=== PATIENT | female | born 1940 | race Caucasian/White ===

== ENCOUNTER 2018-06-11 11:49 | Observation (INO) | payer OTHER, BC ==
[2018-06-11] MEDS ORDERED: MORPHINE 4 MG/ML SYR ONE (12:24)
[2018-06-11] MEDS ORDERED: PROMETHAZINE 25 MG/ML VIAL ONE (12:24)
--- NOTE | 2018-06-11 13:07 | RAD REPORT ---
EXAM DESCRIPTION: CT - Head C Spine Cap Wo Con - 06/11/2018 12:34 pm TECHNIQUE: Computed axial tomography of the head and cervical spine was obtained. Coronal and sagitt al reconstruction was performed Computed axial tomography of the chest, abdomen and pelvis was obtained. Contrast was not requested. All CT scans are performed using dose optimization technique as appropriate and may include automated exposure control or mA/KV adjustment according to patient size. CLINICAL HISTORY: Head and neck injury with chest and abdominal pain status post fall COMPARISON: CTs from 2014 2016 FINDINGS: An intracranial bleed is not seen. The ventricles are normal in caliber. An old right cerebral infarct is present. An extra-axial fluid collection is not seen. Fluid within the sinuses/mastoids is not seen. A cervical fracture is not seen. No dislocation is noted. The evaluation of mediastinum, rosy, vessels, solid organs and bowel are limited secondary to the lac k of contrast administration. A mediastinal hematoma is not noted. A small to moderate right pleural effusion is present with right basilar atelectasis. Is not seen. A lung contusion is not present. The liver,spleen, pancreas, adrenals,kidneys and bladder do not demonstrate a traumatic injury. The rectum is distended with stool measuring 7.9 centimeters Mild edema is present within the subcutaneous tissues of the left flank IMPRESSION: 1. No acute intracranial abnormality is seen. 2. A cervical fracture is not visualized. 3. Mild edema within the subcutaneous tissues of the left flank may indicate contusion. Otherwise, no traumatic injury involving the chest/abdomen/pelvis is seen
--- NOTE | 2018-06-11 14:20 | RAD REPORT ---
EXAM DESCRIPTION: RAD - Femur Right - 06/11/2018 1:38 pm CLINICAL HISTORY: Right leg pain FINDINGS: No fracture is seen. The bones are osteoporotic.
--- NOTE | 2018-06-11 14:44 | RAD REPORT ---
EXAM DESCRIPTION: RAD - Femur Left - 06/11/2018 1:38 pm CLINICAL HISTORY: Left leg pain . FINDINGS: The bones are osteoporotic. There appears to be a fat fluid level within the knee joint. Although a fracture is not seen an occult fracture of the knee is suspected given the apparent lipohe marthrosis
--- NOTE | 2018-06-11 15:03 | ER ---
Nurse's Notes [facility] Name: Zeinab Deluca Age: 78 yrs Sex: Female : 1940 Arrival Date: 06/11/2018 Time: 11:57 Bed 7 Private MD: Diagnosis: Fecal impaction;Fall from bed;Pain in left knee;Contusion of flank Presentation: 06/11 11:57 Presenting complaint: [facility] staff member reports that patient fell recently ss (Wednesday), and had an XRAY of L femur and L hip obtained today. Nondisplaced Subacute fracture is reported to L femur. Son requested that patient come to ER for further evaluation of fracture. Transition of care: patient was received from another setting of care ([facility]), [facility]. Onset of symptoms is unknown. Risk Assessment: Do you want to hurt yourself or someone else? Patient reports no desire to harm self or others. Initial Sepsis Screen: Does the patient meet any 2 criteria? No. Patient's initial sepsis screen is negative. Does the patient have a suspected source of infection? No. Patient's initial sepsis screen is negative. Care prior to arrival: None. 11:57 Method Of Arrival: Stretcher ss 11:57 Acuity: NAYELY 3 ss Historical: - Allergies: 12:04 Demerol; hb 12:04 Tramadol HCl; hb - Home Meds: 12:04 acetaminophen 325 mg Oral tab 1 tab every 4-6 hours for Pain [Active]; albuterol hb sulfate 0.63 mg/3 mL Inhl nebu as needed [Active]; apixaban 5mg Oral 1 tab 2 times per day [Active]; carvedilol 3.125 mg Oral tab 1 tab 2 times per day [Active]; Claritin Oral [Active]; divalproex 125 mg Oral TbEC [Active]; docu soft [Active]; Fleet Enema 19-7 gram/118 mL Rectal enem as needed for constipation [Active]; Li-Lanta 200-200-20 mg/5 mL Oral susp 30 mL Q4H [Active]; Klor-Con M20 20 mEq Oral TbTQ 1 tab once daily for Hypokalemia Prevention [Active]; melatonin 3 mg Oral tab [Active]; Lasix 20 mg Oral tab for Peripheral Edema due to Chronic Heart Failure [Active]; promethazine 25 mg/mL injection soln 1 mL Q8H for Nausea and Vomiting [Active]; Novolin R Sub-Q [Active]; Risperdal 1 mg Oral tab 1 tab once daily [Active]; Santyl Topical [Active]; sertraline 50 mg Oral tab 1 tab once daily [Active]; trazodone 50 mg Oral tab 1 tab [Active]; - PMHx: 12:04 Anxiety; Atrial Fib; Cerebral Atherosclerosis; CHF; chronic kidney disease; CVA; hb Depression; Diabetes - NIDDM; DYSPHAGIA; Hyperlipidemia; Hypertension; schizoaffective disorder; TIA; - Immunization history:: Adult Immunizations up to date. - Social history:: Smoking status: Patient/guardian denies using tobacco. - Ebola Screening: : No symptoms or risks identified at this time. Screenin:49 Abuse screen: no s/s abuse. Nutritional screening: No deficits noted. Tuberculosis hb screening: No symptoms or risk factors identified. Fall Risk Total Peralta Fall Scale indicates High Risk Score (45 or more points). Fall prevention measures have been instituted. Side Rails Up X 2 Frequent Obs/Assessments Occuring As available patient and family educated on Fall Prevention Program and Strategies. Assessment: 12:05 General: Appears in no apparent distress. uncomfortable, Behavior is cooperative, hb crying. Pain: Unable to use pain scale. Patient appears to be crying, to be grimacing, to be moaning, FLACC scale score is 8 out of 10. Neuro: Level of Consciousness is awake, confused, Oriented to person. Cardiovascular: Heart tones S1 S2 present Capillary refill < 3 seconds Patient's skin is warm and dry. Respiratory: Airway is patent Trachea midline Respiratory effort is even, unlabored, Respiratory pattern is regular, symmetrical, Breath sounds are clear bilaterally. GI: No signs and/or symptoms were reported involving the gastrointestinal system. : No signs and/or symptoms were reported regarding the genitourinary system. EENT: No signs and/or symptoms were reported regarding the EENT system. Derm: Skin is intact, is healthy with good turgor, Skin is pink, warm \T\ dry. Musculoskeletal: shortening and external rotation of right leg noted. 12:35 Reassessment: Pt transported to radiology via stretcher with tech. 13:16 Reassessment: Pt returned from radiology via stretcher with tech. hb 14:00 Reassessment: Patient appears in no apparent distress at this time. No changes from hb previously documented assessment. Patient and/or family updated on plan of care and expected duration. Pain level reassessed. 15:00 Reassessment: Patient appears in no apparent distress at this time. No changes from hb previously documented assessment. Patient and/or family updated on plan of care and expected duration. Pain level reassessed. 16:00 Reassessment: Patient appears in no apparent distress at this time. No changes from hb previously documented assessment. Patient and/or family updated on plan of care and expected duration. Pain level reassessed. Admission ordered, awaiting room assignment at this time. Vital Signs: 12:01 BP 180 / 79; Pulse 50; Resp 16; Temp 98.1; Pulse Ox 94% on R/A; Pain 8/10; hb 13:15 BP 196 / 63; Pulse 50; Resp 15; Pulse Ox 97% on 2 lpm NC; hb 14:30 BP 147 / 62; Pulse 50; Resp 15; Pulse Ox 99% on 2 lpm NC; hb 15:30 BP 156 / 66; Pulse 54; Resp 14; Pulse Ox 97% on 2 lpm NC; hb 16:30 BP 161 / 62; Pulse 54; Resp 15; Pulse Ox 95% on 2 lpm NC; hb ED Course: 11:57 Patient arrived in ED. ss 12:03 Isa Quiñonez FNP-C is [facility]. snw 12:03 Leodan Saleh MD is Attending Physician. snw 12:05 Arm band placed on right wrist. hb 12:10 Patient has correct armband on for positive identification. Placed in gown. Bed in low hb position. Call light in reach. Side rails up X2. 12:12 Triage completed. ss 12:15 Inserted saline lock: 22 gauge in right hand, using aseptic technique. Blood collected. hb 12:21 Nely Rankin, RN is Primary Nurse. hb 12:[address] mw3 12:31 CT completed. Patient tolerated procedure well. Patient moved back from CT. mw3 12:34 CT Traumagram (Head C Spine CAP wo con) In Process Unspecified. EDMS 13:38 Femur Right XRAY In Process Unspecified. EDMS 13:38 Femur Left XRAY In Process Unspecified. EDMS 15:02 Andrew Frazier DO is Hospitalizing Provider. snw 16:33 No provider procedures requiring assistance completed. Patient admitted, IV remains in hb place. Administered Medications: 12:22 Drug: Phenergan 12.5 mg Route: IVP; Site: right hand; hb 13:15 Follow up: Response: No adverse reaction hb 12:22 Drug: morphine 4 mg Route: IVP; Site: right antecubital; hb 13:15 Follow up: Response: No adverse reaction hb 15:00 Drug: Dulcolax Suppository 10 mg Route: CT; hb 16:00 Follow up: Response: No adverse reaction hb Outcome: 15:03 Decision to Hospitalize by Provider. snw 16:33 Admitted to Tele accompanied by tech, via stretcher, room 431, with oxygen, with chart, hb Report called to Jelena. CHUY 16:33 Condition: stable 16:33 Instructed on the need for admit. 16:46 Patient left the ED. Signatures: Dispatcher [employer] EDOH Isa Quiñonez, PULPWOOD CUTTER-C PULPWOOD CUTTER-Csnw Soraya Hernandez, RN RN Nely Rankin RN RN Annie Randolph mw3 Corrections: (The following items were deleted from the chart) 12:15 11:57 Acuity: NAYELY 4 ss ss
--- NOTE | 2018-06-11 15:03 | EDPHYS ---
Physician Documentation [facility] Name: Zeinab Deluca Age: 78 yrs Sex: Female : 1940 Arrival Date: 06/11/2018 Time: 11:57 Bed 7 Private MD: ED Physician Leodan Saleh HPI: 06/11 12:22 This 78 yrs old Female presents to ER via Stretcher with complaints of Leg snw Pain. 12:22 The patient presents with pain, that is acute. The complaints affect the right leg and snw left leg. Context: The problem [facility] sustained at a [facility] or assisted [facility] facility, resulted from the patient falling, from bed, the patient is not able to bear weight, the patient is not able to ambulate, Problem is a result from a previous injury: bedbound. Onset: The symptoms/episode began/occurred 4 day(s) ago, and became persistent. Associated signs and symptoms: Pertinent positives: pain. Severity of symptoms: At their worst the symptoms were moderate, severe. It is unknown whether or not the patient has had similar symptoms in the past. It is unknown whether or not the patient has recently seen a physician. Historical: - Allergies: 12:04 Demerol; hb 12:04 Tramadol HCl; hb - Home Meds: 12:04 acetaminophen 325 mg Oral tab 1 tab every 4-6 hours for Pain [Active]; albuterol hb sulfate 0.63 mg/3 mL Inhl nebu as needed [Active]; apixaban 5mg Oral 1 tab 2 times per day [Active]; carvedilol 3.125 mg Oral tab 1 tab 2 times per day [Active]; Claritin Oral [Active]; divalproex 125 mg Oral TbEC [Active]; docu soft [Active]; Fleet Enema 19-7 gram/118 mL Rectal enem as needed for constipation [Active]; Li-Lanta 200-200-20 mg/5 mL Oral susp 30 mL Q4H [Active]; Klor-Con M20 20 mEq Oral TbTQ 1 tab once daily for Hypokalemia Prevention [Active]; melatonin 3 mg Oral tab [Active]; Lasix 20 mg Oral tab for Peripheral Edema due to Chronic Heart Failure [Active]; promethazine 25 mg/mL injection soln 1 mL Q8H for Nausea and Vomiting [Active]; Novolin R Sub-Q [Active]; Risperdal 1 mg Oral tab 1 tab once daily [Active]; Santyl Topical [Active]; sertraline 50 mg Oral tab 1 tab once daily [Active]; trazodone 50 mg Oral tab 1 tab [Active]; - PMHx: 12:04 Anxiety; Atrial Fib; Cerebral Atherosclerosis; CHF; chronic kidney disease; CVA; hb Depression; Diabetes - NIDDM; DYSPHAGIA; Hyperlipidemia; Hypertension; schizoaffective disorder; TIA; - Immunization history:: Adult Immunizations up to date. - Social history:: Smoking status: Patient/guardian denies using tobacco. - Ebola Screening: : No symptoms or risks identified at this time. ROS: 12:21 Constitutional: Negative for fever, chills, and weight loss, Eyes: Negative for injury, snw pain, redness, and discharge, ENT: Negative for injury, pain, and discharge, Neck: Negative for injury, pain, and swelling, Cardiovascular: Negative for chest pain, palpitations, and edema, Respiratory: Negative for shortness of breath, cough, wheezing, and pleuritic chest pain, Abdomen/GI: Negative for abdominal pain, nausea, vomiting, diarrhea, and constipation, Back: Negative for injury and pain, : Negative for injury, bleeding, discharge, and swelling, Skin: Negative for injury, rash, and discoloration. 12:21 MS/extremity: Positive for Son notified of femur fx on left - pt apparently fell from bed about the middle of the week. Had outpt x-rays showing nondisplaced left femur fx. Son asked pt be evaluated in ED. Exam: 12:18 Head/Face: Normocephalic, atraumatic. Eyes: Pupils equal round and reactive to light, snw extra-ocular motions intact. Lids and lashes normal. Conjunctiva and sclera are non-icteric and not injected. Cornea within normal limits. Periorbital areas with no swelling, redness, or edema. Neck: Trachea midline, no thyromegaly or masses palpated, and no cervical lymphadenopathy. Supple, full range of motion without nuchal rigidity, or vertebral point tenderness. No Meningismus. Chest/axilla: Normal chest wall appearance and motion. Nontender with no deformity. No lesions are appreciated. 12:18 Abdomen/GI: Soft, non-tender, with normal bowel sounds. No distension or tympany. No guarding or rebound. No evidence of tenderness throughout. Back: No spinal tenderness. No costovertebral tenderness. Full range of motion. Skin: Warm, dry with normal turgor. Normal color with no rashes, no lesions, and no evidence of cellulitis. 12:18 Constitutional: The patient appears awake, obese, in obvious pain. 12:18 Cardiovascular: Rate: bradycardic, Heart sounds: murmur. 12:18 Respiratory: Respirations: shallow respirations, O2 on per protocol. 12:18 Musculoskeletal/extremity: Extremities: ROM: limited active range of motion due to pain, limited passive range of motion due to pain, Pulses: are normal with no appreciated deficits, Edema, mild diffuse edema is present, appears to be in pain at bilateral lower extremities Weight bearing: is unable to bear weight, foot drop to left. 12:18 Neuro: Orientation: to person, Mentation: confused. Vital Signs: 12:01 BP 180 / 79; Pulse 50; Resp 16; Temp 98.1; Pulse Ox 94% on R/A; Pain 8/10; hb 13:15 BP 196 / 63; Pulse 50; Resp 15; Pulse Ox 97% on 2 lpm NC; hb 14:30 BP 147 / 62; Pulse 50; Resp 15; Pulse Ox 99% on 2 lpm NC; hb 15:30 BP 156 / 66; Pulse 54; Resp 14; Pulse Ox 97% on 2 lpm NC; hb 16:30 BP 161 / 62; Pulse 54; Resp 15; Pulse Ox 95% on 2 lpm NC; hb MDM: 12:06 Patient medically screened. snw 15:04 Data reviewed: vital signs, nurses notes. Data interpreted: Pulse oximetry: on room air snw is 99 %. Interpretation: normal. Counseling: I had a detailed discussion with the patient and/or guardian regarding: the historical points, exam findings, and any diagnostic results supporting the discharge/admit diagnosis, the presence of at least one elevated blood pressure reading (>120/80) during this emergency department visit, radiology results, the need for further work-up and treatment in the hospital, poor functional termite exterminator outcome. Physician consultation: Andrew Frazier DO was called at 15:05, was contacted at 15:05, regarding admission, to the telemetry unit. 10/20 14:52 Order name: CBC with Diff; Complete Time: 15:52 snw 06/11 14:52 Order name: Chem 7; Complete Time: 15:53 snw 06/11 12:17 Order name: CT Traumagram (Head C Spine CAP wo con); Complete Time: 13:17 snw 06/11 14:52 Order name: PT-INR; Complete Time: 15:52 snw 06/11 16:14 Order name: T4 Free; Complete Time: 16:18 EDMS 06/11 16:14 Order name: Thyroid Stimulating Hormone; Complete Time: 16:18 EDMS 06/11 12:17 Order name: Femur Right XRAY; Complete Time: 14:24 snw 06/11 12:17 Order name: Femur Left XRAY; Complete Time: 14:45 snw 06/11 14:45 Order name: Kamari wrap-joint: left; Complete Time: 15:59 snw 06/11 14:52 Order name: SL; Complete Time: 15:37 snw 06/11 14:53 Order name: EKG; Complete Time: 14:53 snw 06/11 14:53 Order name: EKG - Nurse/Tech; Complete Time: 15:37 snw Administered Medications: 12:22 Drug: Phenergan 12.5 mg Route: IVP; Site: right hand; hb 13:15 Follow up: Response: No adverse reaction hb 12:22 Drug: morphine 4 mg Route: IVP; Site: right antecubital; hb 13:15 Follow up: Response: No adverse reaction hb 15:00 Drug: Dulcolax Suppository 10 mg Route: [place]; hb 16:00 Follow up: Response: No adverse reaction hb Disposition: 17:25 Co-signature as Attending Physician, Leodan Saleh MD I agree with the assessment and kdr plan of care. Disposition: 06/11/18 15:03 Hospitalization ordered by Andrew Frazier for Observation. Preliminary diagnosis are Fecal impaction, Fall from bed, Pain in left knee, Contusion of flank. - Bed requested for Telemetry/MedSurg (observation). - Status is Observation. hb - Condition is Stable. - Problem is new. - Symptoms are unchanged. UTI on Admission? No Signatures: Dispatcher [employer] Leodna Lake MD MD [facility] Isa Quiñonez, OIL BOILER-C OIL BOILER-Csnw Nely Rankin, RN RN Lola Gordon, CHUY RN df Corrections: (The following items were deleted from the chart) 16:08 15:03 Hospitalization Ordered by Andrew Frazier DO for Observation. Preliminary df diagnosis is Fecal impaction; Fall from bed; Pain in left knee; Contusion of flank. Bed requested for Telemetry/MedSurg (observation). Status is Observation. Condition is Stable. Problem is new. Symptoms are unchanged. UTI on Admission? No. snw 16:46 16:08 06/11/2018 15:03 Hospitalization Ordered by Andrew Frazier DO for Observation. Preliminary diagnosis is Fecal impaction; Fall from bed; Pain in left knee; Contusion of flank. Bed requested for Telemetry/MedSurg (observation). Status is Observation. Condition is Stable. Problem is new. Symptoms are unchanged. UTI on Admission? No. df
[2018-06-11] MEDS ORDERED: ONDANSETRON 4 MG/2 ML VIAL IV PRN (15:29)
[2018-06-11] MEDS ORDERED: D50W 25 GM/50 ML SYRINGE IV PRN (15:29)
[2018-06-11] MEDS ORDERED: ACETAMINOPHEN 500 MG TAB PO PRN (15:29)
[2018-06-11] MEDS ORDERED: CODEINE 30MG/APAP 300MG TAB PO PRN (15:29)
[2018-06-11] MEDS ORDERED: MORPHINE SULF 10 MG/5 ML OSYR PO PRN (15:29)
[2018-06-11] MEDS ORDERED: ALBUTEROL 2.5 MG/3 ML NEB SOL NEB PRN (15:29)
[2018-06-11] MEDS ORDERED: GLUCAGON 1 MG/VIAL IM PRN (15:29)
[2018-06-11] MEDS ORDERED: BISACODYL 10 MG RECTAL SUPP ONE (15:37)
[2018-06-11 15:40] LABS: Protime INR 1.27
[2018-06-11 15:44] LABS: Absolute Monocytes 0.7 K/uL (0.1-1.3); Absolute Neutrophil 5.9 K/uL (1.8-8.0); Basophils % 0.8 % (0-1.3); Eosinophils % 2.6 % (0-4.4); Hematocrit 38.7 % (36.0-45.0); Lymphocytes % 13.2 % (15.3-44.8); MCH 31.4 pg (27.0-35.0); MCV 94.6 fL (80-100); MPV 10.8 fL (7.6-11.3); Monocytes % 8.4 % (3.3-12.3); RBC Red Blood Cell Count 4.09 M/uL (3.86-4.86)
--- NOTE | 2018-06-11 15:47 | P.HP ---
Certification for Inpatient Patient admitted to: Observation With expected LOS: <2 Midnights Practitioner: I am a practitioner with admitting privileges, knowledge of patient current condition, hospital course, and medical plan of care. Services: Services provided to patient in accordance with Admission requirements found in Title 42 Section 412.3 of the Code of Federal Regulations Patient History Date of Service: 06/11/18 Primary Care Provider: retirement patient Reason for admission: Fall, possible left femur fracture History of Present Illness: 78-year-old female presented from the intermediate after she rolled out of bed this past Wednesday. She had an outpatient x-ray indicating possible fracture to the left femur. Patient has severe dementia. She is bed bound. Patient with other multiple medical problems including CHF, chronic renal disease, diabetes, hypertension, history of CVAs, atrial fibrillation with chronic anti coagulation therapy, schizoaffective disorder, chronic constipation. Patient was sent to the hospital to further evaluate. Patient was seen in the emergency room. No indication of chest pain, shortness of breath or abdominal pain noted. CT head, neck, chest, abdomen shows no acute fracture. Mild to moderate right pleural effusion noted with atelectasis. Increased total noted to the colon. Mild edema to the left flank region subcutaneously noted. X-rays of the femurs shows no significant fracture. There is possible occult fracture to the left femur with noted lipohemarthrosis. Patient given pain medication in the emergency room. Patient currently stable this time. Patient was admitted for observation. I was able to speak to the son. He is aware of the patient. He understands the patient's current condition. Patient has an [id number] DNR. She remains DNR. Patient's baseline is severe dementia. She is bed bound. This is confirmed with son. Allergies meperidine HCl [From Demerol] Allergy (Severe, Verified 07/05/17 05:12) Anaphylaxis tramadol Allergy (Verified 07/05/17 05:12) unknown Tramadol HCl Allergy (Uncoded 07/05/17 05:12) Unknown Home medications list reviewed: Yes Home Medications: Acetaminophen [Tylenol*] 650 mg PO Q6HP PRN 07/05/17 Albuterol Sulfate [Albuterol Sulfate 0.083% Neb Soln] 1 vial IH BID PRN Apixaban [Eliquis] 5 mg PO BID 07/05/17 Carvedilol [Coreg*] 3.125 mg PO BID 07/05/17 Collagenase [Santyl Ointment*] 1 appl TOP BID 07/05/17 Divalproex Sodium 2 cap PO DAILY 07/05/17 Divalproex Sodium 4 cap PO BEDTIME 07/05/17 Docusate Sodium 100 mg PO BID 07/05/17 Enema, Fleet Adult [Fleet Enema Adult*] 118 ml SP DAILY PRN 07/05/17 Furosemide [Lasix*] 20 mg PO DAILY 07/05/17 Insulin -Regular Human [Novolin -R*] 100 unit SQ ACHS 07/05/17 Loratadine [Claritin*] 10 mg PO DAILY 07/05/17 Melatonin [Melatonin*] 3 mg PO BEDTIME 07/05/17 Potassium Chloride 20 meq PO DAILY 07/05/17 Risperidone [Risperdal] 1 mg PO BEDTIME 07/05/17 Sertraline HCl 50 mg PO BEDTIME 07/05/17 Sodium Chloride [Saline Nose [place]] 2 spray NS BID PRN 07/05/17 Atorvastatin Calcium [Lipitor] 40 mg PO BEDTIME #30 tablet 07/07/17 Ensure High Protein 237 ml PO BID PRN can 07/07/17 Memantine HCl [Namenda*] 10 mg PO BID #60 tablet 07/07/17 - Past Medical/Surgical History Diabetic: Yes -: CHF -: COPD -: Atrial fibrillation with chronic anti coagulation therapy -: Dysphagia -: History of strokes and TIAs -: History of UTIs -: History pacemaker placement -: Diabetes mellitus type 2 -: Schizoaffective disorder -: Chronic constipation -: Chronic renal disease -: Severe dementia -: Tracheostomy -: Cholecystectomy -: previous PEG Psychosocial/ Personal History: Patient is at a intermediate. She is DNR. Patient has [id number] DNR. She has severe dementia. Patient is bed bound. - Family History Family History: Reviewed- Non-Contributory - Social History Smoking Status: Unknown if ever smoked Alcohol use: No CD- Drugs: No Caffeine use: No Place of Residence: [place] Review of Systems is unable to be obtained Physical Examination - Physical Exam General: Alert, In no apparent distress, Demented (Severe dementia) HEENT: Atraumatic, Mucous membr. moist/pink Neck: Supple Respiratory: Crackles/rales (Mild crackles to the right base) Cardiovascular: Normal pulses, Regular rate/rhythm Gastrointestinal: Normal bowel sounds, Soft and benign, Non-distended, No tenderness, No masses, No rebound, No guarding, Other (Morbidly obese) Musculoskeletal: No tenderness, No warmth Integumentary: No erythema, No warmth, No cyanosis, Other (No significant edema to the knees, lower extremities. Left footdrop noted. Ulcer to the left foot noted. No significant hematoma to the left flank region.) Neurological: Normal strength at 5/5 x4 extr, Normal tone, Dementia (Severe dementia) Assessment and Plan - Plan Impression: Fall from bed, baseline bed-bound patient with possible occult fracture of the left distal femur Mild edema to the left flank region subcutaneously likely from fall Moderate right pleural effusion with right atelectasis with history of CHF likely diastolic Atrial fibrillation on chronic anti coagulation therapy Diabetes mellitus type 2, insulin-dependent Hypertension Hyperlipidemia Severe dementia, bed-bound Schizoaffective disorder Chronic pain Plan: Patient will be admitted for further evaluation. Will discuss case with orthopedics. I doubt patient will require surgical intervention. No significant fracture noted. Will provide in continue her prior medication for pain including morphine and codeine. Will continue with fall precautions. Patient is mainly bed-bound. Will maintain sats above 90%. Will monitor closely. Will continue with her chronic anti coalition therapy. For her diabetes will continue with sliding scale. Will continue with her hypertensive medication. Will continue with hyperlipidemia medication. Will continue with her dementia medication. Will reassess tomorrow. Anticipate possible discharge tomorrow. Case discussed at length with son. Patient has out-of- hospital DNR. Son wishes to continue her DNR status in the hospital. Son understands the patient will likely not require surgery due to her chronic medical condition and poor prognosis and risk factors. Discharge Plan: Home - Advance Directives Does patient have a Living Will: No Does patient have a Durable POA for Healthcare: No - Code Status/Comfort Care Code Status Assessed: Yes (Patient is DNR) Time Spent Managing Pts Care (In Minutes): 55
[2018-06-11 15:53] LABS: BUN Blood Urea Nitrogen 22 mg/dL (7-18); Bicarbonate 29 mmol/L (21-32); Glucose Level 171 mg/dL (74-106); Sodium Level 147 mmol/L (136-145)
[2018-06-11 16:14] LABS: Thyroid Stimulating Hormone 1.81 uIU/mL (0.360-3.740)
[2018-06-11] MEDS: INSULIN -REGULAR HUMAN 50 UNIT/0.5 ML ML SQ SCH ×2 (16:30→21:00)
[2018-06-11] MEDS ORDERED: LACTULOSE 20 GM/30 ML UCUP PO PRN (16:54)
[2018-06-11] MEDS: CARVEDILOL 3.125 MG TAB PO SCH (18:12)
[2018-06-11 18:47] VITALS: BMI 33.0
[2018-06-11] MEDS ORDERED: DIVALPROEX NA 125 MG CAP PO SCH (21:00)
[2018-06-11] MEDS ORDERED: ATORVASTATIN 40 MG TAB PO SCH (21:00)
[2018-06-11 21:36] VITALS: O2SAT 94
[2018-06-11] MEDS: APIXABAN 5 MG TABLET PO SCH (21:46)
[2018-06-11] MEDS: MEMANTINE HCL 10 MG TABLET PO SCH (21:46)
[2018-06-12 01:24] LABS: Urine Appearance CLOUDY; Urine Bilirubin NEGATIVE (NEG); Urine Blood TRACE (NEG); Urine Color DK YELLOW; Urine Glucose NEGATIVE (NEG); Urine Protein 1+ (NEG); Urine Specific Gravity 1.025 (1.005-1.030); Urine pH 5.5 (5.0-7.0)
[2018-06-12 01:25] LABS: Urine Microscopic Reflex ORDER UMIC
[2018-06-12 01:37] LABS: Urine Bacteria LOADED /HPF (<20); Urine Culture Reflex Order REFLEXED; Urine RBC <5 /HPF (NONE SEEN)
[2018-06-12] MEDS: CARVEDILOL 3.125 MG TAB PO SCH ×2 (05:59→18:18)
[2018-06-12 07:29] LABS: Absolute Lymphocytes (CBC) 1.5 K/uL (0.7-4.9); Absolute Monocytes 0.6 K/uL (0.1-1.3); Absolute Neutrophil 4.2 K/uL (1.8-8.0); Hematocrit 35.6 % (36.0-45.0); Lymphocytes % 21.7 % (15.3-44.8); MCH 31.1 pg (27.0-35.0); MCV 93.3 fL (80-100); MPV 10.5 fL (7.6-11.3); Monocytes % 8.1 % (3.3-12.3); RBC Red Blood Cell Count 3.81 M/uL (3.86-4.86)
[2018-06-12] MEDS: INSULIN -REGULAR HUMAN 50 UNIT/0.5 ML ML SQ SCH ×3 (07:30→16:30)
[2018-06-12 07:48] LABS: BUN Blood Urea Nitrogen 24 mg/dL (7-18); Bicarbonate 29 mmol/L (21-32); Glucose Level 136 mg/dL (74-106); HDL Cholesterol 32 mg/dL (40-60); LDL Cholesterol, Calculated 25 (<130); Magnesium 2.4 mg/dL (1.8-2.4); Potassium 4.4 mmol/L (3.5-5.1); Sodium Level 147 mmol/L (136-145)
[2018-06-12] MEDS ORDERED: FUROSEMIDE 20 MG TABLET PO SCH (09:00)
[2018-06-12] MEDS ORDERED: DOCUSATE NA 100 MG CAP PO SCH ×2 (09:00→12:00)
[2018-06-12] MEDS ORDERED: SERTRALINE HCL 50 MG TAB PO SCH (09:00)
[2018-06-12] MEDS ORDERED: RIVASTIGMINE 9.5 MG/24 HR PATCH TD SCH (09:00)
[2018-06-12] MEDS: MEMANTINE HCL 10 MG TABLET PO SCH (09:28)
[2018-06-12] MEDS: APIXABAN 5 MG TABLET PO SCH (09:28)
--- NOTE | 2018-06-12 10:37 | P.DS ---
Admission Date: 06/11/18 Discharge Date: 06/12/18 Primary Care Provider: detention patient Disposition: TRANSFER TO [facility] Discharge Condition: GOOD Reason for Admission: Fall, possible left femur fracture Consultations: Orthopedics-Dr. Hennessy Procedures: CT scan: COMPARISON: CTs from 2014 2016 FINDINGS: An intracranial bleed is not seen. The ventricles are normal in caliber. An old right cerebral infarct is present. An extra-axial fluid collection is not seen. Fluid within the sinuses/mastoids is not seen. A cervical fracture is not seen. No dislocation is noted. The evaluation of mediastinum, rosy, vessels, solid organs and bowel are limited secondary to the lack of contrast administration. A mediastinal hematoma is not noted. A small to moderate right pleural effusion is present with right basilar atelectasis. A lung contusion is not present. The liver,spleen, pancreas, adrenals,kidneys and bladder do not demonstrate a traumatic injury. The rectum is distended with stool measuring 7.9 centimeters Mild edema is present within the subcutaneous tissues of the left flank IMPRESSION: 1. No acute intracranial abnormality is seen. 2. A cervical fracture is not visualized. 3. Mild edema within the subcutaneous tissues of the left flank may indicate contusion. Otherwise, no traumatic injury involving the chest/abdomen/pelvis is seen Femur Xray: CLINICAL HISTORY: Left leg pain. FINDINGS: The bones are osteoporotic. There appears to be a fat fluid level within the knee joint. Although a fracture is not seen an occult fracture of the knee is suspected given the apparent lipohemarthrosis Medical Problem List: Fall from bed, baseline bed-bound patient with no fracture identified Mild edema to the left flank region subcutaneously likely from fall Mild to Moderate right pleural effusion with right atelectasis with history of CHF likely diastolic Atrial fibrillation on chronic anti coagulation therapy Diabetes mellitus type 2, insulin-dependent Hypertension Hyperlipidemia Severe dementia, bed-bound Schizoaffective disorder Chronic pain Chronic constipation Brief History of Present Illness: 78-year-old female presented from the halfway after she rolled out of bed this past Wednesday. She had an outpatient x-ray indicating possible fracture to the left femur. Patient has severe dementia. She is bed bound. Patient with other multiple medical problems including CHF, chronic renal disease, diabetes, hypertension, history of CVAs, atrial fibrillation with chronic anti coagulation therapy, schizoaffective disorder, chronic constipation. Patient was sent to the hospital to further evaluate. Patient was seen in the emergency room. No indication of chest pain, shortness of breath or abdominal pain noted. CT head, neck, chest, abdomen shows no acute fracture. Mild to moderate right pleural effusion noted with atelectasis. Increased total noted to the colon. Mild edema to the left flank region subcutaneously noted. X-rays of the femurs shows no significant fracture. There is possible occult fracture to the left femur with noted lipohemarthrosis. Patient given pain medication in the emergency room. Patient currently stable this time. Patient was admitted for observation. I was able to speak to the son. He is aware of the patient. He understands the patient's current condition. Patient has an iul-ci-twxwkgrx DNR. She remains DNR. Patient's baseline is severe dementia. She is bed bound. This is confirmed with son. Hospital Course: Patient presented to the ER for possible left femur fracture. Patient had fallen out of bed early this week at the halfway. Outpatient x-ray showed possible fracture. Patient was sent over further evaluate. X-ray shows possible occult fracture to the distal femur with noted lipohemarthrosis. Patient was seen evaluated by orthopedics. Orthopedics reviewed films. No fracture identified. Patient has significant osteoporotic changes. Patient has severe dementia and is bed-bound. Patient also has [id number] DNR and remains DNR. Patient will not require surgical intervention due to her chronic medical conditions. Patient may return to the halfway. Fall precautions will need to be in place. Patient had mild edema to the left flank region subcutaneously likely from fall. This can be monitored closely. No need for intervention at this time. Patient found to have mild to moderate right pleural effusion with right atelectasis with history of CHF. Patient will continue with Lasix 20 mg 1 pill daily. Patient may continue with albuterol 1 unit dose 3 times a day as needed for shortness of breath. This can be monitored closely as an outpatient. Patient may require oxygen to maintain sats above 90%. Patient has atrial fibrillation on chronic anti coagulation therapy. Patient also with history of CVA and left footdrop. Patient is non communicating with severe dementia. Patient will continue with Eliquis 5 mg 1 pill twice daily and carvedilol 3.125 mg 1 pill twice daily. Further adjustment can be done by cardiology as an outpatient. Patient has hypertension. Blood pressure slightly elevated. Patient will continue with carvedilol 3.125 mg 1 pill twice daily. At discharge lisinopril 5 mg 1 pill daily added. Recommendation to maintain blood pressures less 150/ 80. Further adjustment can be done by halfway physician. Patient has diabetes mellitus type 2. Patient may continue with insulin therapy as previous. Recommendation to maintain blood sugars less 140 fasting and less than 200 after meals. Hypoglycemia will need to be monitored especially with her chronic medical conditions and dementia. Patient has severe dementia. She is bed bound. Patient has [id number]-fc-coaomoez DNR in remains DNR. Patient will continue with her medications including Exelon patch 9.5 mg daily, Namenda 10 mg 1 pill twice daily. Further adjustment can be done at the halfway. Patient has schizoaffective disorder. Patient will continue with Zoloft 50 mg daily and Depakote 500 mg every bedtime. Further adjustment can be done at the halfway. Patient with history of chronic constipation. Patient may continue with docusate 100 mg daily. Lactulose twice daily can be use as needed for constipation. Patient with chronic pain. Patient is using codeine and morphine as needed. Will need to limit pain medication due to constipation. This can be further monitored and addressed by the halfway physician. Patient has hyperlipidemia. Patient will continue with Lipitor 40 mg daily. Patient has ulcers to the left foot. Patient will continue with wound care as directed previously. Vital Signs/Physical Exam: Temp Pulse Resp BP Pulse Ox 97.9 F 50 18 181/74 H 96 06/12/18 08:00 06/12/18 09:28 06/12/18 08:00 06/12/18 09:28 06/12/18 08:00 General: Alert, Demented (Severe dementia noted. Patient non communicating) HEENT: Atraumatic Neck: Supple Respiratory: Clear to auscultation bilaterally, Normal air movement Cardiovascular: Normal pulses, Regular rate/rhythm Gastrointestinal: Normal bowel sounds, Soft and benign, Non-distended, No masses , No rebound, No guarding Musculoskeletal: No erythema, No warmth, Other (Mild edema to the left knee region. Patient with left footdrop and ulcers noted to the foot) Integumentary: No erythema, No warmth, No cyanosis Neurological: Dementia (Severe dementia.) Laboratory Data at Discharge: WBC 6.8 K/uL (4.3-10.9) 06/12/18 07:09 Hgb 11.9 g/dL (12.0-15.0) L 06/12/18 07:09 Hct 35.6 % (36.0-45.0) L 06/12/18 07:09 Plt Count 149 K/uL (152-406) L 06/12/18 07:09 PT 15.0 SECONDS (9.5-12.5) H 06/11/18 15:28 INR 1.27 06/11/18 15:28 Sodium 147 mmol/L (136-145) H 06/12/18 07:09 Potassium 4.4 mmol/L (3.5-5.1) 06/12/18 07:09 BUN 24 mg/dL (7-18) H 06/12/18 07:09 Creatinine 0.50 mg/dL (0.55-1.3) L 06/12/18 07:09 Glucose 136 mg/dL (74-106) H 06/12/18 07:09 Magnesium 2.4 mg/dL (1.8-2.4) 06/12/18 07:09 Triglycerides 95 mg/dL (<150) 06/12/18 07:09 Cholesterol 76 mg/dL (<200) 06/12/18 07:09 HDL Cholesterol 32 mg/dL (40-60) L 06/12/18 07:09 Cholesterol/HDL Ratio 2.38 06/12/18 07:09 Home Medications: Acetaminophen [Tylenol*] 650 mg PO Q6HP PRN 07/05/17 Albuterol Sulfate [Albuterol Sulfate 0.083% Neb Soln] 1 vial IH BID PRN Apixaban [Eliquis] 5 mg PO BID 07/05/17 Carvedilol [Coreg*] 3.125 mg PO BID 07/05/17 Divalproex Sodium 4 cap PO BEDTIME 07/05/17 Docusate Sodium 100 mg PO BID 07/05/17 Furosemide [Lasix*] 20 mg PO DAILY 07/05/17 Insulin -Regular Human [Novolin -R*] See Protocol SQ ACHS 07/05/17 Melatonin [Melatonin*] 3 mg PO BEDTIME 07/05/17 Potassium Chloride 20 meq PO DAILY 07/05/17 Sertraline HCl 50 mg PO BEDTIME 07/05/17 Atorvastatin Calcium [Lipitor] 40 mg PO BEDTIME #30 tablet 07/07/17 Memantine HCl [Namenda*] 10 mg PO BID #60 tablet 07/07/17 Ascorbic Acid 500 mg PO BID 06/11/18 Codeine/APAP [Tylenol #3*] 1 tab PO Q12HP PRN 06/11/18 Insulin NPH Human [Novolin N (Humulin N)*] 15 units SQ BEDTIME 06/11/18 Insulin NPH Human [Novolin N (Humulin N)*] 20 units SQ DAILY 06/11/18 Methyl Salicylate/Menthol [Muscle Rub Cream] 35 gm TP Q12H PRN 06/11/18 Morphine Sulfate 10 mg SL Q1H PRN 06/11/18 Promethazine HCl 25 mg PO Q6H PRN 06/11/18 Rivastigmine [Exelon] 1 patch TD DAILY 06/11/18 Lisinopril [Prinivil*] 5 mg PO DAILY #30 tab 06/12/18 New Medications: Lisinopril [Prinivil*] 5 mg PO DAILY #30 tab Patient Discharge Instructions: 1. Patient will return to the halfway. 2. Patient presented to the ER for possible left femur fracture. Patient had fallen out of bed early this week at the halfway. Outpatient x-ray showed possible fracture. Patient was sent over further evaluate. X-ray shows possible occult fracture to the distal femur with noted lipohemarthrosis. Patient was seen evaluated by orthopedics. Orthopedics reviewed films. No fracture identified. Patient has significant osteoporotic changes. Patient has severe dementia and is bed-bound. Patient also has [id number]-zy-uyfzxqed DNR and remains DNR. Patient will not require surgical intervention due to her chronic medical conditions. Patient may return to the halfway. Fall precautions will need to be in place. 3. Patient had mild edema to the left flank region subcutaneously likely from fall. This can be monitored closely. No need for intervention at this time. 4. Patient found to have mild to moderate right pleural effusion with right atelectasis with history of CHF. Patient will continue with Lasix 20 mg 1 pill daily. Patient may continue with albuterol 1 unit dose 3 times a day as needed for shortness of breath. This can be monitored closely as an outpatient. Patient may require oxygen to maintain sats above 90%. 5. Patient has atrial fibrillation on chronic anti coagulation therapy. Patient also with history of CVA and left footdrop. Patient is non communicating with severe dementia. Patient will continue with Eliquis 5 mg 1 pill twice daily and carvedilol 3.125 mg 1 pill twice daily. Further adjustment can be done by cardiology as an outpatient. 6. Patient has hypertension. Blood pressure slightly elevated. Patient will continue with carvedilol 3.125 mg 1 pill twice daily. At discharge lisinopril 5 mg 1 pill daily added. Recommendation to maintain blood pressures less 150/80. Further adjustment can be done by halfway physician. 7. Patient has diabetes mellitus type 2. Patient may continue with insulin therapy as previous. Recommendation to maintain blood sugars less 140 fasting and less than 200 after meals. Hypoglycemia will need to be monitored especially with her chronic medical conditions and dementia. 8. Patient has severe dementia. She is bed bound. Patient has zoz-sc-izfrbutf DNR in remains DNR. Patient will continue with her medications including Exelon patch 9.5 mg daily, Namenda 10 mg 1 pill twice daily. Further adjustment can be done at the halfway. 9. Patient has schizoaffective disorder. Patient will continue with Zoloft 50 mg daily and Depakote 500 mg every bedtime. Further adjustment can be done at the halfway. 10. Patient with history of chronic constipation. Patient may continue with docusate 100 mg daily. Lactulose twice daily can be use as needed for constipation. 11. Patient with chronic pain. Patient is using codeine and morphine as needed. Will need to limit pain medication due to constipation. This can be further monitored and addressed by the halfway physician. 12. Patient has hyperlipidemia. Patient will continue with Lipitor 40 mg daily. 13. Patient has ulcers to the left foot. Patient will continue with wound care as directed previously. Diet: As previous Activity: Fall precautions Time spent managing pt's care (in minutes): 55
[2018-06-12] MEDS ORDERED: ASCORBIC ACID 500 MG TABLET PO SCH (11:30)
[2018-06-12] MEDS ORDERED: LISINOPRIL 5 MG TAB PO SCH (12:00)
--- NOTE | 2018-06-12 15:56 | CON ---
Reason For Consultation: Possible occult fracture, right distal femur. History Of Present Illness: Ms. Deluca is a 78-year-old woman with significant medical problems which would preclude her from being a viable operative candidate. We were asked to evaluate for a po ssible occult fracture. Review of all the studies reveal no fracture. There is no history that the bones are severely osteoporotic. Regardless, this injury would be weightbearing as tolerated if she were an ambulatory candidate. There is no operative or therapeutic intervention warranted from ortho pedic standpoint at this time. Thank you for allowing me to participate in her care. JEY Voice ID: [id number] Report ID: [id number]
[2018-06-12 17:18] VITALS: BP 147/67; TEMP 97.4
--- NOTE | 2018-06-12 17:35 | EKG ---
Test Date: 2018-06-11 Test Time: 15:25:18 Insulation Cupola Operator: KATE MEASUREMENT RESULTS: Intervals: Rate: 50 PA: QRSD: 150 QT: 466 QTc: 424 Holmen: P: PA: QRS: -84 T: 51 INTERPRETIVE STATEMENTS: Ventricular-paced rhythm Abnormal ECG Compared to ECG 07/04/2017 23:01:38 Atrial-sensed ventricular-paced complex(es) or rhythm no longer present Sinus rhythm no longer present Electronically Signed On 06-12-18 17:33:39 CDT by Winston White
[2018-06-12] MEDS ORDERED: HOME MED 1 EA UNK (Docusate Sodium [Docusate Sodium] 100 MG) PO SCH (21:00)
[2018-06-12] MEDS ORDERED: MELATONIN 3 MG TABLET PO SCH (21:00)
== END 2018-06-12 18:56 ==
LOC: ER 11:49 → ERHOLD 15:10 → 4TH 16:31
PROVIDERS: ADMIT Family Medicine; ATTEND Family Medicine
DX: S89.92XA Unspecified injury of left lower leg, initial encounter (principal); W06.XXXA Fall from bed, initial encounter; Y92.199 Unspecified place in other specified residential institution as the place of occurrence of the external cause; I11.0 Hypertensive heart disease with heart failure; I50.32 Chronic diastolic (congestive) heart failure; J98.11 Atelectasis; F25.9 Schizoaffective disorder, unspecified; K59.09 Other constipation; G89.29 Other chronic pain; I48.2 Chronic atrial fibrillation; E78.5 Hyperlipidemia, unspecified; R60.9 Edema, unspecified; E11.621 Type 2 diabetes mellitus with foot ulcer; L97.529 Non-pressure chronic ulcer of other part of left foot with unspecified severity; Z74.01 Bed confinement status; Z79.01 Long term (current) use of anticoagulants; Z86.73 Personal history of transient ischemic attack (TIA), and cerebral infarction without residual deficits; M21.372 Foot drop, left foot; Z95.0 Presence of cardiac pacemaker
CPT/HCPCS: 36415; 70450; 71250; 72125; 73552 ×2; 80048 ×2; 80061; 82962 ×5; 83735; 84145; 84439; 84443; 85025 ×2; 85610; 87077 ×2; 87086; 87088; 87186 ×2; 93005; 99285; G0378 ×2; J2550; 81003; 81015

== ENCOUNTER 2019-06-29 16:21 | Emergency (ER) | payer OTHER ==
--- NOTE | 2019-06-29 17:25 | RAD REPORT ---
EXAM DESCRIPTION: RAD - Pelvis - 06/29/2019 5:04 pm CLINICAL HISTORY: Pelvic pain status post injury FINDINGS: No fracture or dislocation is seen. The bones are osteoporotic If the patient continues to have symptoms to suggest an occult fracture then MRI would be recommended
--- NOTE | 2019-06-29 17:26 | RAD REPORT ---
EXAM DESCRIPTION: RAD - Knee Right 2 View - 06/29/2019 5:04 pm CLINICAL HISTORY: Right knee pain status post injury FINDINGS: A limited two view series was obtained An oblique moderately displaced fracture involves the distal right femur. The bones are osteoporotic Large joint effusion
--- NOTE | 2019-06-29 17:35 | ER ---
Nurse's Notes [facility] Name: Zeinab Deluca Age: 79 yrs Sex: Female : 1940 Arrival Date: 06/29/2019 Time: 16:18 Bed 6 Private MD: Diagnosis: Distal Right Femur Fracture Presentation: 06/29 16:18 Presenting complaint: EMS states: FALL FROM BED AT [facility], NO LOC. Transition of bp care: patient was received from another setting of care (long-term care facility), [facility]. Onset of symptoms was June 29, 2019 at 16:00. Risk Assessment: Do you want to hurt yourself or someone else? Patient reports no desire to harm self or others. Initial Sepsis Screen: Does the patient meet any 2 criteria? No. Patient's initial sepsis screen is negative. Does the patient have a suspected source of infection? No. Patient's initial sepsis screen is negative. Care prior to arrival: Glucose check: 212. 16:18 Method Of Arrival: EMS: [facility] bp 16:18 Acuity: NAYELY 3 bp Triage Assessment: 16:20 General: Appears in no apparent distress. uncomfortable, obese, Behavior is bp cooperative, anxious. Pain: Complains of pain in right knee. EENT: No deficits noted. Neuro: Level of Consciousness is awake, obeys commands, Oriented to person, situation. Cardiovascular: No deficits noted. Respiratory: No deficits noted. GI: No signs and/or symptoms were reported involving the gastrointestinal system. : No signs and/or symptoms were reported regarding the genitourinary system. Derm: No deficits noted. Musculoskeletal: No deficits noted. Historical: - Allergies: 16:20 Demerol; bp 16:20 Tramadol HCl; bp - PMHx: 16:20 Anxiety; Atrial Fib; Depression; CVA; TIA; Cerebral Atherosclerosis; CHF; chronic bp kidney disease; Diabetes - NIDDM; DYSPHAGIA; Hyperlipidemia; Hypertension; schizoaffective disorder; - Immunization history:: Adult Immunizations up to date. - Social history:: Smoking status: Patient/guardian denies using tobacco. - Ebola Screening: : No symptoms or risks identified at this time. Screenin:27 Abuse screen: Denies threats or abuse. Denies injuries from another. Nutritional bp screening: No deficits noted. Tuberculosis screening: No symptoms or risk factors identified. Fall Risk Fall in past 12 months (25 points). Secondary diagnosis (15 points) Alzheimer's, dementia, No IV (0 pts). Assessment: 16:25 General: Appears distressed, comfortable, obese, Behavior is cooperative. bp 16:25 General: SEE TRIAGE NOTE. bp 17:44 Reassessment: REPORT TO LANDON VERA AT [facility] ER. TRANSPORT PENDING. bp 18:03 Reassessment: EMS AT B/S FOR TRANSPORT. bp Vital Signs: 16:20 BP 184 / 75; Pulse 50; Resp 16; Temp 98.7; Pulse Ox 100% ; Weight 81.65 kg; bp 17:30 BP 181 / 55; Pulse 50; Resp 16; Pulse Ox 98% ; bp ED Course: 16:18 Patient arrived in ED. bp 16:19 Triage completed. bp 16:20 Arm band placed on. bp 16:21 Killian Palomo PA is PHCP. jr8 16:21 Leodan Saleh MD is Attending Physician. jr8 16:26 Bobo Conti RN is Primary Nurse. bp 16:27 Patient has correct armband on for positive identification. Bed in low position. Call bp light in reach. Side rails up X2. 17:08 XRAY Pelvis In Process Unspecified. EDMS 17:08 Knee Right 2 View In Process Unspecified. EDMS 17:19 initiated a transfer with Camryn from the [facility] [place]. eb 17:[address] Omalley the Emergency Room doctor professional builder for [facility] with curry POLK for patient transfer consultation. 17:27 administrative approval given by Camryn Bangura/ patient has been accepted to [facility] ER/ Dr. Omalley has accepted the patient in transfer/ report to be called to [phone]. 17:53 No provider procedures requiring assistance completed. Inserted saline lock: 22 gauge bp in right antecubital area, using aseptic technique. Patient transferred, IV remains in place. Administered Medications: No medications were administered Outcome: 17:34 ER care complete, transfer ordered by . jr8 18:05 Transferred by ground EMS to [facility], Transfer form completed. bp 18:05 Condition: stable 18:05 Instructed on the need for transfer. 18:06 Patient left the ED. bp Signatures: Dispatcher [employer] EDMS Roszak, Killian, PA PA jr8 Bobo Conti, RN RN bp Lexii Sanders
--- NOTE | 2019-06-29 17:35 | EDPHYS ---
Physician Documentation [facility] Name: Zeinab Deluca Age: 79 yrs Sex: Female : 1940 Arrival Date: 06/29/2019 Time: 16:18 Bed 6 Private MD: ED Physician Leodan Saleh HPI: 06/29 17:18 This 79 yrs old Female presents to ER via EMS with complaints of Fall Injury. jr8 17:21 Details of fall: The patient fell from seated position, off the edge of a bed. Onset: jr8 The symptoms/episode began/occurred acutely, today. Associated injuries: The patient sustained right leg, decreased range of motion, deformity, painful injury, swelling. Severity of symptoms: At their worst the symptoms were moderate, in the emergency department the symptoms are unchanged. The patient has not experienced similar symptoms in the past. The patient has not recently seen a physician. Patient stated that she fell out of her bed. Denies hitting head or neck. Pain only to right knee. Historical: - Allergies: 16:20 Demerol; bp 16:20 Tramadol HCl; bp - PMHx: 16:20 Anxiety; Atrial Fib; Depression; CVA; TIA; Cerebral Atherosclerosis; CHF; chronic bp kidney disease; Diabetes - NIDDM; DYSPHAGIA; Hyperlipidemia; Hypertension; schizoaffective disorder; - Immunization history:: Adult Immunizations up to date. - Social history:: Smoking status: Patient/guardian denies using tobacco. - Ebola Screening: : No symptoms or risks identified at this time. ROS: 17:21 Eyes: Negative for injury, pain, redness, and discharge, ENT: Negative for injury, jr8 pain, and discharge, Neck: Negative for injury, pain, and swelling, Cardiovascular: Negative for chest pain, palpitations, and edema, Respiratory: Negative for shortness of breath, cough, wheezing, and pleuritic chest pain, Abdomen/GI: Negative for abdominal pain, nausea, vomiting, diarrhea, and constipation, Back: Negative for injury and pain, Skin: Negative for injury, rash, and discoloration, Neuro: Negative for headache, weakness, numbness, tingling, and seizure. 17:21 MS/extremity: Positive for decreased range of motion, deformity, pain, swelling, tenderness, of the right knee and right leg. Exam: 17:21 Head/Face: Normocephalic, atraumatic. Eyes: Pupils equal round and reactive to light, jr8 extra-ocular motions intact. Lids and lashes normal. Conjunctiva and sclera are non-icteric and not injected. Cornea within normal limits. Periorbital areas with no swelling, redness, or edema. ENT: Nares patent. No nasal discharge, no septal abnormalities noted. Tympanic membranes are normal and external auditory canals are clear. Oropharynx with no redness, swelling, or masses, exudates, or evidence of obstruction, uvula midline. Mucous membranes moist. Neck: Trachea midline, no thyromegaly or masses palpated, and no cervical lymphadenopathy. Supple, full range of motion without nuchal rigidity, or vertebral point tenderness. No Meningismus. Cardiovascular: Regular rate and rhythm with a normal S1 and S2. No gallops, murmurs, or rubs. Normal PMI, no JVD. No pulse deficits. Respiratory: Lungs have equal breath sounds bilaterally, clear to auscultation and percussion. No rales, rhonchi or wheezes noted. No increased work of breathing, no retractions or nasal flaring. Abdomen/GI: Soft, non-tender, with normal bowel sounds. No distension or tympany. No guarding or rebound. No evidence of tenderness throughout. Back: No spinal tenderness. No costovertebral tenderness. Full range of motion. Skin: Warm, dry with normal turgor. Normal color with no rashes, no lesions, and no evidence of cellulitis. Neuro: Awake and alert, GCS 15, oriented to person, place, time, and situation. Cranial nerves II-XII grossly intact. Motor strength 5/5 in all extremities. Sensory grossly intact. Cerebellar exam normal. Normal gait. 17:21 Musculoskeletal/extremity: Extremities: grossly normal except: noted in the right leg: Large effusion with anterior displacement of distal femur noted to right leg just above the knee. Decreased ROM with pain noted. Pulses 2 + to affected extremity with no gross decrease in sensation. All other extremities unremarkable and with no obvious trauma . Vital Signs: 16:20 BP 184 / 75; Pulse 50; Resp 16; Temp 98.7; Pulse Ox 100% ; Weight 81.65 kg; bp 17:30 BP 181 / 55; Pulse 50; Resp 16; Pulse Ox 98% ; bp MDM: 16:36 Patient medically screened. jr8 17:23 Data reviewed: vital signs, nurses notes, radiologic studies, plain films. Data jr8 interpreted: Pulse oximetry: on room air is 100 %. Interpretation: normal. Counseling: I had a detailed discussion with the patient and/or guardian regarding: the historical points, exam findings, and any diagnostic results supporting the discharge/admit diagnosis, radiology results, the need to transfer to another facility, [facility] does not immediately have the required specialist. ED course: Dr. Omalley consulted at [place] and accepted patient . 06/29 16:36 Order name: XRAY Pelvis; Complete Time: 18:02 jr8 06/29 17:08 Order name: Knee Right 2 View; Complete Time: 18:02 EDMS Administered Medications: No medications were administered Disposition: 06/30 07:18 Co-signature as Attending Physician, Leodan Saleh MD I agree with the assessment and kdr plan of care. Disposition: 06/29/19 17:34 Transfer ordered to [facility]. Diagnosis is Distal Right Femur Fracture . - Reason for transfer: Higher level of care. - Accepting physician is Dr. Omalley. - Condition is Stable. - Problem is new. - Symptoms are unchanged. Signatures: Dispatcher [employer] EDOH Leodan Saleh MD MD [facility] Killian Palomo PA PA jr8 Bobo Conti, RN RN bp Corrections: (The following items were deleted from the chart) 06/29 17:08 16:38 Knee Right 3 View+RAD.RAD.BRZ ordered. [facility] EDOH 18:06 17:34 06/29/2019 17:34 Transfer ordered to [facility]. bp Diagnosis is Distal Right Femur Fracture . Reason for transfer: Higher level of care. Accepting physician is Dr. Omalley. Condition is Stable. Problem is new. Symptoms are unchanged. jr8
[2019-06-29 19:02] VITALS: BP 181/55; O2SAT 98
--- OUTSIDE RECORDS SUMMARY | 2019-07-03 04:27 | XMS REPORT ---
:1940 [facility] [address] [place] [address] [place] [id number] Care Team Providers Name Role Phone Unavailable Unavailable Unavailable Problems This patient has no known problems. Allergies, Adverse Reactions, Alerts This patient has no known allergies or adverse reactions. Medications This patient has no known medications. Encounters Start End Encounter Admission Attending Care Care Encounter Date/Time Date/Time Type Type Clinicians Facility Department ID 2019-07-01 2019-06-[address] [facility] [id number] 08:29:00 09:39:00
== END 2019-06-29 18:06 | disposition short-term general hospital (02) ==
LOC: ER 16:21
DX: S72.401A Unspecified fracture of lower end of right femur, initial encounter for closed fracture (principal); W06.XXXA Fall from bed, initial encounter; Y93.89 Activity, other specified; Y92.013 Bedroom of single-family (private) house as the place of occurrence of the external cause; Z88.6 Allergy status to analgesic agent
CPT/HCPCS: 72170; 99285

== ENCOUNTER 2020-03-22 18:31 | Observation (INO) | payer OTHER ==
--- OUTSIDE RECORDS SUMMARY | 2020-03-22 18:36 | XMS REPORT | Continuity of Care Document ---
:1940 Author Organization [email or web address] Care Team Providers Name Role [facility] [email or web address] Unavailable Un available Problems Problem Status Onset Classification Date Comments Sourc e Date Reported FALL Active [address] FEMUR FX, RIGHT Active [address] ISCHEMIC CVA SEEN ON Active [facility] [place] [facility] Asthma (disorder) Resolved Problem 07/08/2019 [facility] Congestive heart Resolved Problem 07/08/2019 [facility] Resolved Problem 07/08/2019 [facility] lung disease Medical (disorder) Center Atherosclerosis of Active Problem 07/08/2019 Data [facility] coronary artery migrated Medi [place] (disorder) from [facility] on 01/19/15. Diabetes mellitus Resolved Problem 07/08/2019 [facility] [place] [facility] (disorder) [facility] Essential hypertension Active Problem 07/08/2019 Data [facility] (disorder) migrated Medical from [facility] on 01/19/15. 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 Cardiac pacemaker in Resolved Problem 07/08/2019 [facility] situ (finding) Medic al Center Sleep apnea (finding) Resolved Problem 07/08/2019 [facility] Transient ischemic Resolved Problem 07/08/2019 [facility] mellitus type Active Problem 07/08/2019 Data [facility] 1 (disorder) migrated Medical from [facility] on 01/19/15. CVA Active [facility] UNSP FRACTURE OF RIGHT Active [facility] FEMUR, INIT FOR C In dical [place] Medications Medication Details Route Status Patient Ordering Order Source Instructions Provider Date Acetaminophen 500 1,000 mg = 2 Active H [place] MG Oral Tablet tab, PO, Q6Hnow, 2018 Medical 0 Refill(s) [place] carvedilol 6.25 6.25 mg = 1 tab, Active [place] mg oral tablet PO, Q12H, 0 2018 Medic al Refill(s) [place] Insulin Glargine 8 unit, SUB-Q, Active [place] 100 UNT/ML Bedtime, 0 2018 Medical Injectable Refill(s) [place] Solution [Lantus] Lidocaine 1 patch, TOP, Active [place] Hydrochloride Q24H, 0 2018 Medical 0.05 MG/MG Refill(s) [place] Transdermal Patch [Lidoderm] minocycline 100 100 mg = 1 cap, Active [place] mg oral capsule PO, Q12H, 0 2018 Medi [place]ilou Refill(s) [place] POLYETHYLENE 17 gm = 1 pkt, [place] GLYCOL 3350 PO, Daily, 0 2018 Medical Refill(s) [place] potassium 20 mEq, 15 mL, Inactive Sergio as chloride Route: PO, Drug 2018 Medical form: LIQ, [place] Daily, Dosing Weight 81, kg, Start date: 07/06/19 9:00:00 [employer]ILROAD [employer], Duration: 30 day, Stop date: 08/04/19 9:00:00 RAILROAD [employer] CHECKER, 0 Insulin Glargine 8 unit, 0.08 mL, No Longer 06/23 [place] 100 UNT/ML Route: SUB-Q, Active 2018 Medical Injectable Drug form: SOLN, Cent er Solution [Lantus] Bedtime, Dosing Weight 81, kg, Start date: 07/05/19 21:00:00 RAILROAD [employer] CHECK[employer], Duration: 30 day, Stop date: 08/03/19 21:00:00 RAILROAD CAR CHECKER, 0 carvedilol Notes: Give with No Longer [place] food. (Same As: Active 2019 Medical Coreg) Center Coreg Notes: Give with Inactive [place] as food. (Same As: 2019 Medical Coreg) Center Lasix Notes: (Same as: Inactive [place] as Lasix) 2019 Medical Center Cefazolin 2 gm, 20 mL, Inactive [place] Route: IVP, Drug 2019 Medical form: SOLN, Q8H, Center Dosing Weight 81, kg, Start date: 07/04/19 2:30:00 RAILROAD [employer] CHECK[employer], Duration: 3 doses or times, Stop date: 07/04/19 18:30:00 RAILROAD CAR CHECKER, ABX Indication: Surgical Prophylaxis, 0 hydromorphone Route: IV, Drug Inactive [facility] [place] [facility] (ANES) form: INJ, ONCE, 2018 Medical Stop date: [place] 07/03/19 20:12:00 RAILROAD [employer] CHECKER dexmedetomidine Route: IV, Drug Inactive 07/04[facility] (ANES) form: INJ, ONCE, 2018 Medical Stop date: [place] 07/03/19 20:05:00 RAILROAD CAR CHECKER acetaminophen Route: IV, Drug Inactive 07/04[facility] (ANES) form: INJ, ONCE, 2018 Medical Stop date: [place] 07/03/19 20:00:00 RAILROAD CAR CHECK[employer] dexmedetomidine Route: IV, Drug Inactive [facility] (ANES) form: INJ, ONCE, 2018 Medical Stop date: [place] 07/03/19 19:30:00 RAILROAD [employer] CHECKER Labetalol 10 mg, Route: Inactive 07/04[facility] Sergioa s IVP, Q5Min, 2019 Medical Dosing Weight Center 81, kg, PRN Elevated BP, Start date: 07/03/19 19:26:00 RAILROAD [employer] CHECK[employer], Duration: 5 doses or times, Stop date: Limited # of times Oxycodone 2.5 mg, Route: Inactive 07/04[facility] Sergio as PO, Drug form: 2019 Medical LIQ, Q4H, Dosing Center Weight 81, kg, PRN Pain Score 4-6, Start date: 07/03/19 19:26:00 RAILROAD [employer] CHECK[employer], Duration: 30 day, Stop date: 08/02/19 19:25:00 RAILROAD [employer] CHECKER Hydromorphone 0.2 mg, Route: Inactive 07/04[facility] [place] IVP, Q10Min, 2019 Medical Dosing Weight Center 81, kg, PRN Pain Score 7-10, Start date: 07/03/19 19:26:00 RAILROAD CAR CHECKER, Duration: 5 doses or times, Stop date: Limited # of times Flumazenil 0.2 mg, Route: Inactive 07/04[facility] [place] IVP, PRN, Dosing 2019 Medical Weight 81, kg, Center PRN Benzodiazepine Reversal, Initial dose, Start date: 07/03/19 19:26:00 RAILROAD [employer] CHECKER, Duration: 30 day, Stop date: 08/02/19 19:25:00 RAILRO[employer] CHECK[employer] Naloxone 0.4 mg, Route: Inactive [place] IVP, Q2MIN, 2019 Medical Dosing Weight Center 81, kg, PRN Narcotic Reversal, Start date: 07/03/19 19:26:00 RAILROAD [employer] CHECK[employer], Duration: 8 doses or times, Stop date: Limited # of times Ondansetron 4 mg, Route: Inactive [place] IVP, ONCE, 2019 Medical Dosing Weight Center 81, kg, PRN Nausea & Vomiting, Start date: 07/03/19 19:26:00 RAILROAD [employer] CHECK[employer] bupivacaine Route: Inactive [place] (ANES) INTRATHECAL, 2019 Medical Drug Form: INJ, Center ONCE, Stop date: 07/03/19 19:25:00 RAILROAD CAR CHECK[employer] ceFAZolin (ANES) Route: IV, Drug Inactive [facility] form: INJ, ONCE, 2018 Medical Stop date: [place] 07/03/19 19:09:00 RAILROAD CAR CHECKER Sodium Chloride Route: IV, Total Inactive [place] 0.9% IV ([facility]) Volume: 1,000, 2018 In dical 1000 mL Start date: [place] 07/03/19 17:45:00 RAILROAD CAR CHECKER, Stop date: 07/03/19 18:45:00 RAILROAD [employer] CHECKER Minocycline 100 mg, 1 cap, No Longer [place] Route: PO, Drug Active 2019 Medical form: CAP, Q12H, [place] Dosing Weight 81, kg, Start date: 07/01/19 21:00:00 RAILROAD CAR CHECKER, Duration: 7 day, Stop date: 07/08/19 9:00:00 RAILROAD CAR CHECKER, 0 Acetaminophen Notes: Do not No Longer [place] exceed 4 gm/day. Active 2019 Medical (Same as: [place] Tylenol) POLYETHYLENE Notes: Dissolve No Longer H [place] GLYCOL 3350 in 8 oz of water Active 2019 Med ical or juice. (Same Center as: Miralax) remove patch Notes: Remove No Longer [place] old patch before Active 2018 Medical application of [place] new patch. remove patch 1 patch, Route: No Longer H [place] MISC, Q24H, Drug Active [facility] Start date: 07/01/19 2:00:00 RAILROAD CAR CHECKER, Duration: 30 day, Stop date: 07/30/19 2:00:00 RAILROAD CAR CHECKER, 0 Divalproex Sodium Notes: (Same as: No Longer [place] 125 MG Enteric Depakote Active 2019 Medical Coated Capsule Sprinkles) Do Rk ter not confuse with 250mg capsule or tablets Do not crush. May sprinkle on food. sennosides, [facility] Notes: (Same as: No Longer 07/01 [facility] Senokot) Active 2019 [facility] atorvastatin Notes: (Same as: No Longer [facility] Lipitor) Active 2019 [facility] Ascorbic Acid Notes: (Same as: No Longer [facility] Vitamin C) Active 2019 [facility] Memantine Notes: (Same As: No Longer [facility] Namenda) Active 2019 Medical Center Guaifenesin Notes: (Same as: No Longer [facility] Robitussin) Active 2019 Medical Center Melatonin Notes: (Same as: No Longer [facility] Melatonin) Active 2019 Medical Center Milk of Magnesia 400 mg/ 5 mL, No Longer [place] PO, Daily, PRN Active 2019 Medical constipation, 0 Center Refill(s) carvedilol 3.125 3.125 mg = 1 No Longer [place] mg oral tablet tab, PO, Q12H, # Active 2019 Medical 60 tab, 0 Center Refill(s) Divalproex Sodium 250 mg = 2 cap, Active [place] 125 MG Enteric PO, Bedtime, # 2019 Me dical Coated Capsule 90 cap, 0 Center Refill(s) Pro-Stat Liquid Pro-Stat Liquid, No Longer 06/30 [place] 1 dose, PO, Active 2019 Medical Daily, 1 dose by Center mouth, Refill(s) 0 Li-Tussin 100 mg = 5 mL, [place] Expectorant 100 PO, Q6H, PRN 2019 Med ical mg/5 mL oral Cough, 0 Center liquid Refill(s) Novolin N 20 unit, SUB-Q, No Longer [place] Daily, 0 Active 2019 Medical Refill(s) Center Ascorbic Acid 500 mg, PO, BID, Active [facility] 0 Refill(s) 2019 Medical Center atorvastatin 40 40 mg = 1 tab, Active H [place] mg oral tablet PO, Bedtime, # 2019 Me dical 90 tab, 1 Center Refill(s) memantine 10 mg 10 mg = 1 tab, Active H [place] oral tablet PO, BID, # 60 2019 Medica l tab, 0 Refill(s) Center melatonin 3 mg 3 mg = 1 tab, Active [place] oral tablet PO, Bedtime, PRN 2019 Med ical for insomnia, # Center 60 tab, 0 Refill(s) sertraline 50 mg 50 mg = 1 tab, Active [place] oral tablet PO, Bedtime, # 2019 Medic al 30 tab, 0 Center Refill(s) Docusate Sodium 100 mg = 1 cap, Active [place] 100 MG Oral PO, BID, # 60 2019 Medica l Capsule cap, 0 Refill(s) Center Promethazine 25 mg = 1 tab, No Longer [place] Hydrochloride 25 PO, Q6H, PRN Active 2019 In dical MG Oral Tablet Nausea/Vomiting, Center # 12 tab, 0 Refill(s) Albuterol 0.83 2.49 mg = 3 mL, No Longer [place] MG/ML Inhalant NEB, Q12H, PRN Active 2019 In dical Solution as needed for Center shortness of breath, # 120 ea, 3 Refill(s) Acetaminophen 100.4 F, 0 No Longer [place] Refill(s) Active 2019 [facility] Lidocaine Notes: Apply [place] Longer [place] Hydrochloride only once for up Active 2019 edical 0.05 MG/MG to 12 hours in a Cent er Transdermal Patch 24-hour period [Lidoderm] (12 hours on and 12 hours off). (Same as: Lidoderm) Acetaminophen Notes: Max [place] Longer [place] acetaminophen Active 2019 Medical 4000 mg/day (4 Center gm/day). (Same as: Tylenol Extra Strength) Oxycodone Notes: (Same as: No Longer [place] Hydrochloride 1 'Roxicodone) Active 2019 Med ical MG/ML Oral Center Solution Morphine Notes: (Same No Longer [place] as:MORPhine Active 2019 Medical Sulfate) Center Ondansetron Notes: (Same as: No Longer [facility] Zofran) Active 2019 Medical MEDICATION WASTE Center Product Size: 4 mg Product Wasted: _0__ mg Docusate Notes: (Same as: No Longer [place] Colace) (Do Not Active 2019 Medical Crush) Center carvedilol Notes: Give with No Longer [place] food. (Same As: Active 2019 Medical Coreg) Center Eliquis Notes: Same as: No Longer Sergio as Eliquis Active 2019 Medical Center Divalproex Sodium Notes: (Same as: Inactive [place] 125 MG Enteric Depakote 2019 Medical Coated Capsule Sprinkles) Do Rk ter not confuse with 250mg capsule or tablets Do not crush. May sprinkle on food. Furosemide 20 MG Notes: (Same as: No Longer [place] Oral Tablet Lasix) May Active 2018 Medical cause GI upset. Center Give with food or milk. Memantine Notes: (Same As: Inactive [place] Namenda) 2019 [facility] 24 HR Notes: Same as No Longer [place] rivastigmine Exelon "Remove Active 2019 Medi [place] 0.554 MG/HR old patch before Rk ter Transdermal Patch application of new patch" Sertraline Notes: (Same as: No Longer [place] Zoloft) Active 2019 [facility] heparin 5,000 unit, Inactive [place] Route: SUB-Q, 2019 Medical Q8H, Dosing Center Weight 81, kg, Start date: 06/30/19 8:00:00 RAILROAD CAR CHECKER, Stop date: 07/30/19 0:00:00 RAILROAD CAR CHECKER Oxycodone Notes: (Same as: Inactive [place] Hydrochloride 1 'Roxicodone) 2019 Med ical MG/ML Oral Center Solution 24 HR = 1 patch, TOP, Active [place] rivastigmine Daily, apply to 2019 Med ical 0.554 MG/HR area that is Center Transdermal Patch clean/dry/hairle ss & free of redness/irritati on/bella/cuts, # 30 patch, 0 Refill(s) sertraline 50 mg 50 mg = 1 tab, Inactive [place] oral tablet PO, Daily, # 30 2019 [facility] tab, 0 Refill(s) [place] Furosemide 20 MG 20 mg = 1 tab, Inactive [place] Oral Tablet PO, Daily, # 30 2019 [facility] tab, 0 Refill(s) [place] carvedilol 3.125 3.125 mg = 1 Inactive H [place] mg oral tablet tab, PO, Q12H, # 2019 Medical 60 tab, 0 Center Refill(s) apixaban 5 MG 5 mg, PO, Q12H, Active [facility] Oral Tablet 0 Refill(s) 2019 Medical [Eliquis] Center Acetaminophen 300 1 tab, PO, Q12H, No Longer [place] MG / Codeine PRN Pain, # 42 Active 2019 [facility] Phosphate 30 MG tab, 0 Refill(s) [place] Oral Tablet memantine 10 mg 10 mg = 1 tab, Inactive [facility] oral tablet PO, Daily, # 30 2019 [facility] tab, 0 Refill(s) [place] atorvastatin 40 40 mg = 1 tab, Inactive [place] mg oral tablet PO, Bedtime, # 2019 In dical 30 tab, 0 Center Refill(s) 24 [place] = 1 patch, TOP, [place] rivastigmine Daily, apply to 2019 Med ical 0.554 MG/HR area that is Center Transdermal Patch clean/dry/hairle ss & free of redness/irritati on/bella/cuts, # 30 patch, 0 Refill(s) Divalproex Sodium 125 mg = 1 cap, Inactive 06/30 [place] 125 MG Enteric PO, Daily, # 90 2019 M edical Coated Capsule cap, 0 Refill(s) Center potassium = 1 tab, PO, Active [place] chloride 20 mEq Daily, # 90 tab, 2019 Medical oral powder 1 Refill(s) [place] NPH Insulin, 15 unit, SUB-Q, No Longer H [place] Human 100 UNT/ML Bedtime, # 10 Active 2019 M edical Injectable ml, 0 Refill(s) Cente r Suspension [Novolin N] Dextrose 50% 12.5 gm, 25 mL, No Longer H [place] Syringe Route: IVP, Drug Active 2019 Medical Form: INJ, Center Dosing Weight 81, kg, PRN, PRN Blood Glucose Results, Start date: 06/30/19 5:11:00 RAILROAD CAR CHECKER, Duration: 30 day, Stop date: 07/30/19 5:10:00 RAILROAD CAR CHECKER, 0 Glucagon 1 mg, Route: IM, No Longer [place] Drug form: Active 2019 Medical PDR/INJ, PRN, Center Dosing Weight 81, kg, PRN Blood Glucose Results, Start date: 06/30/19 5:11:00 RAILROAD CAR CHECKER, Duration: 30 day, Stop date: 07/30/19 5:10:00 RAILROAD CAR CHECKER, 0 Insulin Lispro Notes: (Same as: No Longer [place] Humalog) Roll in Active 2019 Medical palms of hands Center gently; Do not shake vigorously. WASTE: F/P - Black; E - Municipal Trash Bin Stable for 28 days at room temperature. Expires in days from Da te Oxycodone Notes: (Same as: Inactive [place] Hydrochloride 1 'Roxicodone) 2019 Med ical MG/ML Oral Center Solution tizanidine Notes: (Same As: Inactive [place] Zanaflex) 2019 Medical Center Dextrose 50% 12.5 gm, 25 mL, No Longer [facility] Syringe Route: IVP, Drug Active 2019 Medical Form: INJ, Center Dosing Weight 81, kg, PRN, PRN Blood Glucose Results, Start date: 06/30/19 5:07:00 RAILROAD CAR CHECKER, Duration: 30 day, Stop date: 07/30/19 5:06:00 RAILROAD CAR CHECKER, 0 Glucagon 1 mg, Route: IM, No Longer [place] Drug form: Active 2019 Medical PDR/INJ, PRN, Center Dosing Weight 81, kg, PRN Blood Glucose Results, Start date: 06/30/19 5:07:00 RAILROAD CAR CHECKER, Duration: 30 day, Stop date: 07/30/19 5:06:00 RAILROAD CAR CHECKER, 0 Ondansetron Notes: (Same as: Inactive [place] Zofran) 2019 Medical MEDICATION WASTE Center Product Size: 4 mg Product Wasted: ___ mg Acetaminophen Notes: Do not Inactive [place] exceed 4 gm/day. 2019 Medical (Same as: Center Tylenol) Morphine 4 mg, Route: Inactive [facility] IVP, ONCE, 2019 Medical Dosing Weight Center 81, kg, Priority: STAT, Start date: 06/30/19 4:58:00 RAILROAD CAR CHECKER, Stop date: 06/30/19 4:58:00 RAILROAD CAR CHECKER Iohexol 100 mL, Route: Inactive [facility] IVP, Drug Form: 2019 Medical SOLN, Dosing Center Weight 81, kg, ONCALL, STAT, Start date: 06/29/19 21:34:00 RAILROAD CAR CHECKER, Duration: 1 doses or times, Dose = 2.2ml/kg, Max dose = 100ml -- "To be infused by Radiology Staff ONLY" Morphine Notes: (Same Inactive [facility] as:MORPhine 2019 [facility] Sulfate) Center Saline Flush 0.9% Notes: (Same as: No Longer [facility] BD Posiflush) Active [address] [place] [address] insulin isophane 10 unit, SUB-Q, Active [facility] human recombinant [id number], 0 2014 Med ical 100 units/mL Refill(s) [place] subcutaneous injection Metformin 500 mg = 1 tab, Active Sergio as hydrochloride 500 PO, BID, 0 2014 Med ical MG Oral Tablet Refill(s) [place] lansoprazole 30 [place], QPM, 0 [place] mg oral tablet, Refill(s) 2014 Medica l disintegrating [place] docusate sodium 100 mg = 10 mL, Active [facility] 150 mg/15 mL oral PO, Q12H, 0 2014 Me dical liquid Refill(s) [place] carvedilol 12.5 12.5 mg = 1 tab, Active [facility] mg oral tablet PO, Q12H, 0 2014 Medic al Refill(s) [place] Aspirin 325 mg = 1 tab, Active [facility] [place], Daily, 0 2015 Medical Refill(s) Center Insulin, Aspart, Notes: Roll in No Longer [facility] Human palms of hands Active 2015 Medical gently; Do not Center shake vigorously. (Same as: NovoLOG) "single patient use only" Stable for 28 days at room temperature. Expires in days from Da te Glucagon 1 mg, Route: IM, No Longer [place] Drug form: Active 2014 Medical PDR/INJ, PRN, Center Dosing Weight 145.455, kg, PRN Blood Glucose Results, Start date: 02/14/15 21:19:00, Duration: 30 day, Stop date: 03/16/15 21:18:00 Dextrose 50% 25 gm, 50 mL, No Longer [place] Syringe Route: IVP, Drug Active 2014 Medical Form: INJ, Center Dosing Weight 145.455, kg, PRN, PRN Blood Glucose Results, Start date: 02/14/15 21:19:00, Duration: 30 day, Stop date: 03/16/15 21:18:00 Metformin Notes: (Same as: No Longer [place] hydrochloride 500 Glucophage) Active 2014 In dical MG Oral Tablet Take with meal Ce nter Sodium Chloride IVPB, 250 ml/hr, No Longer 02/14 [place] 0.45% IV Q12H, Start Active 2014 Medical date: 02/14/15 Center 11:00:00, Duration: 30, 500 ml 1/2 NS 500 mL 500 mL, Rate: Inactive [place] 250 ml/hr, 2014 Medical Infuse over: 2 Center hr, Route: IV, Dosing Weight 145.455 kg, Total Volume: 500, Start date: 02/14/15 10:28:00, Duration: 30 day, Stop date: 03/16/15 10:27:00 [place] Notes: Give with No Longer [place] food. (Same As: Active 2014 Medical Coreg) Center Prinivil Notes: (Same as: No Longer [place] Prinivil, Active 2014 Medical Zestril) Center Insulin, Aspart, Notes: Roll in No Longer [place] Human palms of hands Active 2014 Medical gently; Do not Center shake vigorously. (Same as: NovoLOG) "single patient use only" Stable for 28 days at room temperature. Expires in days from Da te insulin 5 unit, 0.05 mL, Inactive [place] as isophane-NPH Route: SUB-Q, 2015 Medic al Drug form: INJ, Center ONCE, Dosing Weight 145.455, kg, Priority: NOW, Start date: 02/12/15 18:21:00, Stop date: 02/12/15 18:21:00 Novolin N 10 unit, 0.1 mL, No Longer [place] Route: SUB-Q, Active 2014 Medical Drug form: INJ, Center [id number], Dosing Weight 145.455, kg, Start date: 02/12/15 18:00:00, Duration: 30 day, Stop date: 03/14/15 6:00:00 Calmoseptine Notes: (Same as: No Longer [place] Calmoseptine) Active 2014 [facility] Levaquin 500 mg, 1 tab, No Longer S[place] as Route: PO, Drug Active 2014 Medical form: TAB, Center [id number], Dosing Weight 145.455, kg, Priority: NOW, Start date: 02/10/15 7:25:00, Duration: 5 day, Stop date: 02/14/15 7:25:00 metoprolol Notes: (Same as: No Longer [place] tartrate Lopressor) Active 2014 [facility] Plavix Notes: (Same As: [place] Plavix) Active 2014 [facility] Keflex Notes: Take on [place] Longer [place] empty stomach. Active 2014 Medical (Same As: Center Keflex) Lisinopril Notes: (Same as: No Longer [facility] Prinivil, Active 2014 [facility] Zestril) Center metoprolol Notes: (Same as: Inactive [facility] tartrate Lopressor) 2015 [facility] Aspirin Notes: Take with No Longer [place] food. Active 2014 [facility] Lasix Notes: (Same as: Inactive [place] Lasix) 2014 Medical MEDICATION WASTE Center Product Size: 40 mg Product Wasted: ___ mg Prevacid Notes: Take 1 [place] Longer [place] hour before or 2 Active 2014 Medical hours after Center meal; Expires in 14 days. Shake well before use. (Same as:Prevacid) Compounded Product - formulation not commercially available Albuterol 0.83 Notes: SEE RT No Longer 02/08/ M H [place] MG/ML Inhalant DOCUMENTATION Active 2014 Med ical Solution (Same as: Center Proventil) aspirin Notes: No Longer [place] Refrigerate. Active 2014 Medical Center Ketorolac Notes: (Same [place] Longer [place] as:Toradol) Active 2014 [facility] Center Docusate Notes: (Same as: No Longer [place] Colace) Active 2014 [facility] Center Furosemide 20 MG 20 mg = 1 tab, Active [place] Oral Tablet PO, TID, # 90 2014 Medica l [Lasix] tab, 0 Refill(s) Center lisinopril 10 mg 10 mg = 1 tab, Active [place] oral tablet PO, Daily, # 30 2015 Medi [place] tab, 0 Refill(s) Center metoprolol 50 mg = 1 tab, No Longer [place] tartrate 50 mg PO, BID, # 60 Active 2014 Med ical oral tablet tab, 0 Refill(s) Rk ter Advair Diskus 250 1 puff, No Longer [place] mcg-50 mcg INHALATION, BID, Active 2014 [facility] marilou inhalation powder # 60 puff, 0 C enter Refill(s) NPH Insulin, 36 unit, SUB-Q, No Longer 02/07/ H [place] Human 100 UNT/ML Daily, # 10 ml, Active 2014 Medical Injectable 0 Refill(s) Center Suspension [Novolin N] clopidogrel 75 MG 75 mg = 1 tab, Active [place] Oral Tablet PO, Daily, # 90 2014 Medi [place]ilou [Plavix] tab, 0 Refill(s) Center isosorbide 30 mg = 1 tab, No Longer [place] mononitrate 30 mg PO, BID, # 90 Active 2014 Medical oral tablet, tab, 0 Refill(s) Ce nter extended release Potassium 20 mEq = 1 tab, No Longer [place] Chloride 20 MEQ PO, Daily, # 30 Active 2014 Medical Extended Release tab, 3 Refill(s) Center Tablet omeprazole 40 mg 40 mg = 1 cap, No Longer [place] oral delayed PO, Daily, # 30 Active 2015 Med ical release capsule cap, 0 Refill(s) [place] atorvastatin 10 10 mg = 1 tab, Active H [place] MG Oral Tablet PO, Bedtime, # 2015 In dical [Lipitor] 90 tab, 0 Center Refill(s) Amlodipine 5 MG 5 mg = 1 tab, No Longer [place] Oral Tablet PO, Daily, # 30 Active 2015 Medi [place]il[place] [Norvasc] tab, 0 Refill(s) Cente r aspirin Notes: Inactive [facility] Refrigerate. 2015 [facility] Aspirin 300 mg, Route: Inactive [facility] [place], Drug form: 2014 Medical SUPP, Daily, Center Dosing Weight 145.455, kg, Priority: STAT, Start date: 02/07/15 11:13:00, Duration: 30 day, Stop date: 03/09/15 9:00:00 Aspirin 325 MG Notes: Take with No Longer [facility] Enteric Coated food. Active 2014 Medical Tablet Center Rocephin Notes: (Same As: No Longer [place] herzog Rocepaln). Use Active 2014 Medical with 100ml NS Center mini-bag PLUS and infuse over 30 min MEDICATION WASTE Product Size: 1000 mg Product Wasted: ___ mg Furosemide 40 MG Notes: (Same as: No Longer 01/21 [facility] [facility] Lasix) December Active 2014 Medical [Lasix] cause GI upset. Center Give with food or milk. iodixanol Special Inactive [facility] Instructions: 2015 Medical Dose = 2.2ml/kg, [place] Max dose = 100ml -- "To be infused by Radiology Staff ONLY" Ofirmev 325 mg + Notes: Infuse No Longer [facility] empty container 1 over 15 minutes Active 2014 Medical bag Do not exceed Center 4gm/day of acetaminophen MEDICATION WASTE Product Size: 1000 mg Product Wasted: ___ mg Tylenol Notes: Infuse Inactive [facility] over 15 minutes 2015 Medical Do not exceed Center 4gm/day of acetaminophen MEDICATION WASTE Product Size: 1000 mg Product Wasted: ___ mg Lipitor Notes: (Same As: No Longer [place] Lipitor) Active 2014 Medical Center Docusate Notes: (Same as: No Longer [place] Colace) Active 2014 Medical Center Labetalol 10 mg, 2 mL, [place] Route: IVP, Drug Active 2014 Medical form: INJ, Center Q15Min, Dosing Weight 145.455, kg, PRN Hypertension, Start date: 02/06/15 18:05:00, Stop date: 03/08/15 18:04:00 Hydralazine Notes: (Same as: No Longer [facility] Apresoline) Push Active 2014 Medical over 5 minutes Center Nicardipine Notes: Same as: No Longer [place] Cardene Active 2014 Medical Concentration: Center (0.2 mg /1 ml ) aspirin Notes: Inactive [facility] Refrigerate. 2015 Medical [place] Albuterol 0.833 Notes: (Same as: No Longer 02/06 [facility] MG/ML / Duoneb) Active 2014 [facility] Ipratropium [place] 0.167 MG/ML Inhalant Solution [DuoNeb] Regular Insulin, 60 units) No Longer [facility] Human 100 UNT/ML Stable for 28 Active 2014 edical Injectable days at room Center Solution temperature Expires in days from Da te Dextrose 50% 25 gm, 50 mL, No Longer [place] Syringe Route: IVP, Drug Active 2014 Medical Form: INJ, Center Dosing Weight 145.455, kg, PRN, PRN Abnormal Lab Result, Start date: 02/06/15 17:26:00, Duration: 30 day, Stop date: 03/08/15 17:25:00 Enoxaparin Notes: (Same as: No Longer [place] Lovenox) Active 2014 Medical Center Acetaminophen Notes: Do not No Longer [facility] exceed 4 gm/day. Active 2014 Medical (Same as: Center Tylenol) Labetalol 105 mmHg, Inactive [place] Priority: 2015 Medical Routine, Start Center date: 02/06/15 15:54:00, Duration: 30 day, Stop date: 03/08/15 15:53:00 Nicardipine Notes: Same as: Inactive [place] Schaefer 2014 Medical Concentration: Center (0.2 mg /1 ml ) Sodium Chloride 1,000 mL, Rate: No Longer 02/06/ [facility] 0.154 MEQ/ML 40 ml/hr, Infuse Active 2014 In dical Injectable over: 25 hr, [place] Solution Route: IV, Dosing Weight 125.455 kg, Total Volume: 1,000, Start date: 02/06/15 15:54:00, Stop date: 03/08/15 15:53:00 Allergies, Adverse Reactions, Alerts Substance Category Reaction Severity Reaction Status Date Comments S ource type Reported Demerol HCl Assertion Drug Active [facility] influenza Assertion Drug Active 1Data [place] virus allergy migrated Medical vaccine, from [facility] inactivated [facility] <sup>1</sup on 12/20/14. > Originally documented as FLU SHOT. meperidine< Assertion Drug Active Data [place] sup>2</sup> allergy migrated Med ical from [facility] [place] on 12/20/14. Originally documented as DEMEROL. traMADol<tilley Assertion Drug Active 3Data [place] p>3</sup> allergy migrated Medic al from [facility] [place] on 12/20/14. Originally documented as ULTRAM. Nausea codeine<sup Assertion Drug Active Data [place] >1</sup> allergy migrated Medica l from [facility] [place] on 10/23/15. Originally documented as CODEINE. influenza Assertion Drug Active Data [facility] [place] virus allergy migrated Medical vaccine, [facility] <sup[facility]</sup on 12/20/14. > Originally documented as FLU SHOT. traMADol<tilley Assertion Drug Active Data [place] p>4</sup> allergy migrated Medic al from [facility] [place] on 12/20/14. Originally documented as ULTRAM. Nausea Immunizations Immunization Date Given Site Status Last Comments Source Updated Hx influenza 05/22/2005 completed Result Sergio as vaccine-unspecifi Comment: Me dical ed<sup>1</sup> historical. Rk ter Migrated from OBS ; Data migrated from [facility] on 09/24/2015. Results Order Name Results Value Reference Date Interpretation Comments Erika rce Range CHEM PANEL Glucose Lvl 219 70 - 99 07/06 [facility] [address] [place] [address] CHEM PANEL BUN 22 7 - 22 07/06 [facility] [place] /[address] [place] [address] CHEM PANEL Creatinine 0.58 0.50 - 07/06 [place] Lvl 1. [facility] CHEM PANEL Sodium Lvl 141 135 - 145 07/06 [facility] CHEM PANEL Potassium Lvl 3.3 3.5 - 5.1 07/06 [place] [facility] CHEM PANEL Chloride Lvl 106 95 - 109 07/06 a s [facility] CHEM PANEL CO2 31 24 - 32 07/06 [facility] CHEM PANEL AGAP 7.3 10.0 - 07/06 20. [facility] CHEM PANEL Calcium Lvl 8.4 8.5 - 10.5 07/06 [facility] CHEM PANEL eGFR 88 07/06 Result Comment: The Medical eGFR is Center calculated using the CKD-EPI formula. In most young, healthy individuals the eGFR will be >90 mL/min/1.73m2 . The eGFR declines with age. An eGFR of 60-89 may be normal in some populations, particularly the elderly, for whom the CKD-EPI formula has not been extensively validated. Use of the eGFR is not recommended in the following populations:< br/>
Juju viduals with unstable creatinine concentration s, including patients and those with serious co-morbid conditions.<b r/>
Patie nts with extremes in muscle mass or diet.

The data above are obtained from the National Kidney Disease Education Program (NKDEP) which additionally recommends that when the eGFR is used in patients with extremes of body mass index for purposes of drug dosing, the eGFR should be multiplied by the estimated BMI. HEMATOLOGY WBC 8.4 3.7 - 10.4 07/06 [facility] HEMATOLOGY RBC 2.92 4.20 - 07/06 [place] 5.40 [facility] HEMATOLOGY Hgb 9.2 12.0 - 07/06 16.0 [facility] HEMATOLOGY Hct 27.7 36.0 - 07/06 [place] 48.0 [facility] HEMATOLOGY MCV 94.7 80.0 - 07/06 98.0 [facility] HEMATOLOGY MCH 31.6 27.0 - 07/06 [place] 31.0 [facility] HEMATOLOGY MCHC 33.3 32.0 - 07/06 [facility] [place] 36.0 [facility] HEMATOLOGY RDW 13.8 11.5 - 07/06 [facility] 14.5 [facility] HEMATOLOGY Platelet 158 133 - 450 07/06 [facility]2018 [facility] HEMATOLOGY MPV 9.4 7.4 - 10.4 07/06 [facility]2018 [facility] HEMATOLOGY Segs 65.8 45.0 - 07/06 [facility] 75.0 [facility] HEMATOLOGY Lymphocytes 19.3 20.0 - 07/06 [facility] 40.0 [facility] HEMATOLOGY Monocytes 6.8 2.0 - 12.0 07/[address] HEMATOLOGY Eosinophils 7.2 0.0 - 4.0 07/[address] HEMATOLOGY Basophils 0.9 0.0 - 1.0 07/[address] HEMATOLOGY Neutrophils # 5.5 1.5 - 8.1 07/[address] HEMATOLOGY Lymphocytes # 1.6 1.0 - 5.5 07/[address] HEMATOLOGY Monocytes # 0.6 0.0 - 0.8 07/06 [facility] [facility]2018 [facility] HEMATOLOGY Eosinophils # 0.6 0.0 - 0.5 07/[address] HEMATOLOGY Basophils # 0.1 0.0 - 0.2 07/[address] CHEM PANEL Glucose Lvl 305 70 - 99 07/[address] CHEM PANEL BUN 26 7 - 22 07/[address] CHEM PANEL Creatinine 0.86 0.50 - 07/05 [facility] Lvl 1.40 [facility] CHEM PANEL Sodium Lvl 141 135 - 145 07/[address] CHEM PANEL Potassium Lvl 4.4 3.5 - 5.1 07/[address] CHEM PANEL Chloride Lvl 108 95 - 109 07/[address] CHEM PANEL CO2 27 24 - 32 07/[address] CHEM PANEL Calcium Lvl 8.5 8.5 - 10.5 07/05 [facility] CHEM PANEL eGFR 64 07/05 [facility] Comment: The Medical eGFR is Center calculated using the CKD-EPI formula. In most young, healthy individuals the eGFR will be >90 mL/min/1.73m2 . The eGFR declines with age. An eGFR of 60-89 may be normal in some populations, particularly the elderly, for whom the CKD-EPI formula has not been extensively validated. Use of the eGFR is not recommended in the following populations:< br/>
Juju viduals with unstable creatinine concentration s, including patients and those with serious co-morbid conditions.<b r/>
Patie nts with extremes in muscle mass or diet.

The data above are obtained from the National Kidney Disease Education Program (NKDEP) which additionally recommends that when the eGFR is used in patients with extremes of body mass index for purposes of drug dosing, the eGFR should be multiplied by the estimated BMI. CHEM PANEL AGAP 10.4 10. - 07/05 [facility] 20.0 [facility] HEMATOLOGY RBC Morph Normal Normal 07/05 [facility] (07/05/19 5:55 AM) [facility] HEMATOLOGY Plt Morph Normal Normal 07/05 [facility] (07/05/19 5:55 AM) [facility] HEMATOLOGY Segs 67.1 45.0 - 07/05 [facility] 75.0 [facility] HEMATOLOGY Lymphocytes 16.3 20.0 - 07/05 [place] 40.0 [facility] HEMATOLOGY Monocytes 6.7 2.0 - 12.0 07/05 [facility] HEMATOLOGY Eosinophils 8.7 0.0 - 4.0 07/05 [facility] HEMATOLOGY Basophils 1.2 0.0 - 1.0 07/05 [facility] HEMATOLOGY Neutrophils # 5.0 1.5 - 8.1 07/05 [facility] [place] [facility] HEMATOLOGY Lymphocytes # 1.2 1.0 - 5.5 07/05 [facility] HEMATOLOGY Monocytes # 0.5 0.0 - 0.8 07/05 [facility] HEMATOLOGY Eosinophils # 0.6 0.0 - 0.5 07/05 [facility] HEMATOLOGY Basophils # 0.1 0.0 - 0.2 07/05 [facility] HEMATOLOGY WBC 7.4 3.7 - 10.4 07/05 [facility] HEMATOLOGY RBC 2.79 4.20 - 07/05 [facility] 5.40 [facility] HEMATOLOGY Hgb 8.9 12.0 - 07/05 16.0 [facility] HEMATOLOGY Hct 26.8 36.0 - 07/05 [facility] 48.0 [facility] HEMATOLOGY MCV 96.1 80.0 - 07/05 [facility] 98.0 [facility] HEMATOLOGY MCH 31.8 27.0 - 07/05 31.0 [facility] HEMATOLOGY MCHC 33.1 32.0 - 07/05 36.0 [facility] HEMATOLOGY RDW 14.0 11.5 - 07/05 [facility] 14. [facility] HEMATOLOGY Platelet 130 133 - 450 07/05 [facility] HEMATOLOGY MPV 9.9 7.4 - 10.4 07/05 [facility] CHEM PANEL Glucose Lvl 223 70 - 99 07/04 [facility] CHEM PANEL BUN 26 7 - 22 07/04 [facility] CHEM PANEL Creatinine 0.67 0.50 - 07/04 [facility] Lvl 1.40 [facility] CHEM PANEL Sodium Lvl 143 135 - 145 07/04 [facility] CHEM PANEL Potassium Lvl 4.2 3.5 - 5.1 07/04 [place] [facility] CHEM PANEL Chloride Lvl 110 95 - 109 07/04 [facility] s [facility] CHEM PANEL CO2 26 24 - 32 07/04 2018 [facility] CHEM PANEL Calcium Lvl 8.7 8.5 - 10.5 07/04 [facility] CHEM PANEL eGFR 83 07/04 Result Comment: The Medical eGFR is Center calculated using the CKD-EPI formula. In most young, healthy individuals the eGFR will be >90 mL/min/1.73m2 . The eGFR declines with age. An eGFR of 60-89 may be normal in some populations, particularly the elderly, for whom the CKD-EPI formula has not been extensively validated. Use of the eGFR is not recommended in the following populations:< br/>
Juju viduals with unstable creatinine concentration s, including patients and those with serious co-morbid conditions.<b r/>
Patie nts with extremes in muscle mass or diet.

The data above are obtained from the National Kidney Disease Education Program (NKDEP) which additionally recommends that when the eGFR is used in patients with extremes of body mass index for purposes of drug dosing, the eGFR should be multiplied by the estimated BMI. CHEM PANEL AGAP 11.2 10.0 - 11 [facility] 20.0 /2019 [facility] HEMATOLOGY WBC 9.6 3.7 - 10.4 07/04 [facility] HEMATOLOGY RBC 3.49 4.20 - 07/04 [place] 5.40 /2018 [facility] HEMATOLOGY Hgb 10.9 12.0 - 07/04 [facility] 16.0 [facility] HEMATOLOGY Hct 33.6 36.0 - 07/04 [facility] 48.0 [facility] HEMATOLOGY MCV 96.2 80.0 - 07/04 [facility] 98.0 [facility] HEMATOLOGY MCH 31.3 27.0 - 07/04 [facility] 31.0 [facility] HEMATOLOGY MCHC 32.6 32.0 - 07/04 [facility] 36.0 [facility] HEMATOLOGY RDW 13.9 11.5 - 07/04 [facility] 14.5 [facility] HEMATOLOGY Platelet 148 133 - 450 07/04 [facility] HEMATOLOGY MPV 10.0 7.4 - 10.4 07/04 [facility] HEMATOLOGY Segs 85.5 45.0 - 07/04 [facility] 75.0 [facility] HEMATOLOGY Lymphocytes 7.4 20.0 - 07/04 [facility] 40.0 [facility] HEMATOLOGY Monocytes 6.2 2.0 - 12.0 07/04 [facility]2018 [facility] HEMATOLOGY Eosinophils 0.5 0.0 - 4.0 07/04 [facility] HEMATOLOGY Basophils 0.4 0.0 - 1.0 07/04 [facility]2018 [facility] HEMATOLOGY Neutrophils # 8.2 1.5 - 8.1 07/04 [facility] [place] [facility] HEMATOLOGY Lymphocytes # 0.7 1.0 - 5.5 07/04 [facility] [place] [facility] HEMATOLOGY Monocytes # 0.6 0.0 - 0.8 07/04 [facility] [facility]2018 [facility] HEMATOLOGY PTT See Note 5 22.9 - 07/03 Result [facility] (07/03/19 4:48 PM) 35.8 /2019 Comment: [facility] Specimen Center Cloted. Notified Lexii Roy to reorder and recollect 07/03/2019 18:23 LK HEMATOLOGY PT xxxxxxx 4 12.0 - 07/03 Result [facility] (07/03/19 4:48 PM) 14. Comment: [facility] Specimen Center Cloted. Notified Lexii Roy to reorder and recollect 07/03/2019 18:23 LKN HEMATOLOGY INR 0.96 0.85 - 07/03 [place] 1. [facility] BLOOD BANK ABO/Rh AB POS 07/03 [place] RESULTS /2018 [facility] BLOOD BANK Antibody Scrn Negative 07/03 [facility] as RESULTS (07/03/19 6:29 AM) /[address] [facility] HEMATOLOGY Eosinophils # 0.6 0.0 - 0.5 07/03 [facility] [place] [facility] HEMATOLOGY Basophils # 0.1 0.0 - 0.2 07/03 [place] [facility] CHEM PANEL Phosphorus 3.3 2.5 - 4.5 06/30 [facility] CHEM PANEL Magnesium Lvl 1.5 1.8 - 2.4 06/30 [facility] [place] [facility] HEMATOLOGY PTT 34.1 22.9 - 06/30 [place] 35.8 [facility] HEMATOLOGY PT 16.0 12.0 - 06/30 [place] 14.7 [facility] HEMATOLOGY INR 1.31 0.85 - 06/30 [place] 1. [facility] URINE AND UA Color Yellow Yellow 06/30 [facility] STOOL *NA* /2018 [facility] (06/30/19 6:57 AM) [place] URINE AND UA Turbidity Slight Clear 06/30 [facility] STOOL *ABN* [facility] (06/30/19 6:57 AM) [place] URINE AND UA Spec Grav 1.060 <=1.030 06/30 [facility] STOOL [facility] URINE AND UA pH 5.0 5.0 - 8.0 06/30 [facility] STOOL [facility] URINE AND UA Protein Negative Negative 06/30 [facility] STOOL (06/30/19 6:57 AM) /2018 [facility] URINE AND UA Glucose Negative Negative 06/30 [facility] STOOL *NA* /2018 [facility] (06/30/19 6:57 AM) [place] URINE AND UA Ketones Trace Negative 06/30 [facility] STOOL *ABN* /2018 [facility] (06/30/19 6:57 AM) [place] URINE AND UA Bili Negative Negative 06/30 [facility] STOOL *NA* /2018 [facility] (06/30/19 6:57 AM) [place] URINE AND UA Blood Negative Negative 06/30 [facility] (06/30/19 6:57 AM) [facility] URINE AND UA <1.0 0.1 - 1.0 06/30 [facility] Urobilinogen /2018 [facility] URINE AND UA Nitrite Positive Negative 06/30 [facility] *ABN* [facility] (06/30/19 6:57 AM) [place] URINE AND UA Leuk Est Small Negative 06/30 [facility] *ABN* [facility] (06/30/19 6:57 AM) [place] URINE AND Micro? Performed 06/30 [facility] (06/30/19 6:57 AM) [facility] URINE AND UA Sq Epi Occasional Few /LPF 06/30 [place] STOOL /LPF [facility] URINE AND UA WBC 20 0 - 5 06/30 [place] STOOL [facility] URINE AND UA RBC 2 0 - 2 06/30 [facility] STOOL [facility] URINE AND UA Bacteria Occasional None Seen 06/[place] STOOL /HPF /HPF [facility] URINE AND UA Mucus Few /LPF None Seen 06/30 [place] STOOL /LPF [facility] HEMATOLOGY ACT (TEG) 105 86 - 118 06/30 [place] Rapid [facility] HEMATOLOGY [place] 0.5 06/30 [place] Rapid [facility] HEMATOLOGY R-time Rapid 0.6 0.4 - 0.7 06/30 [place] as [facility] HEMATOLOGY K-time Rapid 1.2 0.6 - 2.3 06/30 [place] [facility] HEMATOLOGY Angle Rapid 76 64 - 80 06/30 [place] [facility] HEMATOLOGY Max Amplitude 64 52 - 71 06/30 [place] [facility] HEMATOLOGY G-value Rapid 8.7 5.0 - 11.6 06/30 [place] [facility] HEMATOLOGY Estimated % 0.0 0.0 - 7.5 06/30 [place] [facility] CHEM PANEL Lactic Acid 1.5 0.5 - 2.2 06/30 [facility] HEMATOLOGY PT 14.7 12.0 - 06/30 [facility] 14.7 [facility] HEMATOLOGY INR 1.17 0.85 - 06/30 [facility] 1.17 [facility] HEMATOLOGY PTT 36.2 22.9 - 06/30 [facility] 35.8 /2018 [facility] ELECTROLYTE AGAP 13.0 10.0 - 02/15 [facility] S 20.0 [facility] ELECTROLYTE eGFR 55 02/15 <sup>1</sup>R [facility] Medical Comment: The Center eGFR is calculated using the CKD-EPI formula. In most young, healthy individuals the eGFR will be >90 mL/min/1.73m2 . The eGFR declines with age. An eGFR of 60-89 may be normal in some populations, particularly the elderly, for whom the CKD-EPI formula has not been extensively validated. Use of the eGFR is not recommended in the following populations:& lt;br/>
I ndividuals with unstable creatinine concentration s, including patients and those with serious co-morbid conditions.<b r/>
Patie nts with extremes in muscle mass or diet.

The data above are obtained from the National Kidney Disease Education Program (NKDEP) which additionally recommends that when the eGFR is used in patients with extremes of body mass index for purposes of drug dosing, the eGFR should be multiplied by the estimated BMI. ELECTROLYTE Glucose Lvl 161 70 - 99 02/15 <sup>4</sup>I [facility] nterpretive Medical Data: Adult Center reference range values reflect the clinical guidelines
of the [place] [employer]. ELECTROLYTE BUN 16 7 - 22 02/15 [facility] ELECTROLYTE Calcium Lvl 8.8 8.5 - 10.5 02/15 [place] [facility] ELECTROLYTE Chloride Lvl 106 95 - 109 02/15 [facility] as [facility] ELECTROLYTE CO2 29 24 - 32 02/15 [facility] /2014 [facility] ELECTROLYTE Sodium Lvl 144 135 - 145 02/15 [place] [facility] ELECTROLYTE Potassium Lvl 4.0 3.5 - 5.1 02/15 [place] [facility] ELECTROLYTE Creatinine 1.0 0.5 - 1.4 02/15 [facility] HEMATOLOGY MPV 10.1 7.4 - 10.4 02/15 [facility] HEMATOLOGY Platelet 269 133 - 450 02/15 [facility] HEMATOLOGY MCV 94.7 80.0 - 02/15 98.0 [facility] HEMATOLOGY MCH 30.3 27.0 - 02/15 [place] 31.0 /2014 [facility] HEMATOLOGY MCHC 32.0 32.0 - 02/15 36.0 [facility] HEMATOLOGY RDW 13.7 11.5 - 02/15 [facility] 14.5 /2014 [facility] HEMATOLOGY RBC 3.86 4.20 - 02/15 [place] 5.40 /2014 [facility] HEMATOLOGY Hgb 11.7 12.0 - 02/15 [place] 16.0 [facility] HEMATOLOGY WBC 8.3 3.7 - 10.4 02/15 [facility] HEMATOLOGY Hct 36.5 36.0 - 02/15 [facility] 48.0 [facility] CHEM PANEL eGFR 49 02/13 <sup>2</sup>R [facility] Medical Comment: The Center eGFR is calculated using the CKD-EPI formula. In most young, healthy individuals the eGFR will be >90 mL/min/1.73m2 . The eGFR declines with age. An eGFR of 60-89 may be normal in some populations, particularly the elderly, for whom the CKD-EPI formula has not been extensively validated. Use of the eGFR is not recommended in the following populations:& lt;br/>
I ndividuals with unstable creatinine concentration s, including patients and those with serious co-morbid conditions.<b r/>
Patie nts with extremes in muscle mass or diet.

The data above are obtained from the National Kidney Disease Education Program (NKDEP) which additionally recommends that when the eGFR is used in patients with extremes of body mass index for purposes of drug dosing, the eGFR should be multiplied by the estimated BMI. CHEM PANEL Albumin Lvl 2.9 3.5 - 5.0 02/13 [facility] CHEM PANEL Creatinine 1.1 0.5 - 1.4 02/13 [facility] l [facility] CHEM PANEL Bili Total 0.6 0.2 - 1.3 02/13 [facility] CHEM PANEL Alk Phos 67 39 - 136 02/13 [facility] CHEM PANEL AST 25 0 - 37 02/13 [facility] CHEM PANEL ALT 20 0 - 65 02/13 [facility] CHEM PANEL Calcium Lvl 9.4 8.5 - 10.5 02/13 [facility] CHEM PANEL Total Protein 6.4 6.4 - 8.4 02/13 [facility] CHEM PANEL Sodium Lvl 145 135 - 145 02/13 [facility] CHEM PANEL BUN 21 7 - 22 02/13 [facility] CHEM PANEL CO2 30 24 - 32 02/13 [facility] CHEM PANEL Chloride Lvl 107 95 - 109 02/13 [facility] CHEM PANEL Potassium Lvl 3.8 3.5 - 5.1 02/13 [facility] CHEM PANEL Glucose Lvl 171 70 - 99 02/13 <sup>5</sup>I nterpretive Medical Data: Adult Center reference range values reflect the clinical guidelines
of the [place] [employer]. CHEM PANEL B/C Ratio 19 6 - 25 02/13 [facility] CHEM PANEL AGAP 11.8 10.0 - 02/13 20. [facility] CHEM PANEL Globulin 3.5 2.0 - 4.0 02/13 [facility] CHEM PANEL A/G Ratio 0.8 0.7 - 1.6 02/13 [facility] CHEM PANEL Magnesium Lvl 2.4 1.8 - 2.4 02/13 [facility] CHEM PANEL Phosphorus 3.6 2.5 - 4.5 02/13 [facility] HEMATOLOGY Lymphocytes # 1.8 1.0 - 5.5 02/13 [facility] HEMATOLOGY Monocytes # 0.8 0.0 - 0.8 02/13 [facility] HEMATOLOGY Lymphocytes 23.4 20.0 - 02/13 [place] 40.0 [facility] HEMATOLOGY Monocytes 9.8 2.0 - 12.0 02/13 [facility] HEMATOLOGY Segs 59.0 45.0 - 02/13 [place] 75.0 [facility] HEMATOLOGY Eosinophils # 0.5 0.0 - 0.5 02/13 [facility] HEMATOLOGY Basophils # 0.1 0.0 - 0.2 02/13 s [facility] HEMATOLOGY Eosinophils 6.6 0.0 - 4.0 02/13 [facility] HEMATOLOGY Basophils 1.2 0.0 - 1.0 02/13 [facility] HEMATOLOGY Segs-Bands # 4.5 1.5 - 8.1 02/13 [facility] HEMATOLOGY PT 14.2 12.0 - 02/13 [place] 14.7 /2014 [facility] HEMATOLOGY INR 1.09 0.85 - 02/13 <sup>8</sup>I s 1.17 nterpretive Medical Data: Center RECOMMENDED RANGES FOR PROTIME INR:
2.0-3.0 for most medical and surgical thromboemboli c states.
2.5-3.5 for artificial heart valves and recurrent embolism.<br/ >
INR SHOULD BE USED ONLY FOR PATIENTS ON STABLE ANTICOAGULANT THERAPY. HEMATOLOGY Hgb 11.6 12.0 - 02/13 16.0 [facility] HEMATOLOGY Hct 35.9 36.0 - 02/13 48.0 [facility] HEMATOLOGY MCV 94.9 80.0 - 02/13 98.0 [facility] HEMATOLOGY MCH 30.6 27.0 - 02/13 31.0 [facility] HEMATOLOGY MCHC 32.2 32.0 - 02/13 36.0 [facility] HEMATOLOGY RDW 13.5 11.5 - 02/13 14.5 [facility] HEMATOLOGY Platelet 253 133 - 450 02/13 [facility] HEMATOLOGY MPV 9.9 7.4 - 10.4 02/13 [facility] HEMATOLOGY WBC 7.6 3.7 - 10.4 02/13 [facility] HEMATOLOGY RBC 3.79 4.20 - 02/13 5.40 /2014 [facility] CHEM PANEL Magnesium Lvl 2.4 1.8 - 2.4 02/12 [facility] CHEM PANEL A/G Ratio 0.8 0.7 - 1.6 02/12 [facility] CHEM PANEL Globulin 3.7 2.0 - 4.0 02/12 [facility] CHEM PANEL B/C Ratio 19 6 - 25 02/12 [facility] CHEM PANEL AGAP 9.6 10.0 - 02/12 [facility] 20.0 [facility] CHEM PANEL eGFR 44 02/12 <sup>3</sup>R [facility] Comment: The Center eGFR is calculated using the CKD-EPI formula. In most young, healthy individuals the eGFR will be >90 mL/min/1.73m2 . The eGFR declines with age. An eGFR of 60-89 may be normal in some populations, particularly the elderly, for whom the CKD-EPI formula has not been extensively validated. Use of the eGFR is not recommended in the following populations:& lt;br/>
I ndividuals with unstable creatinine concentration s, including patients and those with serious co-morbid conditions.<b r/>
Patie nts with extremes in muscle mass or diet.

The data above are obtained from the National Kidney Disease Education Program (NKDEP) which additionally recommends that when the eGFR is used in patients with extremes of body mass index for purposes of drug dosing, the eGFR should be multiplied by the estimated BMI. CHEM PANEL Alk Phos 70 39 - 136 02/12 [facility] CHEM PANEL Calcium Lvl 9.2 8.5 - 10.5 02/12 [facility] CHEM PANEL Bili Total 0.6 0.2 - 1.3 02/12 2014 [facility] CHEM PANEL ALT 14 0 - 65 02/12 [facility] CHEM PANEL AST 14 0 - 37 02/12 [facility] CHEM PANEL Total Protein 6.7 6.4 - 8.4 02/12 [facility] CHEM PANEL Albumin Lvl 3.0 3.5 - 5.0 02/12 [facility] CHEM PANEL CO2 32 24 - 32 02/12 [facility] CHEM PANEL Potassium Lvl 3.6 3.5 - 5.1 02/12 [facility] CHEM PANEL Chloride Lvl 106 95 - 109 02/12 [facility] CHEM PANEL Creatinine 1.2 0.5 - 1.4 02/12 [facility] Lvl [facility] CHEM PANEL Sodium Lvl 144 135 - 145 02/12 [facility] CHEM PANEL BUN 23 7 - 22 02/12 [facility] CHEM PANEL Glucose Lvl 173 70 - 99 02/12 <sup>6</sup>I nterpretive Medical Data: Adult Center reference range values reflect the clinical guidelines
of the [employer]. CHEM PANEL Phosphorus 3.1 2.5 - 4.5 02/12 [facility] HEMATOLOGY Eosinophils # 0.5 0.0 - 0.5 02/12 [facility] HEMATOLOGY Basophils # 0.1 0.0 - 0.2 02/12 [facility] HEMATOLOGY Lymphocytes # 1.7 1.0 - 5.5 02/12 [facility] HEMATOLOGY Monocytes # 0.7 0.0 - 0.8 02/12 [facility] HEMATOLOGY Lymphocytes 21.0 20.0 - 02/12 [place] 40.0 [facility] HEMATOLOGY Monocytes 9.3 2.0 - 12.0 02/12 [facility] HEMATOLOGY Segs 62.3 45.0 - 02/12 75.0 [facility] HEMATOLOGY Segs-Bands # 5.0 1.5 - 8.1 02/12 [facility] HEMATOLOGY Eosinophils 6.1 0.0 - 4.0 02/12 [facility] HEMATOLOGY Basophils 1.3 0.0 - 1.0 02/12 [facility] HEMATOLOGY Hct 37.2 36.0 - 02/12 [place] 48.0 [facility] HEMATOLOGY Hgb 12.1 12.0 - 02/12 16.0 [facility] HEMATOLOGY MCV 94.2 80.0 - 02/12 98.0 [facility] HEMATOLOGY MPV 10.1 7.4 - 10.4 02/12 [facility] HEMATOLOGY Platelet 250 133 - 450 02/12 [facility] HEMATOLOGY MCHC 32.6 32.0 - 02/12 36.0 [facility] HEMATOLOGY RDW 13.6 11.5 - 02/12 [place] 14.5 [facility] HEMATOLOGY MCH 30.7 27.0 - 02/12 31.0 [facility] HEMATOLOGY RBC 3.95 4.20 - 02/12 [facility] 5.40 /2014 [facility] HEMATOLOGY WBC 8.0 3.7 - 10.4 02/12 [facility] HEMATOLOGY PT 13.3 12.0 - 02/12 14.7 [facility] HEMATOLOGY INR 1.01 0.85 - 02/12 <sup>9</sup>I [facility] 09.08 nterpretive Medical Data: Center RECOMMENDED RANGES FOR PROTIME INR:
2.0-3.0 for most medical and surgical thromboemboli c states.
2.5-3.5 for artificial heart valves and recurrent embolism.<br/ >
INR SHOULD BE USED ONLY FOR PATIENTS ON STABLE ANTICOAGULANT THERAPY. CHEM PANEL Magnesium Lvl 2.4 1.8 - 2.4 02/11 [facility] CHEM PANEL Phosphorus 3.1 2.5 - 4.5 02/11 [facility] HEMATOLOGY INR 1.08 0.85 - 02/11 <sup>10</sup> [facility] 09.08 Interpretive Medical Data: Center RECOMMENDED RANGES FOR PROTIME INR:
2.0-3.0 for most medical and surgical thromboemboli c states.
2.5-3.5 for artificial heart valves and recurrent embolism.<br/ >
INR SHOULD BE USED ONLY FOR PATIENTS ON STABLE ANTICOAGULANT THERAPY. HEMATOLOGY PT 14.1 12.0 - 02/11 14. [facility] HEMATOLOGY Eosinophils # 0.5 0.0 - 0.5 02/11 [facility] HEMATOLOGY Basophils # 0.1 0.0 - 0.2 02/11 [facility] HEMATOLOGY Monocytes # 0.7 0.0 - 0.8 02/11 [facility] HEMATOLOGY Segs-Bands # 5.2 1.5 - 8.1 02/11 [facility] HEMATOLOGY Eosinophils 6.5 0.0 - 4.0 02/11 [facility] HEMATOLOGY Lymphocytes # 1.4 1.0 - 5.5 02/11 [facility] HEMATOLOGY Basophils 1.4 0.0 - 1.0 02/11 /2014 [facility] HEMATOLOGY Monocytes 8.8 2.0 - 12.0 02/11 [facility] HEMATOLOGY Lymphocytes 17.4 20.0 - 02/11 [facility] 40.0 /2014 [facility] HEMATOLOGY Segs 65.9 45.0 - 02/11 [facility] 75.0 /2014 [facility] THYROID TSH 2.000 0.360 - 02/09 [facility] PANEL 3.740 /2014 [facility] CARDIAC BNP 196 <=100 02/07 <sup>7</sup>I [facility] ENZYMES pg/mL /2014 nterpretive Medical Data: Center Elevated results are in line with increasing severity of
con gestive heart failure. Minor elevations between 100 and 300
may be seen with Myocardial Ischemia, Sodium retaining drugs,
an d compensated/t reated heart failure. URINE AND UA <=1.0 0.1 - 1.0 02/06 [facility] Urobilinogen mg/dL /2014 [facility] URINE AND UA Hyal Cast 7 0 - 2 02/06 [facility] /2014 [facility] URINE AND UA Mucus Few /LPF None Seen 02/06 [facility] /LPF /2014 [facility] URINE AND UA Bacteria Occasional None Seen 02/06 [place] ST[place]OL /HPF /HPF /2014 [facility] URINE AND UA RBC 1 0 - 2 02/06 [facility] /2014 [facility] URINE AND UA WBC 12 0 - 5 02/06 [facility] /[address] [place] [address] URINE AND UA Sq Epi Occasional Few /LPF 02/06 [facility] /LPF /2014 [facility] URINE AND UA Leuk Est Small Negative 02/06 [facility] STOOL *ABN* /2014 [facility] (02/06/15 4:34 PM) [place] URINE AND UA Nitrite Negative Negative 02/06 [facility] (02/06/15 4:34 PM) /2014 [facility] URINE AND UA Blood Negative Negative 02/06 [facility] (02/06/15 4:34 PM) /2014 [facility] [place] URINE AND UA Bili Negative Negative 02/06 [facility] STOOL *NA* /2014 [facility] (02/06/15 4:34 PM) Center URINE AND UA Ketones 10 mg/dL Negative 02/06 [facility] STOOL mg/dL /2014 [facility] URINE AND UA Glucose Negative Negative 02/06 [facility] STOOL mg/dL mg/dL [facility] URINE AND UA Protein 20 mg/dL Negative 02/06 [facility] STOOL mg/dL [facility] URINE AND UA pH 5.0 5.0 - 8.0 02/06 [facility] STOOL [facility] URINE AND UA Spec Grav 1.016 <=1.030 02/06 [facility] STOOL [facility] URINE AND UA Turbidity Clear Clear 02/06 [facility] STOOL (02/06/15 4:34 PM) /2014 [facility] [place] URINE AND UA Color Yellow Yellow 02/06 [facility] *NA* /2014 Medical (02/06/15 4:34 PM) [place] HEMATOLOGY PTT 32.0 22.9 - 02/06 <sup>11</sup> [facility] Data: Heparin Center Therapeutic Range: 57 - 92 Seconds LIPIDS CHD Risk 1.75 3.90 - 02/06 [facility] 5.80 [facility] LIPIDS VLDL 16 02/06 [facility] LIPIDS LDL 31 <=99 mg/dL 02/06 [facility] (Calculated) [facility] LIPIDS Trig 81 <=149 02/06 [facility] mg/dL [facility] LIPIDS HDL 63 >=61 mg/dL 02/06 [facility] LIPIDS Chol 110 <=199 02/06 [facility] mg/dL [facility] SPECIAL Hgb A1C 5.7 <=5.6 % 02/06 [facility] CHEMISTRY [facility] Pathology Reports No Data Provided for This Section Diagnostic Reports Report Value Date Source Esophagus BA swallow EXAM: FLUOROSCOPY MODIFIED BARIUM SWALLOW 1 09/04/2018 [facility] Medical function video DX DATE: 07/05/2019 0907 hours [employer] Center INDICATION: Dysphagia. COMPARISON: None. TECHNIQUE: Oral barium contr ast of differing consistencies was given to the patient to assess swallowing mechanism. The study was performed in conjunction with speech pathology. FLUOROSCOPY TIME: 1.01 minutes FLUOROSCOPY DOSE: 9.57 mGy DISCUSSION: The patient was given barium contrast of differe nt consistencies. Thin barium: Silent aspiration. [place] barium: Silent aspiration. Honey barium: Normal. Deep penetration noted per haps of residue. Pudding barium: Normal. Vallecular residue prese nt. IMPRESSION: 1. Silent aspiration with thin and nectar gary sibley 2. Please also see detailed chart note by lakeisha cole pathology. Chest 1view DX EXAM: XR CHEST 1 VIEW 07/04/2019 [facility] edical DATE: 07/04/2019 0822 hours Cent er INDICATION: - o2 requirement COMPARISON: Chest radiographs and CT chest, abdo men pelvis on 06/29/2019. TECHNIQUE: AP chest. FINDINGS: Lines, tubes and hardware: L eft anterior chest wall subclavian approach double leads pacemaker is intact. Lungs and pleura: Interval w orsening of small to moderate left-sided pleural effusion. Trace right pleural effusion. Persistent bilateral lung reticulations and prominent bilateral perihilar pulmonary vascularity. No pneumothorax. Heart and mediastinum: The h eart size is partially obscured by adjacent opacities but not significantly changed. Bones, soft tissues: Unchanged. IMPRESSION: 1. Interval worsening of small to moderate left pleural effusion. 2. Trace right pleural effusion. 3. Persistent findings of i nterstitial pulmonary edema. Superimposed infection cannot be excluded. Femur series DX EXAM: XR FEMUR 2 VIEWS 07/03/2019 [facility] DATE: 07/03/2019 20:00 [facility] [facility] [place] INDICATION: HARDWARE PLACEMENT - ALIGNMENT COMPARISON: Right femur radiographs 06/29/2019 TECHNIQUE: AP and lateral radiographs of the fe mur Laterality: Right FINDINGS: Satisfactory alig nment of the distal femur metaphyseal fracture post internal fixation using a retrograde intramedullary nail. No hardware malalignment. Distal thigh soft tissue swe lling. Mild knee pneumarthrosis. Extensive arterial calcification. IMPRESSION: Satisfactory ap pearance of distal femur metaphyseal fracture post internal fixation. Knee 3 views DX EXAM: XR RIGHT KNEE 3 VIEWS 06/30/2019 [facility] DATE: 06/30/2019 0658 HOURS Cente r [place] SECTION: ER INDICATION: - in knee immobilizer, fall from [facility], right femur fracture. COMPARISON: Right knee radiograph 06/29/2019 at 2026 hours TECHNIQUE: 3 views of the knee FINDINGS: Again seen is the oblique moderately displaced intra-articular (patellofemoral compartment) distal femoral medial metaphyseal fracture with diastasis of fragments. Still a medial 1.5 cm distraction between the fracture fragments. Associated soft tissue swelling and knee joint e ffusion.. IMPRESSION: Unchanged alignment of right knee, which again demonstrates displaced intra- articular distal femoral metaphyseal fracture, in immobilizer brace. Knee wo contrast w/3D EXAM: CT RIGHT KNEE WITHOUT CONTRAST 06/29 [facility] CT DATE: 06/29/2019 21:34 [employer] Center INDICATION: - trauma COMPARISON: Same-day knee radiographs TECHNIQUE: Volumetric acquis ition of the right knee without contrast. Axial, sagittal and coronal reconstructions. 3-D volume rendered images are also provided for interpretation. IV contrast: None. DLP: 117 mGy-cm FINDINGS: Marked diffuse osteopenia. An obliquely oriented, mildl y displaced distal femoral metadiaphyseal fracture is visualized with intra-articular extension of fracture into the anterior aspect of the medial femoral condyle at the [place] llofemoral articulation. Mil d, quarter shaft's width posterior displacement of the distal fracture fragment. Alignment of the knee is nor mal. Diffuse soft tissue swelling of the knee is visualized along with moderate knee joint effusion. Mild degenerative changes of the knee joint are visualized with small marginal osteophytes. Note made of diffuse vascular calcifications. IMPRESSION: 1. Oblique, mildly displace d distal femoral metadiaphyseal fracture with intra-articular extension of fracture into the anterior aspect of the medial femoral condyle at the patellofemoral articulation. Associated soft tissue swelling and moderate kn ee joint effusion. 2. Marked diffuse osteopenia. 3. Vascular calcifications. Chest 1view DX EXAM: XR CHEST 1 VIEW 06/29/2019 [facility] edical DATE: 06/29/2019 20:47 [employer] Center INDICATION: - [place] COMPARISON: 02/07/2015. TECHNIQUE: AP chest. [place] SECTION: ER FINDINGS: Lines, tubes and hardware: L eft-sided 2-lead automatic implantable cardiac defibrillator. Note made of right upper quadrant surgical clips. Lungs and pleura: Mild to mo derate left pleural effusion with compressive atelectasis. Mild bilateral interstitial prominence is visualized which may represent mild interstitial pulmonary edema. Right costophrenic sulcus is clear. No pneumothorax. Heart and mediastinum: Mild cardiomegaly and tor tuous aorta. Bones, soft tissues: No acute abnormality. IMPRESSION: 1. Mild to moderate left pleural effusion with compressive atelectasis 2. Mild bilateral interstit ial prominence which may represent mild interstitial pulmonary edema 3. Mild cardiomegaly and tortuous aorta Chest/Abdomen/Pelvis EXAM: CT CHEST WITH CONTRAST 06/29/2019 [facility] IV contrast CT EXAM: CT ABDOMEN AND PELVIS WITH CONTRAST Center DATE: 06/29/2019 20:26 [employer] INDICATION: Abdominal distension - trauma COMPARISON: Same day chest radiograph TECHNIQUE: Volumetric CT of the chest, abdomen and pelvis is acquired following intravenous administration of contrast. Axial, coronal and sagittal images are provided. IV contrast: 100 mL Omnipaque 350 Oral contrast: None. DLP: 5102 mGy-cm [place] SECTION: ER FINDINGS: Lines and tubes: Left chest wall pacemaker. Lower Neck: Supraclavicular soft tissues are unr emarkable. Thoracic Aorta and Mediastin um: No mediastinal hematoma or thoracic aortic injury. Scattered atherosclerotic calcifications of the thoracic aorta. Mild cardiomegaly. No pericardial effusion. Lungs, Pleura, Diaphragm: No pulmonary contusions. Small patchy consolidation in the right apex. Moderate left pleural effusion with associated atelectasis of the left lower lobe. Trace right pleural effusion. No pneumothorax.No diaphragmatic injury. Small, 2 to 3 mm pulmonary n odules in right middle lobe are noted on series 6, image 35. Liver and biliary tree: Norm al. No injury. Minimal central intrahepatic biliary ductal dilatation is likely secondary to postcholecystectomy status. Gallbladder: Surgically removed. Pancreas: Normal. No injury. Spleen: Normal. No injury. Adrenals: Normal. No injury. Kidneys and ureters: No inju ry. Symmetric nephrograms. Subcentimeter bilateral renal cysts are too small to characterize. No hydronephrosis. Mild bilateral perinephric stranding is nonspecific. Bladder: Normal. No injury. Reproductive organs: No injury. Gastrointestinal tract: Normal. No bowel injury. Peritoneum and retroperitone um: No free intraperitoneal fluid or air. No retroperitoneal collections. Lymph nodes: Normal. Vasculature: No vascular inj ury. Scattered aortoiliac atherosclerotic calcifications. Spine/ Bones: No acute abnor mality of the spine. There is a chronic appearing superior endplate compression deformity at L4 with approximately 50% height loss. No retropulsion. Moderate degenerative brandyn nges at multiple levels with mild endplate irregularity and osteophyte formation. Mild chronic appearing superior endplate compression deformity of T4. No significant height loss or retropulsion. Diffus e osteopenia. Mild multileve l degenerative changes of the thoracal lumbar spine. Soft tissues: Normal. IMPRESSION: 1. L4 superior endplate com pression deformity with about 50% height loss and no retropulsion appears chronic. However, please correlate with focal tenderness. 2. Chronic mild superior en dplate compression deformity of T4 without significant height loss or retropulsion. 3. Moderate left pleural effusion. 4. Small patchy consolidati on in the right apex which could represent infection or aspiration. 5. Other incidental findings, as described in t he body of the report. Spine cervical wo EXAM: CT CERVICAL SPINE WITHOUT CONTRAST 06/29 [facility] contrast CT DATE: 06/29/2019 20:26 [employer] Center INDICATION: - trauma COMPARISON: None TECHNIQUE: Volumetric acqui sition of the cervical spine without contrast. Axial, sagittal and coronal reconstructions. IV contrast: None. DLP: 593.7 mGy-cm FINDINGS: The spine is imaged from the skull bas e to the level of T2. Diffuse osteopenia. Alignmen t of spine is normal. Mild degenerative changes of the spine are visualized with mild C3-4, C6-7 disc space narrowing along with small osteophytes, mild facet and uncovertebr al hypertrophy. Vertebral belle dy heights are preserved. No acute fracture or malalignment. The pre and paravertebral soft tissues are within normal limits. Again visualized is left pleural effusion. Note made of diffuse vascular calcifications. IMPRESSION: 1. No acute fracture or malalignment 2. Mild degenerative changes of the cervical sp ine 3. Left pleural effusion, partially visualized Brain wo contrast CT EXAM: CT BRAIN WITHOUT CONTRAST 06/29/2019 [facility] DATE: 06/29/2019 Center INDICATION: ' - trauma' ADDITIONAL INFORMATION: None COMPARISON: Noncontrast head CT 03/13/2015 TECHNIQUE: Noncontrast axial CT images were acquired through the brain. 5 mm axial, sagittal, and coronal images were reviewed. IV contrast: None. FINDINGS: There is no intracranial hemorrhage or extra-axi al collection. Encephalomalacia and gliosis from remote prior ischemic infarctions involves a large confluent area of the right cerebral hemisphere and smaller confluent area of the right basal ganglia. Focal hypoatte nuation left tony likely rep resents remote prior ischemic infarction. No mass or mass effect. The ventricles and sulcal sp aces are enlarged due to central brain parenchymal volume loss. Confluent periventricular white matter hypoattenuation is nonspecific but likely represents severe chronic microvascular ischemic changes. The density of the larger intracranial sinuses i s normal. The skull base and calvarium are normal. The paranasal sinuses and mastoid air cells are predominantly clear. IMPRESSION: 1. No acute intracranial abnormality. 2. 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 3. Chronic microvascular ischemic changes and g lobal volume loss. The final report agrees with the pili schuster report by the residential sales rep. Femur series DX EXAM: XR RIGHT FEMUR 2 VIEWS 06/29/2019 [facility] EXAM: XR RIGHT KNEE 3 VIEWS Cent er DATE: 06/29/2019 19:37 [employer] INDICATION: - trauma COMPARISON: None. TECHNIQUE: AP and lateral r adiographs of the femur, AP, lateral and oblique radiographs of the right knee. FINDINGS: There is diffuse o steopenia. Oblique, mildly displaced distal femoral metadiaphyseal fracture is visualized with mild distraction between the fracture fragments. The fracture likely extends in to the lateral femoral condy le and into the patellofemoral joint space. Associated diffuse soft tissue swelling of the knee is visualized along with moderate knee joint effusion. Proximal femur is intact. Al ignment of the femur at the hip and knee joints is normal. There is diffuse osteopenia. Mild tricompartmental degenerative changes of the knee joint are visualized with jeffrey nal osteophytes. Chronic rosana earing cortical irregularity is noted along the lateral aspect of the fibular head. Diffuse vascular calcifications are present IMPRESSION: 1. Oblique, mildly displace d and mildly distracted distal femoral metadiaphyseal fracture with likely extension of the fracture into the lateral femoral condyle and into the patellofemoral joint space. Associated soft tissue swelling and moderate kn ee joint effusion. 2. Diffuse osteopenia. 3. Mild tricompartmental degenerative changes o f the knee joint. 4. Diffuse vascular calcifications. [place] SECTION: ER Knee 3 views DX EXAM: XR RIGHT FEMUR 2 VIEWS 06/29/2019 [facility] Medical EXAM: XR RIGHT KNEE 3 VIEWS Cent er DATE: 06/29/2019 19:37 [employer] INDICATION: - trauma COMPARISON: None. TECHNIQUE: AP and lateral r adiographs of the femur, AP, lateral and oblique radiographs of the right knee. FINDINGS: There is diffuse o steopenia. Oblique, mildly displaced distal femoral metadiaphyseal fracture is visualized with mild distraction between the fracture fragments. The fracture likely extends in to the lateral femoral condy le and into the patellofemoral joint space. Associated diffuse soft tissue swelling of the knee is visualized along with moderate knee joint effusion. Proximal femur is intact. Al ignment of the femur at the hip and knee joints is normal. There is diffuse osteopenia. Mild tricompartmental degenerative changes of the knee joint are visualized with jeffrey nal osteophytes. Chronic rosana earing cortical irregularity is noted along the lateral aspect of the fibular head. Diffuse vascular calcifications are present IMPRESSION: 1. Oblique, mildly displace d and mildly distracted distal femoral metadiaphyseal fracture with likely extension of the fracture into the lateral femoral condyle and into the patellofemoral joint space. Associated soft tissue swelling and moderate kn ee joint effusion. 2. Diffuse osteopenia. 3. Mild tricompartmental degenerative changes o f the knee joint. 4. Diffuse vascular calcifications. [place] SECTION: ER Hip 2/3 views uni w EXAM: XR RIGHT HIP 1 VIEW AND AP PELVIS 02/2019 [facility] pelvis DX DATE: 06/29/2019 19:37 [employer] Center INDICATION: - trauma COMPARISON: None TECHNIQUE: A frog-leg late ral radiograph of the right hip and a single AP radiograph of the pelvis FINDINGS: Diffuse osteopenia . No acute fracture or malalignment is identified. Mild bilateral hip degenerative changes. Note made of diffuse vascular calcifications. IMPRESSION: 1. No acute fracture or malalignment. 2. Diffuse osteopenia. 3. Vascular calcifications. Abdomen AP DX EXAM: Abdomen x-ray. 02/12/2015 [facility] [place] DATE: 02/12/2015. INDICATIONS: Tube placement. FINDINGS: IMPRESSION: A Dobbhoff tube is seen with tip overlying the gastric antrum. Recommend further advancement Brain wo contrast CT EXAM: CT BRAIN WITHOUT CONTRAST. 02/11/2015 [facility] DATE: Feb 11, 2015 08:30:43 AM INDICATION: Lethargy COMPARISON: CT head, Baselin e 02/05/2015, CTA from 02/07/2015, and most recent examination from 02/09/2015 TECHNIQUE: Contiguous axial images of the brain were obtained from the skull base to the vertex without IV contrast. FINDINGS: The ventricles and sulci are normal in size for the patient's age. Again identified, area of hy podensity affecting the right parietal and subinsular regions consistent with a subacute MCA infarct which is smaller in size since 2 days prior. Stable area of gliosis affec ting the left frontal lobe in the periventricular region. No midline shift is identified. eserved.>] No extra-axial collection is detected. The paranasal sinuses, orbits and mastoids are u nremarkable. IMPRESSION: Slight decrease in size of t he hypodensity of the right MCA infarct. No new areas of palomares-white matter differentiation effacement are identified. Left frontal encephalomalacia, stable. Brain wo contrast CT EXAM: CT BRAIN WITHOUT CONTRAST. 02/09/2015 [facility] DATE: 02/09/2015 at 0824. INDICATION: Weakness. COMPARISON: Outside CT brain February 05, 2015 at 14 10. TECHNIQUE: [address]- axial im ages of the brain were obtained from the skull base to the vertex without IV contrast. FINDINGS: Evolving hypodensity in the right MCA territory with loss of palomares-white differentiation compatible with recent infarction. Hypodensity is seen in the frontotemporal lobes with involvement of the insular region. No acute intracrani al hemorrhage. Chronic ischemic changes are seen in the left basal ganglia and davalos radiata. Additional chronic microangiopathic changes in the supratentorial white matter. Worsening of edema an area of infarction with effacement of the adjacent sulci. Increased effacement of the right lateral ventricle. No significant midline shift. Chronic lacunar infarct in the superio r medial right cerebellar he misphere. Prostatic calcifications in the carotid siphons. The basal cisterns are patent. IMPRESSION: Evolving recent acute/early subacute infarct in the right MCA territory. Abdomen AP DX EXAM: X-RAY ABDOMEN ONE VIEW 02/08/2015 [facility] DATE: 02/08/2015 at 1819 COMPARISON EXAMS: 02/07/2015 at 2144 CLINICAL INDICATION: Feeding tube placement DATA: None TECHNIQUE: Single AP view of the upper abdomen DISCUSSION: Feeding tube rem ains in place with its distal tip over the right upper quadrant the abdomen over the expected location of the gastric antrum or gastric pylorus. Visualized bowel gas pattern is nonobstructive. Surgical clips are seen in the right upper quadrant the abdomen. There is mild stable right hemidiaphragmatic elevation. Nonspecific airspace opacities are seen in the lung bases. IMPRESSION: 1. Feeding tube in place wit h its distal tip unchanged in position with its distal tip over the expected location of the gastric antrum or gastric pylorus. Advancement of this tube into the second portion the duodenum is recommended prior to feeding. 2. Nonobstructive bowel gas pattern. Ext Lower Venous EXAM: US BILATERAL LOWER EXTREMITY VENOUS DOPPL ER 02/08/2015 [facility] DATE: Feb 08, 2015 02:00:00 PM INDICATION: Pain in limb COMPARISON: None. TECHNIQUE: Multiplanar benson js, color Doppler and spectral Doppler ultrasound images of the bilateral lower extremity veins were obtained. FINDINGS: The bilateral common femoral , greater saphenous, superficial femoral, and popliteal veins demonstrate normal compressibility and color Doppler signal. IMPRESSION: 1. Negative for bilateral lower extremity deep v ein thrombosis. Abdomen AP DX EXAM: XR ABDOMEN 1 VIEW 02/07/2015 [facility] DATE: Feb 07, 2015 09:55:17 PM INDICATION: Tube placement/removal/reposition. COMPARISON: [None]. TECHNIQUE: One frontal radiograph provided for interpretation. FINDINGS: The tip of the feeding tube is seen in the distal stomach. Right upper quadrant surgical clips, likely from cholecystectomy. The bowel gas pattern is nonobstructive. No oth er significant changes. IMPRESSION: Tube positions as above. Interpreted by Krysta Ga MD. Chest 1view DX PORTABLE CHEST 2015-02-07 12:01:00 02/07/2015 [facility] COMPARISON: 02/05/2015 CLINICAL INDICATION: Heart failure IMPRESSION: Stable left subclavian approach pacemaker device . Cardiomegaly. Small pleural effusions and perihilar edema are better seen on CT neck performed hours prior. No perceptible pneumothorax. Brain/Neck CTA EXAM: CTA HEAD 02/07/2015 [facility] EXAM: CTA NECK DATE: 02/07/2015 INDICATION: Weakness TECHNIQUE: Contiguous thin section imag es of the neck and lower brain were obtained utilizing a multidetector scanner after uneventful administration of nonionic iodinated contrast medium. Surface rendered images generated on an independent workstation and computer reformatted sagittal and coronal images are provided. 3-D MIPS are provided. DISCUSSION: CTA HEAD: There are densely calcified atherosclerotic plaques in the distal petrous, cavernous, and supraclinoid segments of the bilateral internal carotid arteries, which do not appear to be flow-limiting. There is abrupt cutoff in the rig ht MCA distal M1 segment, with attenuated appearance of the efferent vessels (i.e., proximal M2 segments). There is likely distal clot burden with multiple unopacified distal posterior frontal/temporal (distal M3/M4) branches of the right MCA. Collateral score is 2. The basilar artery and its c erebellar branches are patent. 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 There is normal opacification of the major dural venous sinuses. CTA NECK: Aortic arch: There is a sing le vessel trunk off of the aortic arch giving rise to the innominate and left common carotid arteries, reflecting an anatomic variant. There is no flow-limiting stenosis in t he origins of the great vess els. The left vertebral artery there 3 image from the aortic arch between the left common carotid and left subclavian arteries, representing a common variant anatomy. Carotid arteries: There are densely calcified atherosclerotic plaques in the left carotid bulb. There is no hemodynamically significant stenosis in the internal carotid arteries by NASCET criteria. Vertebral arteries: The extr acranial vertebral arteries are patent, with dominance of the left vertebral artery. As noted above, the latter directly emanates from the aortic arch. Incidental note is made of i ncidental note is made of nonspecific bilateral groundglass opacities in the visualized upper lungs. IMPRESSION: 1. Abrupt cutoff in the righ t distal M1 segment with attenuated appearance of the efferent vessels, reflecting incompletely occlusive thrombus. Distal embolization is likely with multiple unopacified M3 and M4 branches on the distal right MCA. Collat eral score is 2. 2. Adk-diqr-ldarxbfx densely calcified atherosclerotic plaques in the bilateral carotid siphons 3. Tqq-zjxu-fjokehos atheros clerotic plaques in the left carotid bulb. No hemodynamically significant stenosis in the internal carotid arteries by NASCET criteria 4. Patent vertebrobasilar ar teries. The dominant left vertebral artery directly originates from the aortic arch, reflecting common anatomic variant. 5. Nonspecific groundglass opacities in the visu alized upper lungs Consultation Notes No Data Provided for This Section Discharge Summaries No Data Provided for This Section History and Physicals No Data Provided for This Section Vital Signs Vital Sign Value Date Comments Source Systolic (mm Hg) 156 07/06/2019 [facility] Diastolic (mm Hg) 65 07/06/2019 [facility] Respitory Rate 22 07/06/2019 [facility] Respitory Rate 26 07/06/2019 [facility] Systolic (mm Hg) 131 07/06/2019 [facility] Diastolic (mm Hg) 60 07/06/2019 [facility] Respitory Rate 27 07/06/2019 [facility] Systolic (mm Hg) 146 07/06/2019 [facility] Diastolic (mm Hg) 65 07/06/2019 [facility] Temperature Oral (F) 98.5 F 07/06/2019 [facility] Temperature Oral (F) 98.1 F 07/06/2019 [facility] Temperature Oral (F) 98.3 F 07/06/[facility] Heart Rate 51 07/01/2019 [facility] Heart Rate 50 07/01/2019 [facility] Heart Rate 50 07/01/2019 [facility] Height 172.72 cm 07/01/2019 [facility] Weight 81 07/01/2019 [facility] BMI Calculated 27.15 07/01/2019 [facility] Height 167.64 cm 06/30/2019 [facility] BMI Calculated 28.82 06/30/2019 [facility] Weight 81 06/30/2019 [facility] Systolic (mm Hg) 118 02/15/2015 [facility] Diastolic (mm Hg) 62 02/15/2015 [facility] Respitory Rate 20 02/15/2015 [facility] Heart Rate 71 02/15/2015 [facility] Temperature Oral (F) 98.2 F 02/15/2015 [facility] Respitory Rate 16 02/15/2015 [facility] Systolic (mm Hg) 137 02/15/2015 [facility] Diastolic (mm Hg) 78 02/15/2015 [facility] Temperature Oral (F) 98.2 F 02/15/2015 [facility] Heart Rate 70 02/15/2015 [facility] Respitory Rate 20 02/15/2015 [facility] Heart Rate 69 02/15/2015 [facility] Temperature Oral (F) 98 F 02/15/2015 [facility] Systolic (mm Hg) 118 02/15/2015 [facility] Diastolic (mm Hg) 50 02/15/2015 [facility] Height 170.18 cm 02/06/2015 [facility] Weight 145.455 02/06/2015 [facility] BMI Calculated 50.22 02/06/2015 [facility] Encounters Location Location Encounter Encounter Reason Attending ADM DC Stat us Source Details Type Number For Provider Date Date Visit [facility] Inpatient [id number] Corine 02/06 02/15 [facility] Eduardo Taylor /2014 [facility] [id number] Frank 06/30 07/06 [facility]2018 [facility] Procedures No Data Provided for This Section Assessment and Plan Assessment and Plan Date Source Extracted from:Title: APMS consultation 07/06/2019 [facility] Author: Ruel Banks DO Date: 07/04/19 Acute Pain Management Service - Initial Inpatient Consultati on ASSESSMENT: 79yo WF with a hx of distal femur fx s/p fall, dementia, CHF, COPD, DM, Guillain [place] Syndrome, HTN, Sleep apnea, TIA s/p retrograde IMN right femur on 07/03. Received right femoral ss w/ dex and spin al L3-4 surgical block. APMS consulted for block check. PLAN: - appropriate progression of PNB, satisf actory pain control, return of sensation - continue MMP as per primary - will now sign off, please call with any issues - plan discussed with APMS Attending Dr. Ruben Banks, DO PGY-3 [facility] [id number] (APMS Resident and Nurse) CONSULTING PHYSICIAN: Kiran Pineda (Ortho) CC: right hip pain HPI: location:right lower extremity and hip pain quality: sharp severity: tolerable timing: constant context: post operative modifying factors: worse with movement, improved with analge sics ROS: resp: denies shortness of breath GI: denies nausea constitutional: denies sweats eyes: denies vision changes ears: denies ringing CV: denies palpitations : voiding MSK: ambulating skin: denies itching neuro: denies headache psych: denies hallucination endo: denies excessive thirst heme: denies easy bleeding immun: denies recurrent infections EXAM: constitutional: no acute distress, resting comfortably eyes: conjunctiva not injected, EOM grossly intact nose: nares patent, no rhinorrhea CV: HR normal resp: non labored respirations GI: no active vomiting MSK: no gross deformity skin: no facial erythema neuro: SILT, +motor fxn psych: cooperative heme: no sign of active bleedings VITALS:Vitals Tmp(F) Pulse BP RR SpO2 FIO2 07/04 09:00 ---- 60 176/75 20 95 1.0L/m 07/04 08:26 98.2 --- ----- -- --- --- 07/04 08:00 ---- 60 191/83 19 100 2.0L/m 07/04 06:00 ---- 60 145/68 20 100 4.0L/m 07/04 04:00 ---- 60 120/58 20 99 4.0L/m 24 Hr Tmax: 98.8F (37.11c) at 07/03 17:1 5 Vital Signs are the last 5 in the past 48 hours. LABS:Creatinine eGFR Date and Time 0.67 83 07/04/2019 03:01 0.62 86 07/03/2019 16:48 0.62 85 07/03/2019 03:24 Hct: 33.6 % Low (07/04/19 03:01:00) Hgb: 10.9 g/dL Low (07/04/19 03:01:00) MCH: 31.3 pg High (07/04/19 03:01:00) MCHC: 32.6 g/dL (07/04/19 03:01:00) MCV: 96.2 fL (07/04/19 03:01:00) MPV: 10 fL (07/04/19 03:01:00) Platelet: 148 K/CMM (07/04/19 03:01:00) RBC: 3.49 M/CMM Low (07/04/19 03:01:00) RDW: 13.9 % (07/04/19 03:01:00) WBC: 9.6 K/CMM (07/04/19 03:01:00)INR: 0.96 Date: 07/03/2019 Time: 16:48 No qualifying data available.No qualifyi ng data available.CO2: 26 mEq/L (07/04/19 03:01:00) Chloride Lvl: 110 mEq/L High (07/04/19 03:01:00) Sodium Lvl: 143 mEq/L (07/04/19 03:01:00) Glucose Lvl: 223 mg/dL High (07/04/19 03:01:00) Calcium Lvl: 8.7 mg/dL (07/04/19 03:01:00) Potassium Lvl: 4.2 mEq/L (07/04/19 03:01:00) BUN: 26 mg/dL High (07/04/19 03:01:00) AGAP: 11.2 mEq/L (07/04/19 03:01:00) Creatinine Lvl: 0.67 mg/dL (07/04/19 03:01:00) PMH: TIA (transient ischemic attack) CHF (congestive heart failure) HTN (hypertension) Asthma COPD DM (diabetes mellitus) Sleep apnea Pacemaker Guillain [place] syndrome FAMHX: No qualifying data available SOCHX:Tobacco Details: Use: Never smoker. Previous tr eatment: None. Ready to change: No. Household tobacco concerns: No. Tobacco smoke exposure: None. Did the Patient Smoke Cigarettes Anytime During the Last 365 Days? No. Cessation Counseling Provided? No. MEDS:Medications (42) Active Scheduled Meds (18): 06/30/19 acetaminophen 1,000 mg PO Q6Hnow 06/30/19 (Suspended) apixaban (Eliquis) 5 mg PO Q12H 06/30/19 ascorbic acid 500 mg PO BID 06/30/19 atorvastatin 40 mg PO Bedtime 07/02/19 carvedilol 3.125 mg PO Q12H 07/04/19 ceFAZolin 2 gm IVP Q8H 200 ml/hr 06/30/19 divalproex sodium (divalproex s odium 125 mg oral delayed release sprinkles(Depakote Sprinkles)) 250 mg PO Bedtime 06/30/19 docusate 100 mg PO BID 06/30/19 furosemide (furosemide 20 mg oral tablet) 20 mg PO Daily 06/30/19 lidocaine topical (Lidoderm 5% topical film (patch) ) 1 patch TOP Q24H 06/30/19 memantine 10 mg PO BID 07/01/19 minocycline 100 mg PO Q12H 07/01/19 polyethylene glycol 3350 17 gm PO Daily 07/01/19 remove patch 1 patch TOP Daily 07/01/19 remove patch 1 patch MISC Q24H 06/30/19 rivastigmine (rivastigmine 13.3 mg/24 hr transdermal film, extended release) 13.3 mg TOP Daily 06/30/19 senna 17.2 mg PO Bedtime 06/30/19 sertraline 50 mg PO Daily Unscheduled Meds: None PRN Meds (18): 06/30/19 Dextrose 50% in Water IV (Dextrose 50% Syringe) 12. 5 gm IVP PRN 06/30/19 Dextrose 50% in Water IV (Dextrose 50% Syringe) 25 gm IVP PRN 06/30/19 Dextrose 50% in Water IV (Dextrose 50% Syringe) 12. 5 gm IVP PRN 06/30/19 Dextrose 50% in Water IV (Dextrose 50% Syringe) 25 gm IVP PRN 06/30/19 glucagon 1 mg IM PRN 06/30/19 glucagon 1 mg IM PRN 06/30/19 guaiFENesin 100 mg PO Q6H 06/30/19 insulin lispro 1 unit SUB-Q TID-Before Meals 06/30/19 insulin lispro 2 unit SUB-Q TID-Before Meals 06/30/19 insulin lispro 3 unit SUB-Q TID-Before Meals 06/30/19 insulin lispro 4 unit SUB-Q TID-Before Meals 06/30/19 insulin lispro 5 unit SUB-Q TID-Before Meals 06/30/19 melatonin 3 mg PO Bedtime 06/30/19 morphine Sulfate 2 mg IVP Q4H 06/30/19 ondansetron 4 mg IVP Q8H 06/30/19 oxyCODONE (oxyCODONE 5 mg/5 mL oral solution) 2.5 m g PO Q4H 06/30/19 oxyCODONE (oxyCODONE 5 mg/5 mL oral solution) 5 mg PO Q4H 06/29/19 sodium chloride (Saline Flush 0.9%) 10 mL IVP PRN One Time Meds (6): (Completed) acetaminophen (acetaminophen (ANES)) I V ONCE (Completed) bupivacaine (bupivacaine (ANES)) INTRA THECAL ONCE (Completed) ceFAZolin (ceFAZolin (ANES)) IV ONCE (Completed) dexmedetomidine (dexmedetomidine (ANES )) IV ONCE (Completed) dexmedetomidine (dexmedetomidine (ANES )) IV ONCE (Completed) hydromorphone (hydromorphone (ANES)) I V ONCE Continuous Infusions: None Addendum by Annie Miranda MD on 07/05/2019 10:13 I saw and personally examined this patie nt and discussed the plan of care with the resident/fellow. I have reviewed the note below and agree with the history, examination findings, and the plan of care. Extracted from:Title: History and Physical Author: Godfrey Miller MD Date: 06/30/19 79-year-old female withpast me dical history of hypertension, diabetes,history of TBI andCVA with left-sided weakness,vascular dementia, bedboundat baseline, Guillain-Abreu syndrome,, field administrative assistant ludmila diastolic CHF, COPDwho presentedwith right femur fracture afterfall from bed. 1.Femur fracture, right(S72.91XA) non operative mgnt per ORS. I concurs pa tient is not a good candidate for surgery and benefit of surgery is minimal given her poor functional status. keep RLE nonweight bearing. RLE on splint. ORS following 2.CAD (coronary artery disease)(I25.10) no active issue Continue Coreg 3.125 mg twice daily, Lipitorand Eliquis 3.CVA (cerebrovascular accident) with left sided weakness(I 63.9) ContinueEliquisand Lipitor 4.TBI (traumatic brain injury)(S06.9X9A) ContinueDepakote 125 mg daily 5.Essential hypertension(I10) BP is acceptable ContinueCoreg3.125 mg twice daily 6.Type 2 diabetes mellitus(E11.9) BG is acceptable Start insulin sliding scaleand carb controlled diet 7.Atrial flutter(I48.92) Rate is controlled Continue Coregand Eliquis 8.Diastolic CHF, acute on chronic(I50.33) Slight hypervolemia Continue home Lasix20 mg daily 10.Vascular dementia(F01.50) Continue qakzwcvrm24 mg daily 11.DNR (do not resuscitate)(Z66) Patient has out of hospital DNR order. her son Navdeep is MPOA. 12.Dysphagia(R13.10) nectar thickened diet Eliquis non operative. change to OBS admission. PT/OT. back to [place] on discharge. Need home med rec. Son will bring medication list from [place]. Addendum by Frank De La Fuente MD on 06/30/2019 13:17 [employer] patient seen and examined doesn't clinically have the pulmonary edema suggested by cxr spoke with her son and MPOA Navdeep Eric roberts, plan for nonop management for now, would consider a palliative procedure if unable to tolerate plan is to exchange ppm battery in the AM as it was Extracted from:Title: Hospitalist Progress Note 02/15/2015 [facility] Author: Lynette Connell MD Date: 02/14/15 Assessment/Plan This is a 74 year old woman admitted with acute right MCA s troke. 1.Dysphagia cleared for pureed diet, n o liquids. I discussed with nutrition - will not be able to meet her hydration needs with options available for pureed diet here. Will give 500ml 1/2 NS BID to me et that need. continue [employer] services. Her dysarthria is improving. If she does not improve here or at snf enough to safely drink liquids, then can re-consider PEG as outpatient. Currently, patient is ada mantly against a PEG tube and family honoring her wishes. 2.Acute right MCA stroke continue aspi rin, plavix and lipitor. etiology thought cardioembolic and stroke team recommensd head CT approximately 02/19 with initiation of warfarin for anticoagulation at that point. 3.Atrial flutter paroxysmal on admissi on. not currently in a flutter. metoprolol changed to coreg for better BP control today. 4.Type 2 diabetes mellitus uncontrolle d. Pureed diet and difficult to accomodate carb control. I will add metformin today;. continue NPH and qac insulin with sliding scale for coverage. 5.Hypertension above goal SBP 130. brandyn nged metoprolol to coreg today. monitor with the new medication change. continue lisinopril and hctz as well. 6.Obesity no acute issues. Prophylaxis lovenox SQ Disposition transfer out of stroke unit. family choosing snf facility. [place] Hospitalist team is the primary serv ice for this patient, please page [phone] with questions. Extracted from:Title: Gastroenterology Consultation Author: Opal Calderon MD Date: 02/13/15 Gastroenterology Consultation for PEG pl acement. However, when going to examine patient, hospitalist informed that at this time family would not like to go forward with PEG tube placement. Primary tea m will call GI back if PEG tube consult is requested. Patient discussed with attending physician, Dr. Wheeler. Opal Calderon M.D. PGY-2 Medicine-Pediatrics Extracted from:Title: stroke Author: Ciro Pereira DO Date: 02/06/15 STROKE TEAM HISTORY AND PHYSICAL Attending of Record: Dr. Taylor Patient Name: Zeinab Humphries Date of Admission: 02/06/15 Requesting Physician/Service: Transferred from [facility] CC: left hemiparesis, LFD HISTORY OF PRESENT ILLNESS: 74 yo RH female with history o f CHF s/p PM, HTN, DM, HLD, COPD on home O2 presented to OSH with LFD, Left hemiparesis, LSN 02/05 @ 1245pm, seen by telemedicine. She was getting dressed, sat do wn, then symptoms started with dysarthri a and LFD. Pt has a history of GBS in 2000, treated with IVIg, has had about 3 TIAs since 2000 with no neurological deficits but ambulates with walker at baseline for neuropathy. Pt also has COPD on home oxygen and inhaler s. Apparently, patient was on aggrenox for TIA tx, she was switched to Plavix due to insurance issues. She stopped taking Aggrenox on 02/03, started on Plavix 02/04, symptoms started 02/05. Initial NIHSS w as 3. Patients sxs improved initially th erefore no tpa given. Last night around 2019, patient was found to be weak, worsening of symptoms. Repeat CTH showed watershed infarcts. Patients Neurologist is Dr. Lane (?spelling) OSH reports: CUS: R ICA stenosis @ 40-59%; L ICA stenosis at 1-39% BNP 727 CTH: areas of scattered hypoattenuation in b/l centrum semiovale, concerning for acute internal watershed infarcts. No associated intraparenchymal hemorrhage. Chronic infarcts of the L caudate head, L davalos radiata and b/l subinsular white matter. Repeat CTH: interval development of evol ving acute R MCA vascular insult (R subinsular region and perisylvian cortex). Old lacunar infarct in b/l striata capsular region, b/l putamen and R thalamus. Unc hanged old vascular infarct in L caudate head, L davalos radiata and left subinsular region. Unchanged mod supratentorial small vessel ischemic changes, unchanged generalized age-related cerebral volume loss. CXR: pulmonary edema REVIEW OF SYSTEMS: GEN: no fever, chills, weight loss, fatigue EYES: no blurred vision, double vision CARDIO: no chest pain, palpitations PULM: no shortness of breath, cough GI: no nausea, vomiting, diarrhea, no abd pain : no frequency, dysuria, hematuria NEURO: see HPI SKIN: no rash or lesion MSK: no pain, swelling, redness, heat in muscles, no limited ROM, weakness, or atrophy, no cramps LYMPH/IMMUNO: No lymph node enlargement/tenderness, no heat/ cold intolerance PAST MEDICAL HISTORY: as above; GERD, knee arthritis PAST SURGICAL HISTORY: h/o trach for GBS ; cholecystectomy, hysterectomy, PM, tonsillectomy FAMILY MEDICAL HISTORY: SOCIAL HISTORY: Denies etoh, tobacco, drugs. Lives with alone. MEDICATIONS: Amitryptyline 10mg po qhs Advair 250-50 mcg/act, 1 puff inh rt bid Metoprolol 25mg bid Lisinopril Lasix Norvasc 5mg po qd Lipitor 10mg po qhs Humalog Insulin omeprazole kcl isosorbide dinitrate ipratropium bromide/albuterol lasix 60mg po qd Plavix 75mg po qd (recently switched from Aggrenox on Wednesday ) ALLERGIES: tramadol, demerol hcl, influe nza virus vaccine, inactivated, meperidine PHYSICAL EXAM: Vitals Tmp(F) Pulse BP RR SpO2 FIO2 02/06 16:40 ---- 62 ----- 33 94 --- 02/06 16:35 ---- 60 ----- 35 95 --- 02/06 16:23 ---- 62 133/60 33 96 --- 02/06 16:12 99.3 --- ----- -- --- --- 24 Hr Tmax: 99.3F (37.39c) at 02/06 16:1 2 Vital Signs are the last 5 in the past 48 hours. GENERAL: Awake, alert, NAD. HEENT: - Normocephalic and atraumatic; MMM LUNGS - Clear to auscultation bilaterally with no wheezes CV - S1S2 RRR, no m/r/g, equal pulses bilaterally. ABDOMEN - Soft, nontender, nondistended with normoactive BS NEURO: Mental status: Awake, alert, and interac tive. Answers questions and follows commands appropriately. Pt is fluent. Cranial nerves: Pupils equal, round, and reactive. R__4____mm L__4___mm. +LFD, left hemianopia, right gaze preference, does not BTT on L Motor: Normal bulk and tone. Strength is 5/5 proximally and distally on right. LUE 4/5, LLE 4+/5. Sensation: left sided sensory loss on arm and leg Coordination: No dysmetria on finger-nose Reflexes: R Biceps 2+, Triceps 2+, Brachioradialis 2+, Rueda la 2+, Ankle 2+. L Biceps 2+, Triceps 2+, Brachioradialis 2+, Patella 2+, Ankle 2+. Toes downgoing bilaterally. Gait: narrow-based and steady with appropriate armswing and stride length. NIH Stroke Scale (NIHSS) 0 1a. Level of Consciousness; 0-alert 1-drowsy 2-stupor 3 -comatose 0 1b. LOC Questions month and age; 0-both 1-one 2-neit her 0 1c. LOC Commands open/close eyes, gr ip/release non-paretic hand; 0-both 1- one 2-neither 1 2. Best Gaze; 0-nl 1-partial 2-forced gaze 1 3. Visual Ramirez; 0-No visual loss. 1- Partial hemianopia 2-Complete 3-Bilateral 2 4. Facial Palsy; 0-none 1-minor 2-partial 3-complete 0 5. Motor - R arm; 0-No drift 1-Drift 2-Some antigravity 3-No antigravity 4-No movement 0 6. Motor - R leg; 0-No drift 1-Drift 2-Some antigravity 3-No antigravity 4-No movement 1 7. Motor - L arm; 0-No drift 1-Drift 2-Some antigravity 3-No antigravity 4-No movement 1 8. Motor - L leg; 0-No drift 1-Drift 2-Some antigravity 3-No antigravity 4-No movement 0 9. Limb Ataxia; 0 absent 1 - 1limb 2 - 2 limbs 1 10. Sensory; 0-nl 1-partial loss 2-dense loss 0 11. Best Language; 0-nl 1-mild/mod 2-severe 3-mute 1 12. Dysarthria; 0-nl 1-mild/mod 2-severe x-unte stable 0 13. Extinction and Inattention (former ly Neglect); 0-none 1-partial 2-complete TOTAL SCORE 8 SIGNIFICANT LABS: Creatinine: 1.1, GFR 48 INR: 0.97 Cardiac Markers: neg UA wnl LDL 41-->31 A1c: 5.7 DIAGNOSTIC TESTS: CT Head: R MCA watershed embolic infarcts CTA/Perfusion: pending MRI/MRA of head: unable to perform due to pacemaker EKG: pend ASSESSMENT: 74 yo RH female with history o f CHF s/p PM, HTN, DM, HLD, COPD on home O2 presented to OSH with LFD, Left hemiparesis, right gaze preference, left visual field cut, LSN 02/05 @ 1245pm. Pt was not tpa candidate because at the time, s he had improved with no disabling symptoms but now has right gaze pref, left hemianopia, left hemiparesis (face/arm>leg) without aphasia. Dx: R MCA infarct, most likely M1 affected Etiology: Likely cardioembolic, hypercoaguable, pending furt her investigation PLAN No thrombolysis Admit to stroke unit. ASA 325mg daily; pt received ASA + Plavix prior to transfer. Atorvastatin 10mg daily given LDL 41 from OSH HOB flat Telemetry TTE to evaluate for cardiac source of embolus. Stroke labs: hemoglobin A1c . IV NS 40 cc/hr given pt has pulmonary edema Continue Lasix 40mg May start to normalize, SBP goal is 140-160. Treat fevers and blood sugars aggressively. PT/OT/CHASSIS INSPECTOR consults - rehab assessments have been ordered. DVT prophylaxis, SCDs Lovenox for DVT ppx COPD: duonebs, CXR, 2LNC 02 CHF, acute on chronic: cont lasix, metoprolol, lisinopril. r epeat BNP. UTI: ucx pend. Start on Rocephin 1gm IVPB qd. No white count , afebrile. 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 i have reviewed the resident 's note detailed above. I agree with the resident's findings, assessment and plan as outlined in the note except as detailed below. 02/06: presented here with worsening of left hemiparesis In addition, i have reviewed the patient's neuroimaging find ings which reveal: CT 02/05: chronic WM disease, likley field administrative assistant ludmila left frontal subcortical hypodensity, no acute findings; FU CT 02/05: evolving R insular/temporal hypodensity CTA 02/07: distal R M1 stenosis; intracranial athero MRI: pacer TTE: pending LIPIDS: chol 110 tg 81 hdl 63 ldl 31 hga1c 5.7 H exam: awake, alert, just worked with PT, she has asterixis, dysarthric, forced right gaze, L VF loss, but oriented, mild left hemiparesis 4/5 impression/Plan: THE FOLLOWING WERE PRESENT ON ADMISSION: PRINCIPAL DIAGNOSIS: 434.11, ischemic stroke acuity: acute Location: R frontal/temporal lobes vessel involved: R MCA residual deficit/laterality: LEFT hemiparesis, dysarthria Etiology: unknown, evaluation in progress, cardioembol ic vs intracranial athero Diagnostic Evaluation: FU study reports, telemetry Treatment Plan: asa for now, LDL is at goal, PT/OT/ST, liberal BP today - she appears to be normal without intervention; 438.21 hemiparesis, left non-dominant 348.5, cerebral edema 401.9, HTN, accelerated -Goal SBP today: 120-160 -would like to augment with IVF but with hx of CHF, don't want to overload with volume -d/w IM 250.00 DM type 2 -hyperglycemia 272.4, hyperlipidemia COPD on home O2 -she currently has asterixis, likely due to too much O2; -keep O2 sat 90-94% metabolic encephalopathy -due to O2 in chronic COPD 787.20, dysphagia -need oral access -DHT or ASA SC 428.40 CHF, chronic systolic and diastolic -with pacer -continue home medication regimen -will consult [facility] for baseline medical issues 73414 CORE MEASURES: 1) Antithrombotics have been ordered an d actually given before the end of hospital day 2: pt refused DHT and SC asa initially 2) Statins have been ordered for LDL > 1 00 OR NOT APPLICABLE BECAUSE: no oral access yet 3) That rehab assessment has been ordered and assesment has been done 4) Stroke education: I have discussed wi th the patient and/or family in detail about 1. the signs and symptoms of stroke; 2. the importance of their early recognition and activation of EMS via 911; 3. s troke risk factors have been clearly rico ntified and communicated to the patient; 4. The importance of taking prescribed medication to treat these risk factors for secondary stroke prevention; and 5. th e importance of regular follow- up appoi ntments to prevent stroke has also been emphasized. 5) patient is not an IA candidate as he/ she does not fit institutional [place] protocol 72983 Plan of Care No Data Provided for This Section Social History Social History Date Source Social History TypeResponse 07/01/2019 [facility] Smoking Status Never smoker; Previous treatment: None; Ready to change: No; Concerns about tobacco use in household: No; Exposure to Tobacco Smoke None; Cigarette Smoking Last 365 Days No; Reg Smoking Cessation Counseling No entered on: 06/30/19 Family History No Data Provided for This Section Advance Directives No Data Provided for This Section Functional Status No Data Provided for This Section
--- OUTSIDE RECORDS SUMMARY | 2020-03-22 18:40 | XMS REPORT | Continuity of Care Document ---
:1940 Author Organization [facility] t Address [address] [place] [address] Care Team Providers Name Role Phone PILAR VALDIVIA M.D. Attending Clinician Unavailable Tiana Shanks Attending Clinician Ko Attending Clinician Man De La Fuente Admitting Clinician aSvita Taylor Admitting Clinician Problems Condition Condition Condition Status Onset Resolution Last Treating Co mments Source Name Details Category Date Date Treatment Clinician Date FALL Diagnosis Active 2018-082019-06-29 Mem oria 08-29 21:09:00 l FALL 00:00: Eduardo 00 Active 06/29/2019 [facility] FEMUR FX, Diagnosis Active 2018-082019-07-11 Memoria RIGHT 08-29 22:03:00 l FEMUR 00:00: Eduardo FX, RIGHT 00 Active 06/29/2019 [facility] ISCHEMIC Diagnosis Active 2015-02-14 M emorijaden CVA SEEN 02-06 21:02:[address] ISCHEMIC 00:00: Jaya bruno CVA SEEN [address] Active 02/06/2015 [facility] Diabetes Diabetes Problem Active Unive rs mellitus mellitus [facility]y of [place] [facility] History of History of Problem Resolve Univers essential essential d ity [place] History of History of Problem Resolve Univers transient transient d ity of cerebral cerebral [place] ischemia ischemia Physic i ans Heartburn Heartburn Problem Active Uni vers [facility] [place] [facility] Dizziness Dizziness Problem Active Uni vers [facility] [place] [facility] Murmur Murmur Problem Active [facility] [place] [facility] Congestive Congestive Problem Active U nivers heart heart ity of failure failure [place] [facility] Essential Essential Problem Active Uni vers (primary) (primary) ity [place] hypertens[place] [facility]ici [facility] Coronary Coronary Problem Active Unive rs artery artery ity of disease disease [place] [facility] Shortness Shortness Problem Active Uni vers of breath of breath [facility] of [place] [facility] Limb Limb Problem Active Univers swelling swelling [facility] of [place] [facility] Stroke Stroke Problem Active Univers syndrome syndrome [facility] of [place] [facility] Transient Transient Problem Active Uni vers ischemic ischemic ity of attack attack [place] [facility] Asthma Problem Resolve 2019-07-08 Abdifatah tesfaye (disorder) d 22:40:13 l Asthma Eduardo (disorder) Resolved Problem 07/08/2019 [facility] Chronic Problem Resolve 2019-07-08 Mem oria obstructiv d 22:40:13 l e lung Chronic Eduardo disease obstructiv (disorder) e lung disease (disorder) Resolved Problem 07/08/2019 [facility] [place] Problem Resolve 2015-02-18 Memoria r d 00:57:57 l structure Nice (body [place] structure) r structure (body structure) Resolved Problem 02/18/2015 [facility] 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 07/08/2019 [facility] Hypertensi Problem Resolve 2019-07-08 Memoria ve d 22:40:13 l disorder, Nice systemic Hypertensi arterial ve (disorder) disorder, systemic arterial (disorder) Resolved Problem 07/08/2019 [facility] Cardiac Problem Resolve 2019-07-08 Mem oria pacemaker d 22:40:13 l in situ Cardiac Jaya n (finding) pacemaker in situ (finding) Resolved Problem 07/08/2019 [facility] Sleep Problem Resolve 2019-07-08 Abdifatah tesfaye apnea d 22:40:13 l (finding) Sleep Jaya n apnea (finding) Resolved Problem 07/08/2019 [facility] Hyperchole Problem Active 2019-07-08 M emoria sterolemia 22:40:13 l (disorder) Jaya n Hyperchole sterolemia (disorder) Active Problem 07/08/2019 Data migrated from [employer] on 01/19/15. [facility] Diabetes Problem Active 2019-07-08 Mem oria mellitus 22:40:13 l type 1 Diabetes Jyaa n (disorder) mellitus type 1 (disorder) Active Problem 07/08/2019 Data migrated from [facility] on 01/19/15. [facility] CVA Diagnosis Active 2015-02-14 Mem oria 21:02:00 l CVA Eduardo Active [facility] UNSP Diagnosis Active 2019-07-11 Mem oria FRACTURE 22:03:00 l OF RIGHT UNSP Nice FEMUR, FRACTURE INIT FOR C OF RIGHT FEMUR, INIT FOR C Active [facility] Allergies, Adverse Reactions, Alerts Allergy Allergy Status Severity Reaction(s) Onset Inactive Treating Comm ents Source Name Type Date Date Clinician Demerol drug Active [facility] influenz influenz Active Memori a a virus a virus l vaccine, vaccine, Jaya n inactiva inactiva aristeo<sup> aristeo<sup> 1</sup> 1</sup> meperidi meperidi Active Memori a ne<sup>2 ne<sup>2 l </sup> </sup> Eduardo codeine< codeine< Active Memori a sup>1</s sup>1</s l up> up> Eduardo influenz influenz Active Memori a a virus a virus l vaccine, vaccine, Jaya n inactiva inactiva aristeo<sup> aristeo<sup> 3</sup> 3</sup> traMADol traMADol Active Memori a <sup>4</ <sup>4</ l sup> sup> Eduardo Family History Family Member Diagnosis Comments Start Date Stop Date Source Mother [facility] Left-sided Congestive Phy sicians Heart Failure Social History Smoking Status Start Date Stop Date Source Social History [facility] Medications Ordered Filled Start Stop Current Ordering Indication Dosage Frequency Signature Comments Components Source Medication Medication Date Date Medication? Clinician (SIG) Name Name Acetaminoph 2018-08 Yes 1,000 mg = Memoria en 500 MG -14 2 tab, PO, l Oral Tablet 18:06: Q6Hnow, 0 H ermann 00 Refill(s) carvedilol 2018-08 Yes 6.25 mg = Me moria 6.25 mg -14 1 tab, PO, l oral tablet 18:06: Q12H, 0 Her wilcox 00 Refill(s) Insulin 2018-08 Yes 8 unit, Memoria Glargine 1-14 SUB-Q, l 100 UNT/ML 18:06: Bedtime, 0 H ermann Injectable 00 Refill(s) Solution [Lantus] Lidocaine 2018-08 Yes 1 patch, Abdifatah tesfaye Hydrochlori 1-14 TOP, Q24H, l de 0.05 18:06: 0 Eduardo MG/MG 00 Refill(s) Transdermal Patch [Lidoderm] minocycline 2018-08 Yes 100 mg = 1 Memoria 100 mg oral 1-14 cap, PO, l capsule 18:06: Q12H, 0 Nice 00 Refill(s) POLYETHYLEN 2018-08 Yes 17 gm = 1 M emoria E GLYCOL -14 pkt, PO, l 3350 18:06: Daily, 0 Eduardo Refill(s) potassium 2018-08 No 20 mEq, 15 Me moria chloride 1-14 mL, Route: l 15:00: PO, Drug form: LIQ, Daily, Dosing Weight 81, kg, Start date: 07/06/19 9:00:00 FOOD CRITIC, Duration: 30 day, Stop date: 08/04/19 9:00:00 FOOD CRITIC, 0 Insulin 2018-08 No 8 unit, Memoria Glargine 1-14 0.08 mL, l 100 UNT/ML 03:00: Route: Didi nn Injectable 00 SUB-Q, Solution Drug form: [Lantus] SOLN, Bedtime, Dosing Weight 81, kg, Start date: 07/05/19 21:00:00 FOOD CRITIC, Duration: 30 day, Stop date: 08/03/19 21:00:00 FOOD CRITIC, 0 carvedilol 2018-08 No Notes: Memor ia 1-13 Give with l 03:00: food. Eduardo 00 (Same As: Coreg) Coreg 2018-08 No Notes: Memoria 1-12 Give with l 19:50: food. Eduardo 00 (Same As: Coreg) Lasix 2018-08 No Notes: Memoria -12 (Same as: l 19:46: Lasix) Eduardo 00 Cefazolin 2018-08 No 2 gm, 20 Abdifatah tesfaye 1-12 mL, Route: l 08:30: IVP, Drug form: SOLN, Q8H, Dosing Weight 81, kg, Start date: 07/04/19 2:30:00 FOOD CRITIC, Duration: 3 doses or times, Stop date: 07/04/19 18:30:00 FOOD CRITIC, ABX Indication : Surgical Prophylaxi s, 0 hydromorpho 2018-08 No Route: IV, Memoria ne (ANES) 09-03 Drug form: l 02:12: INJ, ONCE, Stop date: 07/03/19 20:12:00 FOOD CRITIC dexmedetomi 2018-08 No Route: IV, Memoria dine (ANES) 09-03 Drug form: l 02:05: INJ, ONCE, Stop date: 07/03/19 20:05:00 FOOD CRITIC acetaminoph 2018-08 No Route: IV, Memoria en (ANES) 09-03 Drug form: l 02:00: INJ, ONCE, Stop date: 07/03/19 20:00:00 FOOD CRITIC dexmedetomi 2018-08 No Route: IV, Memoria dine (ANES) 09-03 Drug form: l 01:30: INJ, ONCE, Stop date: 07/03/19 19:30:00 FOOD CRITIC Labetalol 2018-08 No 10 mg, Memori a 09-03 Route: l 01:26: IVP, Eduardo 00 Q5Min, Dosing Weight 81, kg, PRN Elevated BP, Start date: 07/03/19 19:26:00 FOOD CRITIC, Duration: 5 doses or times, Stop date: Limited # of times Oxycodone 2018-08 No 2.5 mg, Memor ia 09-03 Route: PO, l 01:26: Drug form: Nice 00 LIQ, Q4H, Dosing Weight 81, kg, PRN Pain Score 4-6, Start date: 07/03/19 19:26:00 FOOD CRITIC, Duration: 30 day, Stop date: 08/02/19 19:25:00 FOOD CRITIC Hydromorpho 2018-08 No 0.2 mg, Mem oria ne 09-03 Route: l 01:26: IVP, Nice 00 Q10Min, Dosing Weight 81, kg, PRN Pain Score 7-10, Start date: 07/03/19 19:26:00 FOOD CRITIC, Duration: 5 doses or times, Stop date: Limited # of times Flumazenil 2018-08 No 0.2 mg, Abdifatah tesfaye 12 Route: l 01:26: IVP, PRN, Dosing Weight 81, kg, PRN Benzodiaze pine Reversal, Initial dose, Start date: 07/03/19 19:26:00 FOOD CRITIC, Duration: 30 day, Stop date: 08/02/19 19:25:00 FOOD CRITIC Naloxone 2018-08 No 0.4 mg, Memori a 09-03 Route: l 01:26: IVP, Eduardo 00 Q2MIN, Dosing Weight 81, kg, PRN Narcotic Reversal, Start date: 07/03/19 19:26:00 FOOD CRITIC, Duration: 8 doses or times, Stop date: Limited # of times Ondansetron 2018-08 No 4 mg, Memor ia 09-03 Route: l 01:26: IVP, ONCE, Dosing Weight 81, kg, PRN Nausea & Vomiting, Start date: 07/03/19 19:26:00 FOOD CRITIC bupivacaine 2018-08 No Route: Abdifatah tesfaye (ANES) -12 INTRATHECA l 01:25: L, Drug Form: INJ, ONCE, Stop date: 07/03/19 19:25:00 FOOD CRITIC ceFAZolin 2018-08 No Route: IV, Me moria (ANES) 09-03 Drug form: l 01:09: INJ, ONCE, Stop date: 07/03/19 19:09:00 FOOD CRITIC Sodium 2018-08 No Route: IV, Memor ia Chloride -11 Total l 0.9% IV 23:45: Volume: Eduardo (ANES) 1000 00 1,000, mL Start date: 07/03/19 17:45:00 FOOD CRITIC, Stop date: 07/03/19 18:45:00 FOOD CRITIC Minocycline 2018-08 No 100 mg, 1 M emoria 1-10 cap, l 03:00: Route: PO, Nice 00 Drug form: CAP, Q12H, Dosing Weight 81, kg, Start date: 07/01/19 21:00:00 FOOD CRITIC, Duration: 7 day, Stop date: 07/08/19 9:00:00 FOOD CRITIC, 0 Acetaminoph 2018-08 No Notes: Do M emoria en 08-31 not exceed l 18:15: 4 gm/day. (Same as: Tylenol) POLYETHYLEN 2018-08 No Notes: Abdifatah tesfaye E GLYCOL 08-31 Dissolve l 3350 15:00: in 8 oz of water or juice. (Same as: Miralax) remove 2018-08 No Notes: Memoria patch 08-31 Remove old l 15:00: patch before applicatio n of new patch. remove 2018-08 No 1 patch, Memoria patch 08-31 Route: l 08:00: MISC, Eduardo Q24H, Drug form: ERFILM, Start date: 07/01/19 2:00:00 FOOD CRITIC, Duration: 30 day, Stop date: 07/30/19 2:00:00 FOOD CRITIC, 0 Divalproex 2018-08 No Notes: Memor ia Sodium 125 08-31 (Same as: l MG Enteric 03:00: Depakote Her wilcox Sprinkles) Capsule Do not confuse with 250mg capsule or tablets Do not crush. May sprinkle on food. sennosides, 2018-08 No Notes: Abdifatah tesfaye INTERMEDIATE 08-31 (Same as: l 03:00: Senokot) atorvastati 2018-08 No Notes: Abdifatah tesfaye n 08-31 (Same as: l 03:00: Lipitor) Ascorbic 2018-08 No Notes: Memoria Acid 08-30 (Same as: l 23:00: Vitamin C) Memantine 2018-08 No Notes: Memori a 08 (Same As: l 23:00: Namenda) Guaifenesin 2018-08 No Notes: Abdifatah tesfaye -08 (Same as: l 22:59: Robitussin ) Melatonin 2018-08 No Notes: Memori a -08 (Same as: l 22:59: Melatonin) Milk of 2018-08 No 400 mg/ 5 Memor ia Magnesia 1-08 mL, PO, l 22:31: Daily, PRN constipati on, 0 Refill(s) carvedilol 2018-08 No 3.125 mg = M emoria 3.125 mg 08-30 1 tab, PO, l oral tablet 22:31: Q12H, # 60 tab, 0 Refill(s) Divalproex 2018-08 Yes 250 mg = 2 M emoria Sodium 125 1-08 cap, PO, l MG Enteric 22:31: Bedtime, # H ermann Coated 00 90 cap, 0 Capsule Refill(s) Pro-Stat 2018-08 No Pro-Stat Memor ia Liquid 08 Liquid, 1 l 22:31: dose, PO, Eduardo 00 Daily, 1 dose by mouth, Refill(s) 0 Li-Tussin 2018-08 Yes 100 mg = 5 Memoria Expectorant -08 mL, PO, l 100 mg/5 mL 22:31: Q6H, PRN He rmann oral liquid 00 Cough, 0 Refill(s) Novolin N 2018-08 No 20 unit, Abdifatah tesfaye 08 SUB-Q, l 22:31: Daily, 0 Eduardo 00 Refill(s) Ascorbic 2018-08 Yes 500 mg, Memori a Acid 1-08 PO, BID, 0 l 22:31: Refill(s) Eduardo 00 atorvastati 2018-08 Yes 40 mg = 1 M emoria n 40 mg 1-08 tab, PO, l oral tablet 22:31: Bedtime, # Nice 00 90 tab, 1 Refill(s) memantine 2018-08 Yes 10 mg = 1 Mem oria 10 mg oral 1-08 tab, PO, l tablet 22:31: BID, # 60 Jaya n 00 tab, 0 Refill(s) melatonin 3 2018-08 Yes 3 mg = 1 Me moria mg oral 1-08 tab, PO, l tablet 22:31: Bedtime, Eduardo 00 PRN for insomnia, # 60 tab, 0 Refill(s) sertraline 2018-08 Yes 50 mg = 1 Me moria 50 mg oral 1-08 tab, PO, l tablet 22:31: Bedtime, # Didi nn 00 30 tab, 0 Refill(s) Docusate 2018-08 Yes 100 mg = 1 Mem oria Sodium 100 1-08 cap, PO, l MG Oral 22:31: BID, # 60 Didi nn Capsule 00 cap, 0 Refill(s) Promethazin 2018-08 No 25 mg = 1 M emoria e 1-08 tab, PO, l Hydrochlori 22:31: Q6H, PRN He rmann de 25 MG 00 Nausea/Vom Oral Tablet iting, # 12 tab, 0 Refill(s) Albuterol 2018-08 No 2.49 mg = Mem oria 0.83 MG/ML 08-30 3 mL, NEB, l Inhalant 22:31: Q12H, PRN Herm sanjiv Solution 00 as needed for shortness of breath, # 120 ea, 3 Refill(s) Acetaminoph 2018-08 No 100.4 F, M emoria en 08-30 0 l 22:31: Refill(s) Nice 00 Lidocaine 2018-08 No Notes: Memori a Hydrochlori 08-30 Apply only l de 0.05 20:00: once for Jaya n MG/MG 00 up to 12 Transdermal hours in a Patch 24-hour [Lidoderm] period (12 hours on and 12 hours off). (Same as: Lidoderm) Acetaminoph 2018-08 No Notes: Max Memoria en 08-30 acetaminop l 20:00: hen 4000 Eduardo 00 mg/day (4 gm/day). (Same as: Tylenol Extra Strength) Oxycodone 2018-08 No Notes: Memori a Hydrochlori 08-30 (Same as: l de 1 MG/ML 19:16: 'Roxicodon H ermann Oral 00 e) Solution Morphine 2018-08 No Notes: Memoria 08-30 (Same l 19:16: as:MORPhin Eduardo 00 e Sulfate) Ondansetron 2018-08 No Notes: Abdifatah tesfaye 08-30 (Same as: l 19:16: Zofran) Eduardo 00 MEDICATION WASTE Product Size: 4 mg Product Wasted: _0__ mg Docusate 2018-08 No Notes: Memoria -08 (Same as: l 15:00: Colace) Eduardo 00 (Do Not Crush) carvedilol 2018-08 No Notes: Memor ia -08 Give with l 15:00: food. Eduardo 00 (Same As: Coreg) Eliquis 2018-08 No Notes: Memoria -08 Same as: l 15:00: Eliquis Nice 00 Divalproex 2018-08 No Notes: Memor ia Sodium 125 08 (Same as: l MG Enteric 15:00: Depakote Her wilcox Coated 00 Sprinkles) Capsule Do not confuse with 250mg capsule or tablets Do not crush. May sprinkle on food. Furosemide 2018-08 No Notes: Memor ia 20 MG Oral 1-08 (Same as: l Tablet 15:00: Lasix) Nice 00 May cause GI upset. Give with food or milk. Memantine 2018-08 No Notes: Memori a 1-08 (Same As: l 15:00: Namenda) Nice 00 24 HR 2018-08 No Notes: Memoria rivastigmin 1-08 Same as l e 0.554 15:00: Exelon Nice MG/HR 00 "Remove Transdermal old patch Patch before applicatio n of new patch" Sertraline 2018-08 No Notes: Memor ia 1-08 (Same as: l 15:00: Zoloft) Eduardo 00 heparin 2018-08 No 5,000 Memoria 1-08 unit, l 14:00: Route: Eduardo 00 SUB-Q, Q8H, Dosing Weight 81, kg, Start date: 06/30/19 8:00:00 FOOD CRITIC, Stop date: 07/30/19 0:00:00 FOOD CRITIC Oxycodone 2018-08 No Notes: Memori a Hydrochlori -08 (Same as: l de 1 MG/ML 12:25: 'Roxicodon H ermann Oral 00 e) Solution 24 HR 2018-08 Yes = 1 patch, Memori a rivastigmin 1-08 TOP, l e 0.554 12:19: Daily, Eduardo MG/HR 00 apply to Transdermal area that Patch is clean/dry/ hairless & free of redness/ir ritation/b urns/cuts, # 30 patch, 0 Refill(s) sertraline 2018-08 No 50 mg = 1 Me moria 50 mg oral 1-08 tab, PO, l tablet 12:17: Daily, # Eduardo 00 30 tab, 0 Refill(s) Furosemide 2018-08 No 20 mg = 1 Me moria 20 MG Oral 1-08 tab, PO, l Tablet 12:17: Daily, # Eduardo 00 30 tab, 0 Refill(s) carvedilol 2018-08 No 3.125 mg = M emoria 3.125 mg 1-08 1 tab, PO, l oral tablet 12:17: Q12H, # 60 Eduardo 00 tab, 0 Refill(s) apixaban 5 2018-08 Yes 5 mg, PO, Me moria MG Oral 08 Q12H, 0 l Tablet 12:17: Refill(s) Jaya n [Eliquis] 00 Acetaminoph 2018-08 No 1 tab, PO, Memoria en 300 MG / 08-30 Q12H, PRN l Codeine 12:17: Pain, # 42 Herm sanjiv Phosphate 00 tab, 0 30 MG Oral Refill(s) Tablet memantine 2018-08 No 10 mg = 1 Mem oria 10 mg oral -08 tab, PO, l tablet 12:17: Daily, # Nice 00 30 tab, 0 Refill(s) atorvastati 2018-08 No 40 mg = 1 M emoria n 40 mg -08 tab, PO, l oral tablet 12:17: Bedtime, # Nice 00 30 tab, 0 Refill(s) 24 HR 2018-08 No = 1 patch, Memori a rivastigmin 08-30 TOP, l e 0.554 12:17: Daily, Nice MG/HR 00 apply to Transdermal area that Patch is clean/dry/ hairless & free of redness/ir ritation/b urns/cuts, # 30 patch, 0 Refill(s) Divalproex 2018-08 No 125 mg = 1 M emoria Sodium 125 -08 cap, PO, l MG Enteric 12:17: Daily, # Her wilcox Coated 00 90 cap, 0 Capsule Refill(s) potassium 2018-08 Yes = 1 tab, Abdifatah tesfaye chloride 20 1-08 PO, Daily, l mEq oral 12:17: # 90 tab, Herm sanjiv powder 00 1 Refill(s) NPH 2018-08 No 15 unit, Memoria Insulin, 08 SUB-Q, l Human 100 12:17: Bedtime, # He rmann UNT/ML 00 10 ml, 0 Injectable Refill(s) Suspension [Novolin N] Dextrose 2018-08 No 12.5 gm, Memor ia 50% Syringe 08-30 25 mL, l 11:11: Route: Nice 00 IVP, Drug Form: INJ, Dosing Weight 81, kg, PRN, PRN Blood Glucose Results, Start date: 06/30/19 5:11:00 FOOD CRITIC, Duration: 30 day, Stop date: 07/30/19 5:10:00 FOOD CRITIC, 0 Glucagon 2018-08 No 1 mg, Memoria 08-30 Route: IM, l 11:11: Drug form: Eduardo 00 PDR/INJ, PRN, Dosing Weight 81, kg, PRN Blood Glucose Results, Start date: 06/30/19 5:11:00 FOOD CRITIC, Duration: 30 day, Stop date: 07/30/19 5:10:00 FOOD CRITIC, 0 Insulin 2018-08 No Notes: Memoria Lispro - (Same as: l 11:11: Humalog) Roll in palms of hands gently; Do not shake vigorously . WASTE: F/P - Black; E - Municipal Trash Bin Stable for 28 days at room temperatur e. Expires in days from ____Date Oxycodone 2018-08 No Notes: Memori a Hydrochlori 08-30 (Same as: l de 1 MG/ML 11:10: 'Roxicodon H ermann Oral e) Solution tizanidine 2018-08 No Notes: Memor ia -08 (Same As: l 11:10: Zanaflex) Dextrose 2018-08 No 12.5 gm, Memor ia 50% Syringe 08-30 25 mL, l 11:07: Route: IVP, Drug Form: INJ, Dosing Weight 81, kg, PRN, PRN Blood Glucose Results, Start date: 06/30/19 5:07:00 FOOD CRITIC, Duration: 30 day, Stop date: 07/30/19 5:06:00 FOOD CRITIC, 0 Glucagon 2018-08 No 1 mg, Memoria 08-30 Route: IM, l 11:07: Drug form: PDR/INJ, PRN, Dosing Weight 81, kg, PRN Blood Glucose Results, Start date: 06/30/19 5:07:00 FOOD CRITIC, Duration: 30 day, Stop date: 07/30/19 5:06:00 FOOD CRITIC, 0 Ondansetron 2018-08 No Notes: Abdifatah tesfaye -08 (Same as: l 11:07: Zofran) MEDICATION WASTE Product Size: 4 mg Product Wasted: ___ mg Acetaminoph 2018-08 No Notes: Do M emoria en 08-30 not exceed l 11:07: 4 gm/day. Eduardo 00 (Same as: Tylenol) Morphine 2018-08 No 4 mg, Memoria 08-30 Route: l 10:58: IVP, ONCE, Dosing Weight 81, kg, Priority: STAT, Start date: 06/30/19 4:58:00 FOOD CRITIC, Stop date: 06/30/19 4:58:00 FOOD CRITIC Iohexol 2018-08 No 100 mL, Memoria 08-30 Route: l 03:34: IVP, Drug Form: SOLN, Dosing Weight 81, kg, ONCALL, STAT, Start date: 06/29/19 21:34:00 FOOD CRITIC, Duration: 1 doses or times, Dose = 2.2ml/kg, Max dose = 100ml -- "To be infused by Radiology Staff ONLY" Morphine 2018-08 No Notes: Memoria 08-30 (Same l 03:04: as:MORPhin e Sulfate) Saline 2018-08 No Notes: Memoria Flush 0.9% 08-30 (Same as: l 02:26: BD Eduardo Posiflush) insulin Yes 10 unit, Memori a isophane 6- SUB-Q, l human 16:28: [id number], 0 Jaya n recombinant 00 Refill(s) 100 units/mL subcutaneou s injection Metformin Yes 500 mg = 1 Me moria hydrochlori 6-26 tab, PO, l de 500 MG 16:28: BID, 0 Jaya n Oral Tablet 00 Refill(s) lansoprazol Yes NJ, QPM, 0 Memoria e 30 mg 02-15 Refill(s) l oral 16:28: Nice tablet, 00 disintegrat ing docusate Yes 100 mg = Memor ia sodium 150 6- 10 mL, PO, l mg/15 mL 16:28: Q12H, 0 Jaya n oral liquid 00 Refill(s) carvedilol Yes 12.5 mg = Me moria 12.5 mg 626 1 tab, PO, l oral tablet 16:28: Q12H, 0 Her wilcox 00 Refill(s) Aspirin Yes 325 mg = 1 Abdifatah tesfaye 6-26 tab, NJ, l 16:28: Daily, 0 Nice 00 Refill(s) Insulin, No Notes: Memoria Aspart, 6- Roll in l Human 02:19: palms of hands gently; Do not shake vigorously . (Same as: NovoLOG) "single patient use only" Stable for 28 days at room temperatur e. Expires in days from ____Date Glucagon No 1 mg, Memoria 6-26 Route: IM, l 02:19: Drug form: Eduardo 00 PDR/INJ, PRN, Dosing Weight 145.455, kg, PRN Blood Glucose Results, Start date: 02/14/15 21:19:00, Duration: 30 day, Stop date: 03/16/15 21:18:00 Dextrose No 25 gm, 50 Abdifatah tesfaye 50% Syringe 6-26 mL, Route: l 02:19: IVP, Drug Form: INJ, Dosing Weight 145.455, kg, PRN, PRN Blood Glucose Results, Start date: 02/14/15 21:19:00, Duration: 30 day, Stop date: 03/16/15 21:18:00 Metformin No Notes: Memori a hydrochlori -25 (Same as: l de 500 MG 17:00: Glucophage Oral Tablet 00 ) Take with meal Sodium No IVPB, 250 Memori a Chloride 6-25 ml/hr, l 0.45% IV 16:00: Q12H, Start date: 02/14/15 11:00:00, Duration: 30, 500 ml 1/2 NS 500 No 500 mL, Abdifatah tesfaye mL 25 Rate: 250 l 15:28: ml/hr, Infuse over: 2 hr, Route: IV, Dosing Weight 145.455 kg, Total Volume: 500, Start date: 02/14/15 10:28:00, Duration: 30 day, Stop date: 03/16/15 10:27:00 Coreg No Notes: Memoria 6-25 Give with l 14:00: food. Nice (Same As: Coreg) Prinivil No Notes: Memoria 6-24 (Same as: l 14:20: Prinivil, Zestril) Insulin, No Notes: Memoria Aspart, 6-24 Roll in l Human 12:30: palms of hands gently; Do not shake vigorously . (Same as: NovoLOG) "single patient use only" Stable for 28 days at room temperatur e. Expires in days from ____Date insulin No 5 unit, Memoria isophane-[employer] 6-23 0.05 mL, l H 23:21: Route: SUB-Q, Drug form: INJ, ONCE, Dosing Weight 145.455, kg, Priority: NOW, Start date: 02/12/15 18:21:00, Stop date: 02/12/15 18:21:00 Novolin N No 10 unit, Abdifatah tesfaye 6-23 0.1 mL, l 23:00: Route: SUB-Q, Drug form: INJ, [id number], Dosing Weight 145.455, kg, Start date: 02/12/15 18:00:00, Duration: 30 day, Stop date: 03/14/15 6:00:00 Calmoseptin No Notes: Abdifatah tesfaye e 6-21 (Same as: l 14:59: Calmosepti ne) Levaquin No 500 mg, 1 Abdifatah tesfaye 6-21 tab, l 12:25: Route: PO, Drug form: TAB, [id number], Dosing Weight 145.455, kg, Priority: NOW, Start date: 02/10/15 7:25:00, Duration: 5 day, Stop date: 02/14/15 7:25:00 metoprolol No Notes: Memor ia tartrate 6-20 (Same as: l 21:49: Lopressor) Plavix No Notes: Memoria 6-20 (Same As: l 19:01: Plavix) Keflex No Notes: Memoria 6-20 Take on l 17:00: empty stomach. (Same As: Keflex) Lisinopril No Notes: Memor ia 6-20 (Same as: l 15:59: Prinivil, Zestril) metoprolol No Notes: Memor ia tartrate 6-20 (Same as: l 15:44: Lopressor) Aspirin No Notes: Memoria 6-20 Take with l 14:00: food. Lasix No Notes: Memoria 6-20 (Same as: l 11:57: Lasix) MEDICATION WASTE Product Size: 40 mg Product Wasted: ___ mg Prevacid No Notes: Memoria 6-19 Take 1 l 22:00: hour before or 2 hours after meal; Expires in 14 days. Shake well before use. (Same as:Prevaci d) Compound ed Product - formulatio n not commercial ly available* * Albuterol No Notes: SEE Me moria 0.83 MG/ML 6-19 RT l Inhalant 17:13: DOCUMENTAT Her wilcox Solution 00 ION (Same as: Proventil) aspirin No Notes: Memoria 6-19 Refrigerat l 16:30: e. Ketorolac No Notes: Memori a 6-18 (Same l 23:00: as:Toradol ) Docusate No Notes: Memoria 6-18 (Same as: l 22:00: Colace) Furosemide Yes 20 mg = 1 Me moria 20 MG Oral 6-18 tab, PO, l Tablet 19:33: TID, # 90 Jaya n [Lasix] 00 tab, 0 Refill(s) lisinopril Yes 10 mg = 1 Me moria 10 mg oral 6-18 tab, PO, l tablet 19:33: Daily, # Nice 00 30 tab, 0 Refill(s) metoprolol No 50 mg = 1 Me moria tartrate 50 6-18 tab, PO, l mg oral 19:33: BID, # 60 Didi nn tablet 00 tab, 0 Refill(s) Advair No 1 puff, Memoria Diskus 250 6-18 INHALATION l mcg-50 mcg 19:33: , BID, # Her wilcox inhalation 00 60 puff, 0 powder Refill(s) NPH No 36 unit, Memoria Insulin, 6-18 SUB-Q, l Human 100 19:33: Daily, # James kincaid UNT/ML 00 10 ml, 0 Injectable Refill(s) Suspension [Novolin N] clopidogrel Yes 75 mg = 1 M emoria 75 MG Oral 6-18 tab, PO, l Tablet 19:33: Daily, Nina Clark [Plavix] 00 90 tab, 0 Refill(s) isosorbide No 30 mg = 1 Me moria mononitrate 6-18 tab, PO, l 30 mg oral 19:33: BID, # 90 Pradip rmsanjiv tablet, 00 tab, 0 extended Refill(s) release Potassium No 20 mEq = 1 Me moria Chloride 20 6-18 tab, PO, l MEQ 19:33: Daily, Nina Clark Extended 00 30 tab, 3 Release Refill(s) Tablet omeprazole No 40 mg = 1 Me moria 40 mg oral 6-18 cap, PO, l delayed 19:33: Daily, # Jaya n release 00 30 cap, 0 capsule Refill(s) atorvastati Yes 10 mg = 1 M emoria n 10 MG 6-18 tab, PO, l Oral Tablet 19:33: Bedtime, Nina Clark [Lipitor] 00 90 tab, 0 Refill(s) Amlodipine No 5 mg = 1 Mem oria 5 MG Oral 6-18 tab, PO, l Tablet 19:33: Daily, Nina Clark [Norvasc] 00 30 tab, 0 Refill(s) aspirin No Notes: Memoria 6-18 Refrigerat l 16:15: e. Eduardo Aspirin No 300 mg, Memoria 18 Route: PA, l 16:13: Drug form: Eduardo 00 SUPP, Daily, Dosing Weight 145.455, kg, Priority: STAT, Start date: 02/07/15 11:13:00, Duration: 30 day, Stop date: 03/09/15 9:00:00 Aspirin 325 No Notes: Abdifatah tesfaye MG Enteric -18 Take with l Coated 14:00: food. Nice Tablet 00 Rocephin No Notes: Memoria 6-18 (Same As: l 13:00: Rocephin). Eduardo 00 Use with 100ml NS mini-bag PLUS and infuse over 30 min MEDICATION WASTE Product Size: 1000 mg Product Wasted: ___ mg Furosemide No Notes: Memor ia 40 MG Oral 6-18 (Same as: l Tablet 12:00: Lasix) Eduardo [Lasix] 00 May cause GI upset. Give with food or milk. iodixanol No Special Memor ia 6-18 Instructio l 08:21: ns: Dose = Nice 00 2.2ml/kg, Max dose = 100ml -- "To be infused by Radiology Staff ONLY" Ofirmev 325 No Notes: Abdifatah tesfaye mg + empty -18 Infuse l container 1 03:33: over 15 Her wilcox bag 00 minutes Do not exceed 4gm/day of acetaminop hen MEDICATION WASTE Product Size: 1000 mg Product Wasted: ___ mg Tylenol No Notes: Memoria 6-18 Infuse l 02:54: over 15 Nice 00 minutes Do not exceed 4gm/day of acetaminop hen MEDICATION WASTE Product Size: 1000 mg Product Wasted: ___ mg Lipitor No Notes: Memoria 6-18 (Same As: l 02:00: Lipitor) Nice Docusate No Notes: Memoria 6-18 (Same as: l 02:00: Colace) Nice Labetalol No 10 mg, 2 Abdifatah tesfaye 6-17 mL, Route: l 23:05: IVP, Drug form: INJ, Q15Min, Dosing Weight 145.455, kg, PRN Hypertensi on, Start date: 02/06/15 18:05:00, Stop date: 03/08/15 18:04:00 Hydralazine No Notes: Abdifatah tesfaye 6-17 (Same as: l 23:05: Apresoline ) Push over 5 minutes Nicardipine No Notes: Abdifatah tesfaye 6-17 Same as: l 23:05: Cardene Concentrat ion: (0.2 mg /1 ml ) aspirin No Notes: Memoria 6-17 Refrigerat l 23:00: e. Albuterol No Notes: Memori a 0.833 MG/ML 02-06 (Same as: l / 22:27: Duoneb) Ipratropium [place] 0.167 MG/ML Inhalant Solution [DuoNeb] Regular No 60 Memoria Insulin, 6-17 units) l Human 100 22:26: Stable for He rmann UNT/ML 00 28 days at Injectable room Solution temperatur e Expires in days from ____Date Dextrose No 25 gm, 50 Abdifatah tesfaye 50% Syringe 6-17 mL, Route: l 22:26: IVP, Drug Form: INJ, Dosing Weight 145.455, kg, PRN, PRN Abnormal Lab Result, Start date: 02/06/15 17:26:00, Duration: 30 day, Stop date: 03/08/15 17:25:00 Enoxaparin No Notes: Memor ia 02-06 (Same as: l 22:00: Lovenox) Acetaminoph No Notes: Do M emoria en 02-06 not exceed l 20:54: 4 gm/day. (Same as: Tylenol) Labetalol No 105 mmHg, Me moria 02-06 Priority: l 20:54: Routine, Start date: 02/06/15 15:54:00, Duration: 30 day, Stop date: 03/08/15 15:53:00 Nicardipine No Notes: Abdifatah tesfaye 17 Same as: l 20:54: Cardene Concentrat ion: (0.2 mg /1 ml ) Sodium No 1,000 mL, Memori a Chloride 02-06 Rate: 40 l 0.154 20:54: ml/hr, Eduardo MEQ/ML 00 Infuse Injectable over: 25 Solution hr, Route: IV, Dosing Weight 125.455 kg, Total Volume: 1,000, Start date: 02/06/15 15:54:00, Stop date: 03/08/15 15:53:00 Furosemide Furosemide Yes Q0.5D TAKE 1 Univers 20 MG Oral 20 MG Oral TABLET i ty of Tablet Tablet TWICE [place] DAILY Physici ans Lisinopril Lisinopril Yes 1 QD TAKE 1 U nivers 10 MG Oral 10 MG Oral TABLET i ty of Tablet Tablet DAILY. [place] [facility]ici ans Isosorbide Isosorbide Yes 1 QD TAKE 1 U nivers Mononitrate Mononitrate TABLET ity of 30 MG TB24 30 MG TB24 [place]. [place] [facility] [place] Metoprolol Metoprolol Yes Q0.5D TAKE 1 Univers Tartrate 50 Tartrate 50 TABLET ity of MG Oral MG Oral TWICE [place] Tablet Tablet DAILY Physici ans Klor-Con Klor-Con Yes QD TAKE 2 Unive rs M20 TBCR M20 TBCR TABLETS ity of DAILY. [place] [facility]ici ans Caduet Caduet Yes 1 QD TAKE 1 Univers 10-10 MG 10-10 MG TABLET ity o f Oral Tablet Oral Tablet DAILY. [place] [facility]ici ans Actos 15 MG Actos 15 MG Yes QD TAKE 1 Univers Oral Tablet Oral Tablet TABLET ity of ONCE [place] DAILY. Physici ans Aggrenox Aggrenox Yes Q0.5D TAKE 1 Univ ers 25-200 MG 25-200 MG CAPSULE it y of Oral Oral TWICE [place] Capsule Capsule DAILY. Physici Extended Extended ans Release 12 Release 12 Hour Hour Omeprazole Omeprazole Yes 1 Q0.5D TAKE 1 Univers 40 MG Oral 40 MG Oral CAPSULE ity of Capsule Capsule TWICE [place] Delayed Delayed DAILY Physici Release Release ans Vital Signs Vital Name Observation Time Observation Value Comments Source Systolic (mm Hg) 2019-07-06 19:20:00 Abdifatah rial Eduardo Diastolic (mm Hg) 2019-07-06 19:20:00 Mem orial Nice Respitory Rate 2019-07-06 19:20:00 Memori al Eduardo Respitory Rate 2019-07-06 16:00:00 Memori al [place] Systolic (mm Hg) 2019-07-06 16:00:00 Abdifatah rial Eduardo Diastolic (mm Hg) 2019-07-06 16:00:00 Mem orial Eduardo Respitory Rate 2019-07-06 14:00:00 Memori al Eduardo Systolic (mm Hg) 2019-07-06 14:00:00 Abdifatah rial Nice Diastolic (mm Hg) 2019-07-06 14:00:00 Mem orial Nice Temperature Oral (F) 2019-07-06 09:40:00 98.5 F [facility] Eduardo Temperature Oral (F) 2019-07-06 05:25:00 98.1 F [facility] [place] Temperature Oral (F) 2019-07-06 01:51:00 98.3 F [facility] Eduardo Heart Rate 2019-07-01 14:07:00 [facility] [place] Heart Rate 2019-07-01 10:04:00 [facility] [place] Heart Rate 2019-07-01 05:10:00 [facility] Height 2019-07-01 00:25:00 172.72 cm [facility] Weight 2019-07-01 00:25:00 [facility] Eduardo BMI Calculated 2019-07-01 00:25:00 Memori al Eduardo Height 2019-06-30 01:23:00 167.64 cm [facility] Eduardo BMI Calculated 2019-06-30 01:23:00 [facility] al Eduardo Weight 2019-06-30 01:23:00 [facility] [place] Systolic (mm Hg) 2015-02-15 16:25:00 Abdifatah rial Eduardo Diastolic (mm Hg) 2015-02-15 16:25:00 Mem orial Nice Respitory Rate 2015-02-15 16:25:00 Memori al Eduardo Heart Rate 2015-02-15 16:25:00 [facility] Eduardo Temperature Oral (F) 2015-02-15 16:25:00 98.2 F [facility] Eduardo Respitory Rate 2015-02-15 14:37:00 Memori al [place] Systolic (mm Hg) 2015-02-15 13:04:00 Abdifatah rial Eduardo Diastolic (mm Hg) 2015-02-15 13:04:00 Mem orial Nice Temperature Oral (F) 2015-02-15 13:04:00 98.2 F [facility] [place] Heart Rate 2015-02-15 13:04:00 [facility] [place] Respitory Rate 2015-02-15 13:04:00 Memori al [place] Heart Rate 2015-02-15 08:59:00 [facility] [place] Temperature Oral (F) 2015-02-15 08:59:00 98 F [facility] Nice Systolic (mm Hg) 2015-02-15 08:59:00 Abdifatah rial Eduardo Diastolic (mm Hg) 2015-02-15 08:59:00 [facility] orial Eduardo Height 2015-02-06 20:55:00 170.18 cm [facility] Eduardo Weight 2015-02-06 20:55:00 [facility] Nice BMI Calculated 2015-02-06 20:55:00 Fernanda Lyons Procedures Procedure Date / Time Performing Clinician Source Performed [U] XRAY FEMUR 2 VWS RIGHT 2019-08-25 00:00:00 [facility] [id number] Physicians [U] XRAY FEMUR 2 VWS RIGHT 2019-07-28 00:00:00 U [facility] [address] Physicians History of Tubal Ligation Univer [facility] Physicians History of Hysterectomy [facility] Physicians History of Cholecystectomy [facility] Physicians Encounters Start End Encounter Admission Attending Care Care Encounter Source Date/Time Date/Time Type Type Clinicians Facility Department ID 2019-09-07 2019-09-07 Appointmen ANTONETTE VALDIVIA Orthopedics [id number] Univers 10:15:00 10:15:00 t; PILAR VALDIVIA Trauma it Emma M.D. [facility] 2019-08-03 2019-08-03 Appointmen ANTONETTE VALDIVIA Orthopedics [id number] Univers 10:00:00 10:00:00 t; PILAR VALDIVIA Trauma it Emma M.D. [facility] 2019-06-29 2019-07-[address] [facility] [id number] 19:22:27 13:10:00 Tiana 00 Rose 2019-07-01 2019-06-30 Inpatient [id number] 08:29:00 09:39:00 2015-02-06 2015-02-15 [place] [id number] 15:43:00 15:01:00 Lynette Gama Results Test Description Test Time Test Comments Results Result Sour e Comments [U] XRAY FEMUR 2 2019-08-03 Images Universi ty of VWS RIGHT [id number] 11:58:00 acquired, not [place] reported on Physicians this accession number. CHEM PANEL 2019-07-06 219 [facility] 10:03:00 Eduardo CHEM PANEL 2019-07-06 22 [facility] 10:03:00 Eduardo CHEM PANEL 2019-07-06 0.58 [facility] 10:03:00 Eduardo CHEM PANEL 2019-07-06 141 [facility] 10:03:00 Nice CHEM PANEL 2019-07-06 3.3 [facility] 10:03:00 Nice CHEM PANEL 2019-07-06 106 [facility] 10:03:00 Nice CHEM PANEL 2019-07-06 31 [facility] 10:03:00 Nice CHEM PANEL 2019-07-06 7.3 [facility] 10:03:00 Eduardo CHEM PANEL 2019-07-06 8.4 [facility] 10:03:00 Eduardo CHEM PANEL 2019-07-06 88 [facility] 10:03:00 Eduardo HEMATOLOGY 2019-07-06 8.4 [facility] 10:03:00 Eduardo HEMATOLOGY 2019-07-06 2.92 [facility] 10:03:00 Eduardo HEMATOLOGY 2019-07-06 9.2 [facility] 10:03:00 Eduardo HEMATOLOGY 2019-07-06 27.7 [facility] 10:03:00 Nice HEMATOLOGY 2019-07-06 94.7 [facility] 10:03:00 Nice HEMATOLOGY 2019-07-06 10:03:00 Test Item Value Reference Range Interpretation Comme nts MCH (test code = MCH) 31.6 pg 27.0-31.0 Memorial XxevnqxLHUFRCYATW8895-35-25 10:03:0033.3[facility] HermannHEMATOLOGY 2019-07-06 10:03:0013.8[facility] PeddioxORTLKQVCTD3845-91-79 10:03:76311Xjrvcppu OzcznorLUNPIQHNQS7358-69-32 10:03:009.4[facility] AkopokqGSDHMZHUOV1193-17-44 10:03:0065.8[facility] AwisfufBCZHOAKITP1357-76-46 10:03:0019.3[facility] Nice DCSCMAHCYE1884-64-23 10:03:006.8[facility] JfqdxpoCZMXOCTXMM4493-32-58 10:03:007.2 [facility] HocogihYWKCYKVSWV8120-93-09 10:03:000.9[facility] HermannHEMATOLOGY 2019-07-06 10:03:005.5[facility] JogewxsSODFDXUEPP6972-60-02 10:03:001.6[facility] MsdyewdGHAUBDHBLO7828-45-22 10:03:000.6[facility] CnurltbNODREBQJJE7644-93-21 10:03:000.6[facility] WbcpfsnPKGRXZFECJ3051-14-28 10:03:000.1[facility] HermannCHEM FHFON7905-82-39 11:55:33339Ogqeujho HermannCHEM SSOVV6760-61-08 11:55:0026 [facility] HermannCHEM LLCEN4929-30-12 11:55:000.86[facility] HermannCHEM PANEL 2019-07-05 11:55:97955Hnggaqvj HermannCHEM WEFEV5209-36-39 11:55:004.4[facility] HermannCHEM CZCYS2790-65-31 11:55:62780Sfuzurob HermannCHEM XUAGQ5377-51-60 11:55:0027[facility] HermannCHEM EEHYF4939-56-14 11:55:008.5[facility] HermannCHEM YZFNS3128-89-53 11:55:0064[facility] HermannCHEM NPLBW1275-15-14 11:55:0010.4 [facility] TuhuviwTQMPJSBASD2835-54-85 11:55:00Normal (07/05/19 5:55 AM)[facility] JophlqvAXNEWSHYHH0538-66-54 11:55:00Normal (07/05/19 5:55 AM)[facility] Nice GYUVEZOOZD6053-49-28 11:55:0067.1[facility] YujtylbMXBRXXJWGZ2267-15-43 11:55:00 16.3[facility] RhiozltPTVTJCZKGS2368-51-85 11:55:006.7[facility] HermannHEMATOLOGY 2019-07-05 11:55:008.7[facility] SqqxgslAGPGVKKBSZ7037-37-32 11:55:001.2[facility] LlgzmkbAHWQMUKVNN1717-64-19 11:55:005.0[facility] AwbghfkXQAIXXAGMG5167-23-35 11:55:001.2[facility] DqoqzfjDZYNMLFPWH7050-31-58 11:55:000.5[facility] Eduardo APXHQWCTLJ3647-23-34 11:55:000.6[facility] GiyspaiJDHFNIVVHU5530-32-76 11:55:000.1 [facility] QsgysanPBENNPWHSW8526-32-31 11:55:007.4[facility] HermannHEMATOLOGY 2019-07-05 11:55:002.79[facility] RaxxmzhUTOUGPETTY1178-11-67 11:55:008.9[facility] ZqegmpcXYMAZYLTQP4388-14-20 11:55:0026.8[facility] MxsssdyITEUDOYRXU7705-42-95 11:55:0096.1[facility] PtipftkRDXNFQIYTI8300-02-57 11:55:00 Test Item Value Reference Range Interpretation Comments MCH (test code = MCH) 31.8 pg 27.0-31.0 [facility] EtyilhqKTUOQOCSQS3171-19-75 11:55:0033.1[facility] HermannHEMATOLOGY 2019-07-05 11:55:0014.0[facility] XulgcocXCYQEKZIDK5288-86-66 11:55:14690Ampyufzx YxhunocKYRJHJBEIN7714-68-59 11:55:009.9[facility] HermannCHEM DGUFR0476-35-15 09:01:76569Fggxnvzh HermannCHEM IUMDA1175-66-41 09:01:0026[facility] HermannCHEM HRKNN0202-81-17 09:01:000.67[facility] HermannCHEM ILJEY2038-13-39 09:01:05652 [facility]annCHEM XGBCX3007-17-33 09:01:004.2[facility] HermannCHEM PANEL 2019-07-04 09:01:62571Ixuphtgv HermannCHEM JNCRY2402-20-87 09:01:0026[facility]annCHEM GVKFV2300-28-28 09:01:008.7[facility] HermannCHEM JZCWH8385-31-16 09:01:0083[facility] HermannCHEM FXVXW5126-51-12 09:01:0011.2[facility] Eduardo FQXTPQOXXD8628-41-19 09:01:009.6[facility] YohjrnuHGQPDUXRQR7673-29-62 09:01:00 3.49[facility] BllfnyxHYRSBUSXTI2097-93-11 09:01:0010.9[facility] HermannHEMATOLOGY 2019-07-04 09:01:0033.6[facility] PpbkxsdMXHDRDOCHC8343-35-40 09:01:0096.2[facility] SkqvteuJMWQZZTTQP0655-83-77 09:01:00 Test Item Value Reference Range Interpretation Comments MCH (test code = MCH) 31.3 pg 27.0-31.0 [facility] MmqojtiBBTFLLYECD5441-53-20 09:01:0032.6[facility] HermannHEMATOLOGY 2019-07-04 09:01:0013.9[facility] JgsfgldYIXLOLCGBW5238-25-33 09:01:65659Nxyxfqhi SfzoofjTLZLJNRCBN4118-15-28 09:01:0010.0[facility] BcifufsXTTCYUERDE8577-54-88 09:01:0085.5[facility] CdzahyhWDVKOIZGTH1254-10-49 09:01:007.4[facility] Eduardo QVQUGLVEGU7290-57-11 09:01:006.2[facility] TquxwjsTYKDOOEUFM3803-75-48 09:01:000.5 [facility] HvdwmrqBTDHJLFFAD3044-02-65 09:01:000.4[facility] HermannHEMATOLOGY 2019-07-04 09:01:008.2[facility] ZpxaogbNOSEYEGJHM4702-67-81 09:01:000.7[facility] YktbpbrIPNYIPSGRJ9552-65-46 09:01:000.6[facility] OtgcbgkDAJQCSFCSH8664-08-64 22:48:00See Note 5(07/03/19 4:48 PM)[facility] LyynmqrUCFYCJPMGT5949-64-99 22:48:00xxxxxxx 4(07/03/19 4:48 PM)[facility] CyppaqoHIVCQFLBMT3971-85-94 22:48:00 Test Item Value Reference Range Interpretation Comments INR (test code = INR) 0.96 1 0.85-1.17 [facility] ZGYOLVE4599-72-31 12:29:00Negative (07/03/19 6:29 AM) [facility] AiwzgvcKCKHTVXEJF2551-29-23 09:24:000.6[facility] HermannHEMATOLOGY 2019-07-03 09:24:000.1[facility] HermannCHEM EOPNC5258-00-96 12:57:003.3[facility] HermannCHEM CZOHN9498-40-22 12:57:001.5[facility] KodkdbxKKYWVVOJXM9137-16-32 12:57:00 Test Item Value Reference Range Interpretation Comments PTT (test code = PTT) 34.1 s 22.9-35.8 [facility] CzkjlxyNHBAYGMYHQ1819-20-92 12:57:00 Test Item Value Reference Range Interpretation Comments PT (test code = PT) 16.0 s 12.0-14.7 [facility] FrhxaneQJXFATESZT8251-38-74 12:57:00 Test Item Value Reference Range Interpretation Comments INR (test code = INR) 1.31 1 0.85-1.17 [facility] CCBES7202-26-67 12:57:00Yellow *NA*(06/30/19 6:57 AM) [facility] PJKZH2447-91-71 12:57:00Slight *ABN*(06/30/19 6:57 AM) [facility] IKNLJ6250-15-22 12:57:00 Test Item Value Reference Range Interpretation Comments UA Spec Grav (test code = UA Spec 1.060 1 Grav) [facility] GYZSK8788-98-53 12:57:00 Test Item Value Reference Range Interpretation Comments UA pH (test code = UA pH) 5.0 1 5.0-8.0 [facility] ICCDX3470-30-61 12:57:00Negative (06/30/19 6:57 AM) [facility] PBPRC3521-90-12 12:57:00Negative *NA*(06/30/19 6:57 AM) [facility] JGTFL7782-83-63 12:57:00Trace *ABN*(06/30/19 6:57 AM) [facility] XZNJB9455-35-92 12:57:00Negative *NA*(06/30/19 6:57 AM) [facility] EMGGJ2038-94-79 12:57:00Negative (06/30/19 6:57 AM) [facility] PZYUU7578-92-25 12:57:00<1.0[facility] AND DDKFQ7160-38-54 12:57:00Positive *ABN*(06/30/19 6:57 AM)[facility] SMZZM3583-69-45 12:57:00Small *ABN*(06/30/19 6:57 AM)[facility] AYQJR1878-52-99 12:57:00Performed (06/30/19 6:57 AM)[facility] QDFKD1902-13-26 12:57:0020[facility] KUILM4371-31-22 12:57:002 [facility] QjbdmzjEREQUPJJEM5461-43-42 05:52:00 Test Item Value Reference Range Interpretation Comments ACT (TEG) Rapid (test code = ACT (TEG) 105 s 86-118 Rapid) [facility]mq[facility]yAWILOHFAUS4201-[facility] 05:52:00 Test Item Value Reference Range Interpretation Comments Split Point Rapid (test code = Split 0.5 min Point Rapid) [facility] JwihgukCVBCBVCQCL3504-95-03 05:52:00 Test Item Value Reference Range Interpretation Comments R-time Rapid (test code = R-time 0.6 min 0.4-0.7 Rapid) [facility] WqbgiknTPWVUCRFGH2671-76-00 05:52:00 Test Item Value Reference Range Interpretation Comments K-time Rapid (test code = K-time 1.2 min 0.6-2.3 Rapid) [facility] CenterBbaijaqIOEAJQQUVC3996-87-42 05:52:00 Test Item Value Reference Range Interpretation Comments Angle Rapid (test code = Angle 76 degrees 64-80 Rapid) [facility] JknuobeMNDMLCWSFP0839-66-28 05:52:00 Test Item Value Reference Range Interpretation Comments Max Amplitude Rapid (test code = Max 64 mm 52-71 Amplitude Rapid) [facility] YknrfrbNRILIRMNEE9404-78-76 05:52:008.7[facility] HermannHEMATOLOGY 2019-06-30 05:52:000.0[facility] HermannCHEM WPWDL7752-85-13 03:20:001.5[facility] CxgjmklBHZBZQHPTU3435-01-24 03:20:00 Test Item Value Reference Range Interpretation Comments PT (test code = PT) 14.7 s 12.0-14.7 [facility] WginufiGHARHUVHTA6796-31-09 03:20:00 Test Item Value Reference Range Interpretation Comments INR (test code = INR) 1.17 1 0.85-1.17 [facility] VxuqxhiHFZVHXNBSL6217-62-98 03:20:00 Test Item Value Reference Range Interpretation Comments PTT (test code = PTT) 36.2 s 22.9-35.8 [facility] FvvxhfwHYPHCTVFDWQG3072-30-31 14:08:0013.0[facility] HermannELECTROLYTES 2015-02-15 14:08:0055[facility] GlkmvkoRQJHHERXQVHG1145-44-00 14:08:23850Aaxsidmg EkhfdawRZSSNCGAHVVV0289-88-56 14:08:0016[facility] ZohzignNXNWWBEGOYJF2434-38-44 14:08:008.8[facility] KmhwfrgIJVSMFDVIFUI1703-10-65 14:08:15893Iezhbhgo Eduardo FDBKDYOELFAR6565-03-03 14:08:0029[facility] AvhxhbrGFYRWNNABEDV5287-07-86 14:08:00 144[facility] SouinxjJRSJBMADVLNV0968-54-11 14:08:004.0[facility]ardo SKFYZMQBVBNG6798-12-24 14:08:001.0[facility] SihenjgWQPYWVWRLC3662-73-97 14:08:00 10.1[facility] GaxmesuJQEOUHLODM2585-14-73 14:08:96443Kwjybegs HermannHEMATOLOGY 2015-02-15 14:08:0094.7[facility] IiytmlvZQZWPOIZRD9653-69-95 14:08:00 Test Item Value Reference Range Interpretation Comments MCH (test code = MCH) 30.3 pg 27.0-31.0 [facility] OswyyumQUMGLXKSDO8055-38-34 14:08:0032.0[facility] HermannHEMATOLOGY 2015-02-15 14:08:0013.7[facility] ObuapihKNQKSKGKQF3208-06-22 14:08:003.86[facility] PclftmsCKYBTYWDJK2693-90-36 14:08:0011.7[facility] NfzndxtSARGKJCQBI6214-39-79 14:08:008.3[facility] OygvgqoRIHKHHCJVJ3116-63-12 14:08:0036.5[facility] HermannCHEM BJFBO0525-90-69 09:32:0049[facility] HermannCHEM OZALE0567-68-23 09:32:002.9 [facility] HermannCHEM LFTQO2714-52-06 09:32:001.1[facility] HermannCHEM PANEL 2015-02-13 09:32:000.6[facility] HermannCHEM QYGQP9123-87-34 09:32:0067[facility] HermannCHEM PJHJH0535-45-19 09:32:0025[facility] HermannCHEM XDHFN5659-26-97 09:32:0020[facility] HermannCHEM IMIPD0589-80-27 09:32:009.4[facility] HermannCHEM GZAIT0847-72-50 09:32:006.4[facility] HermannCHEM YBMOG8988-70-80 09:32:45264 [facility]annCHEM BPGUJ5553-99-68 09:32:0021[facility] HermannCHEM PANEL 2015-02-13 09:32:0030[facility] HermannCHEM TLRCG5077-45-93 09:32:49830Jwbeyksm HermannCHEM YYMMS4029-75-37 09:32:003.8[facility] HermannCHEM RNJVI6401-18-15 09:32:75932Qufsdtbl HermannCHEM NNCCG4881-16-78 09:32:0019[facility] HermannCHEM ZLHYG4900-26-28 09:32:0011.8[facility] HermannCHEM SXBFW5699-58-81 09:32:003.5 [facility] HermannCHEM TBQXC7937-09-58 09:32:000.8[facility] HermannCHEM PANEL 2015-02-13 09:32:002.4[facility] HermannCHEM HCVGO2221-46-49 09:32:003.6[facility] ErjtmraSFHOGIOLGB6076-77-99 09:32:001.8[facility] GqwsomvLBMMIXHBRF9754-94-80 09:32:000.8[facility] YoasqmwYEMBMMBYFF7381-59-20 09:32:0023.4[facility] GPNBJHQAJE1464-72-22 09:32:009.8[facility] PrargpsZIFLMLHYPJ3722-44-27 09:32:00 59.0[facility] VkhmpzwIXDDIPCVLE3786-47-86 09:32:000.5[facility] HermannHEMATOLOGY 2015-02-13 09:32:000.1[facility] KvoryiwOBADARTCDB7021-43-40 09:32:006.6[facility] BvjcyvcTSXGDBKPAG8132-98-35 09:32:001.2[facility] DyytbjuHBIAWQYRKI8481-44-48 09:32:004.5[facility] SkzbbskIHLNXZNGGH8841-94-07 09:32:00 Test Item Value Reference Range Interpretation Comments PT (test code = PT) 14.2 s 12.0-14.7 [facility] HqpxuafPJZRSNTRGJ2349-39-00 09:32:001.09[facility] HermannHEMATOLOGY 2015-02-13 09:32:0011.6[facility] VopfqsyDGAOBSHGLR7096-29-25 09:32:0035.9[facility] ZjjrloqHSYLFUDYFE6832-03-12 09:32:0094.9[facility] AdcpqvgXEMNVECFZX6001-05-76 09:32:00 Test Item Value Reference Range Interpretation Comments MCH (test code = MCH) 30.6 pg 27.0-31.0 [facility] XjwojihQOSFZRYILX6640-00-90 09:32:0032.2[facility] HermannHEMATOLOGY 2015-02-13 09:32:0013.5[facility] SyyfypvTCNSTBIXGX5205-37-07 09:32:49831Vacutyaj MwwbraoGIQHYRQEPH0269-63-13 09:32:009.9[facility] LzvcshsHQSHUPTWAC9825-84-66 09:32:007.6[facility] GcgmutxXDTJUDVPVM3252-45-73 09:32:003.79[facility] HermannCHEM OTLRD2455-11-05 07:18:002.4[facility]annCHEM DBABP5409-54-70 07:18:000.8 [facility]annCHEM CVFCH8588-95-59 07:18:003.7[facility]annCHEM PANEL 2015-02-12 07:18:0019[facility]annCHEM KKHXP3717-80-84 07:18:009.6[facility]annCHEM DGQLT0673-62-34 07:18:0044[facility]annCHEM DLWAQ3073-71-55 07:18:0070[facility]annCHEM NRONU8513-52-61 07:18:009.2[facility]annCHEM VFMQS7474-41-33 07:18:000.6[facility]annCHEM HOLJR0659-43-73 07:18:0014 [facility]annCHEM TAXCB0315-38-73 07:18:0014[facility]annCHEM PANEL 2015-02-12 07:18:006.7[facility]annCHEM TGQNR3217-75-14 07:18:003.0[facility]annCHEM BYEJB7442-50-88 07:18:0032[facility]annCHEM DYHSM6707-26-71 07:18:003.6[facility]annCHEM EGRZN5851-99-84 07:18:05811Opuhxrrs HermannCHEM BNRPI6431-11-83 07:18:001.2[facility]annCHEM RPLPU4533-10-55 07:18:67086 [facility]annCHEM FSZRR1882-01-17 07:18:0023[facility]annCHEM PANEL 2015-02-12 07:18:39318Djwvxqwu HermannCHEM TYXRN5177-53-72 07:18:003.1[facility] NrkinpfPMXKVWLIRH1020-91-50 07:18:000.5[facility] ErolfqfCJPJNLCMYD1100-99-46 07:18:000.1[facility] NsieximQJLIGAFGAK3120-65-44 07:18:001.7[facility] ZGHFIAFXXL8751-90-93 07:18:000.7[facility] VhsdnueJBRUPIXBIV2152-17-02 07:18:00 21.0[facility] IjcwxtvWZQMSYZXEO9184-89-07 07:18:009.3[facility] HermannHEMATOLOGY 2015-02-12 07:18:0062.3[facility] TgwsnlgGSIJDHTPRP4045-33-48 07:18:005.0[facility] JqlylokXUJLPALQBE5978-30-25 07:18:006.1[facility] KrtlsrcYRNMYRODHZ8938-61-01 07:18:001.3[facility] NulxfwyFTUGRYYIST8195-65-87 07:18:0037.2[facility] MRRCVQWKIF8941-36-25 07:18:0012.1[facility] LrbjdgvLYCXUSSDDL5608-79-49 07:18:00 94.2[facility] CfqtiqvTQORQQSTSU0597-98-50 07:18:0010.1[facility]annHEMATOLOGY 2015-02-12 07:18:55540Itummgsf EduqvfiZLRBSGMSPR8373-96-44 07:18:0032.6[facility] MpixqoqXOTPMHHXQG9412-91-50 07:18:0013.6[facility] PgviklsYRIDYZBAJW2937-80-57 07:18:00 Test Item Value Reference Range Interpretation Comments MCH (test code = MCH) 30.7 pg 27.0-31.0 [facility] BbqfqauMMNDMNQBDC5823-79-60 07:18:003.95[facility]annHEMATOLOGY 2015-02-12 07:18:008.0[facility] FrvbmfcSUBUOYHEXN5162-59-90 07:18:00 Test Item Value Reference Range Interpretation Comments PT (test code = PT) 13.3 s 12.0-14.7 [facility] ItyrmdcFGFJJVEKNX4275-86-02 07:18:001.01[facility]annCHEM PANEL 2015-02-11 09:17:002.4[facility] HermannCHEM ICBKN3036-42-43 09:17:003.1[facility] AbgcntfXIYXPIDRPS0608-12-33 09:17:001.08[facility] HdorynbLBNQFBXAXG9256-70-32 09:17:00 Test Item Value Reference Range Interpretation Comments PT (test code = PT) 14.1 s 12.0-14.7 [facility] ByhlmigTNUAQRXVNR2621-56-35 09:17:000.5[facility]annHEMATOLOGY 2015-02-11 09:17:000.1[facility] OkjvnexWDJBGTNVGT0198-27-48 09:17:000.7[facility] DrwackuFSLHFBQKZL2376-80-80 09:17:005.2[facility] KuumlxtGREBUCZWRK0993-24-16 09:17:006.5[facility] GyiyrppONNIOSVGZO3923-45-41 09:17:001.4[facility] IYVXRSKLKO6644-56-78 09:17:001.4[facility] ZaqlmqcFDTFAPDJOD5152-88-22 09:17:008.8 [facility] EqxmszlJEUOUVWEGX0959-25-26 09:17:0017.4[facility]annHEMATOLOGY 2015-02-11 09:17:0065.9[facility] HermannTHYROID VPBBS2996-99-90 15:26:002.000 [facility]annCARDIAC FOVQJWD1682-88-14 09:41:06486Mglbaauo HermannURINE AND VSTUC4278-37-74 21:34:007[facility]annURINE AND WIPYG9886-56-68 21:34:001 [facility]UR[facility] AND BLZGZ3132-69-51 21:34:0012[facility]UR[facility] AND AOGSR9704-77-00 21:34:00Small *ABN*(02/06/15 4:34 PM)[facility] QFJTZ6726-57-93 21:34:00Negative (02/06/15 4:34 PM)[facility] OWNDH3253-44-29 21:34:00Negative (02/06/15 4:34 PM)[facility] [facility] [id number] 21:34:00Negative *NA*(02/06/15 4:34 PM)[facility] [id number] 21:34:005.0[facility] [id number] 21:34:00 1.016[facility] [id number] 21:34:00Clear (02/06/15 4:34 PM) [facility] [id number] 21:34:00Yellow *NA*(02/06/15 4:34 PM) [facility] [id number] 21:03:00 Test Item Value Reference Range Interpretation Comments PTT (test code = PTT) 32.0 s 22.9-35.8 [facility] [id number] 21:03:001.75[facility] [id number] 21:03:0016[facility] [id number] 21:03:0031[facility] HermannLIPIDS 2015-02-06 21:03:0081[facility] [id number] 21:03:0063[facility] [id number] 21:03:31639Znruiioo HermannSPECIAL [id number] 21:03:00 5.7[facility]
[2020-03-22] MEDS ORDERED: D50W 25 GM/50 ML SYRINGE/VIAL IV ONE (19:09)
--- NOTE | 2020-03-22 19:09 | EDPHYS ---
Physician Documentation [facility] Name: Zeinab Deluca Age: 80 yrs Sex: Female : 1940 Arrival Date: 03/22/2020 Time: 18:34 Bed 7 Private MD: ED Physician Zoltan Goodson HPI: 03/22 18:39 This 80 yrs old Female presents to ER via Unassigned with complaints of brandyn dyspnea, ams, hypoxia and covid positive. 18:39 The patient has shortness of breath at rest. Onset: The symptoms/episode began/occurred brandyn 5 day(s) ago. The patient's shortness of breath is aggravated by nothing, is alleviated by elevating head, application of supplemental oxygen. Historical: - Allergies: 19:16 Demerol; iw 19:16 Tramadol HCl; iw - PMHx: 19:16 Anxiety; Atrial Fib; Cerebral Atherosclerosis; CHF; chronic kidney disease; CVA; iw Depression; Diabetes - NIDDM; DYSPHAGIA; Hyperlipidemia; Hypertension; schizoaffective disorder; TIA; - Immunization history:: Adult Immunizations unknown. - Family history:: not pertinent. - Social history:: Smoking status: unknown. ROS: 18:42 Unable to obtain ROS due to altered mental status, baseline dementia, patient distress, brandyn patient's inability to understand questions. Exam: 18:42 Constitutional: The patient appears in obvious distress, moderately distressed. brandyn 18:42 Chest/axilla: Inspection: normal, no acute changes. 18:42 Cardiovascular: Rate: normal, Rhythm: regular, Pulses: Pulses are 2+ in bilateral radial, brachial, femoral, popliteal, posterior tibial and and dorsalis pedis arteries.. Heart sounds: normal, JVD: is not appreciated. 18:42 Respiratory: moderate respiratory distress is noted, Respirations: labored breathing, Breath sounds: decreased breath sounds, rhonchi, that are moderate, Respiratory rate: 26 Vital Signs: 18:43 BP 76 / 54; Pulse 109; Resp 37; Pulse Ox 88% ; vc 19:18 BP 77 / 41; Pulse 60; Resp 37 S; Temp 96.6(C); Pulse Ox 89% on Non-rebreather mask; iw 19:30 BP 84 / 41; Pulse 66 MON; Resp 27 S; Temp 97.5; Pulse Ox 93% on 15% Non-rebreather mask;rv 19:45 BP 85 / 46; Pulse 66; Resp 37; Pulse Ox 95% on 15% Non-rebreather mask; rv 20:00 BP 86 / 31; Pulse 65 MON; Resp 35 S; Temp 97.3(C); Pulse Ox 96% on 15% Non-rebreather rv mask; 20:30 Weight 68.04 kg; rv 20:30 BP 84 / 42; Pulse 62 MON; Resp 33 S; Temp 96.9(C); Pulse Ox 93% on 15% Non-rebreather rv mask; 19:30 Paced rv 20:00 Paced rv 20:30 Paced rv Bunny Coma Score: 19:54 Eye Response: to voice(3). Verbal Response: incomprehensible(2). Motor Response: rv localizes pain(5). Total: 10. MDM: 18:35 Patient medically screened. brandyn 18:44 Differential diagnosis: CHF exacerbation, Chronic Obstructive Pulmonary Disease brandyn pneumonia, pulmonary edema, Pulmonary Embolism Sepsis Unstable Angina. Antibiotic administration: zosyn 3.375 gm. Differential Diagnosis altered mental status, sepsis. Differential Diagnosis: CVA, electrolyte abnormality, hypoglycemia, pneumonia, sepsis, UTI, volume depletion. The patient's Wells Deep Vein Thrombosis Score was calculated as follows: Heart Rate >100 BPM (1.5 Pts) Imm/Surg in last 4 wks (1.5 Pts) Total Score: 3-6 Pts - Mod Risk. The patient's pulmonary embolism risk score was calculated as follows: the patients heart rate is greater than 100 beats per minute (1.5 Pts) patient has experienced immobilization or surgery in the last four weeks (1.5 Pts) Total Score: 3-6 points. This patient was found to be at moderate risk for a pulmonary embolism by using the Well's assessment criteria. Immunization status: Pneumococcal vaccine: Influenza vaccine: Data reviewed: vital signs, nurses notes, lab test result(s), EKG, radiologic studies, plain films. Data interpreted: security monitor: rate is 89 beats/min, rhythm is regular, Pulse oximetry: on 95% oxygen by non-rebreather. Test interpretation: by ED physician or midlevel provider: ECG, plain radiologic studies. Counseling: I had a detailed discussion with the patient and/or guardian regarding: the historical points, exam findings, and any diagnostic results supporting the discharge/admit diagnosis, lab results, radiology results, the need for further work-up and treatment in the hospital. 03/22 18:38 Order name: Basic Metabolic Panel [facility] 03/22 18:38 Order name: CBC with Diff [facility] 03/22 18:38 Order name: LFT's [facility] 03/22 18:38 Order name: Magnesium [facility] 03/22 18:38 Order name: NT PRO-BNP [facility] 03/22 18:38 Order name: PT-INR [facility] 03/22 18:38 Order name: Troponin (emerg Dept Use Only) [facility] 03/22 18:38 Order name: Blood Culture Adult (2) [facility] 03/22 18:38 Order name: Urine Culture [facility] 03/22 18:42 Order name: Lactate [facility] 03/22 18:42 Order name: Procalcitonin [facility] 03/22 19:10 Order name: Glucose, Ancillary Testing [facility] 03/22 19:28 Order name: Urine Dipstick--Ancillary (enter results) [facility]3 03/22 19:43 Order name: Urine Microscopic Only 03/22 18:38 Order name: XRAY Chest (1 view) [facility] 03/22 18:38 Order name: EKG; Complete Time: 18:39 [facility] 03/22 18:38 Order name: Cardiac monitoring; Complete Time: 19:03 [facility] 03/22 18:38 Order name: EKG - Nurse/Tech; Complete Time: 19:03 [facility] 03/22 18:38 Order name: IV Saline Lock; Complete Time: 19:03 [facility] 03/22 18:38 Order name: Labs collected and sent; Complete Time: 19:03 [facility] 03/22 19:44 Order name: CONS Pharmacy Consult [facility] 03/22 19:45 Order name: Heart Healthy [facility] 03/22 20:00 Order name: Glucose, Ancillary Testing [facility] 03/22 20:29 Order name: CBC Smear Scan [facility] 03/22 18:38 Order name: O2 Per Protocol; Complete Time: 19:03 [facility] 03/22 18:38 Order name: O2 Sat Monitoring; Complete Time: 19:03 [facility] 03/22 18:38 Order name: Urine Dipstick-Ancillary (obtain specimen); Complete Time: 19:30 [facility] 03/22 18:38 Order name: Roberson; Complete Time: 19:03 [facility] Administered Medications: 19:00 Drug: D50W 50 ml Route: IVP; Site: right wrist; iw 20:45 Follow up: Response: No adverse reaction; Blood sugar is elevated rv 19:13 Not Given (Duplicate Order): D50W 50 ml IVP once; (1 amp) rv 19:28 Drug: NS 0.9% 500 ml Route: IV; Rate: bolus; Site: right forearm; rv 20:30 Follow up: IV Status: Completed infusion rv 19:29 Drug: Zosyn 3.375 grams Route: IVPB; Infused Over: 60 mins; Site: right forearm; rv 20:30 Follow up: Response: No adverse reaction; IV Status: Completed infusion rv 19:29 Drug: NS 0.9% 500 ml Route: IV; Rate: bolus; Site: right forearm; rv 20:30 Follow up: IV Status: Completed infusion; IV Intake: 1000ml rv 19:30 Drug: NS 0.9% 1000 ml Route: IV; Rate: 125 ml/hr; Site: left forearm; rv 20:46 Follow up: IV Status: Infusion continued upon admission rv Point of Care Testing: Blood Glucose: 18:55 Blood Glucose: 42 mg/dL; iw Ranges: Critical Glucose Levels:Adult <50 mg/dl or >400 mg/dl <40 mg/dl or >180 mg/dl Disposition: 03/22/20 19:08 Hospitalization ordered by Kvng Mcadams for Inpatient Admission. Preliminary diagnosis are SARS-associated coronavirus as the cause of diseases classified elsewhere, Altered mental status, unspecified, Hypotension, Hypoxemia, Tachycardia, unspecified, Do not resuscitate, Hypoglycemia, unspecified. - Bed requested for Telemetry/MedSurg (Inpatient). - Status is Inpatient Admission. rv - Condition is Critical. - Problem is an ongoing problem. - Symptoms have worsened. Signatures: Dispatcher [employer] Katharina Plascencia RN RN dw Anderson, Corey, MD MD cha Williams, Irene, RN RN iw Vicente, Ronaldo, RN RN rv Corrections: (The following items were deleted from the chart) 19:20 19:08 Hospitalization Ordered by Kvng Mcadams MD for Inpatient Admission. Preliminary brandyn diagnosis is SARS-associated coronavirus as the cause of diseases classified elsewhere; Altered mental status, unspecified; Hypotension; Hypoxemia; Tachycardia, unspecified; Do not resuscitate. Bed requested for Telemetry/MedSurg (Inpatient). Status is Inpatient Admission. Condition is Critical. Problem is an ongoing problem. Symptoms have worsened. brandyn 20:03 19:20 03/22/2020 19:08 Hospitalization Ordered by Kvng Mcadams MD for Inpatient dw Admission. Preliminary diagnosis is SARS-associated coronavirus as the cause of diseases classified elsewhere; Altered mental status, unspecified; Hypotension; Hypoxemia; Tachycardia, unspecified; Do not resuscitate; Hypoglycemia, unspecified. Bed requested for Telemetry/MedSurg (Inpatient). Status is Inpatient Admission. Condition is Critical. Problem is an ongoing problem. Symptoms have worsened. brandyn 20:46 20:03 03/22/2020 19:08 Hospitalization Ordered by Kvng Mcadams MD for Inpatient rv Admission. Preliminary diagnosis is SARS-associated coronavirus as the cause of diseases classified elsewhere; Altered mental status, unspecified; Hypotension; Hypoxemia; Tachycardia, unspecified; Do not resuscitate; Hypoglycemia, unspecified. Bed requested for Telemetry/MedSurg (Inpatient). Status is Inpatient Admission. Condition is Critical. Problem is an ongoing problem. Symptoms have worsened. dw
--- NOTE | 2020-03-22 19:09 | ER ---
Nurse's Notes [facility] Name: Zeinab Deluca Age: 80 yrs Sex: Female : 1940 Arrival Date: 03/22/2020 Time: 18:34 Bed 7 Private MD: Diagnosis: SARS-associated coronavirus as the cause of diseases classified elsewhere;Altered mental status, unspecified;Hypotension;Hypoxemia;Tachycardia, unspecified;Do not resuscitate;Hypoglycemia, unspecified Presentation: 03/22 18:43 Chief complaint: EMS states: "We were called by [facility], they stated that the vc patients oxygen saturation was in the 60's, when we arrived she was sating in the low 70's, patient was placed on a non rebreather \\T\\ 12 L, oxygen saturarion in the low 90's. Unable to get a blood pressure, patient afebrile with a pulse in the 70's. Coronavirus screen: Client denies travel out of the [place] in the last 14 days. hypoxic Client presents with at least one sign or symptom that may indicate coronavirus-19. Provider contacted for isolation considerations. Patient tested covid positive on March 06. Ebola Screen: No symptoms or risks identified at this time. Initial Sepsis Screen: Does the patient meet any 2 criteria? RR > 20 per min. Systolic BP < 90 mmHg. Mean Arterial Pressure (MAP) < 65. Yes Does the patient have a suspected source of infection? Yes: Productive cough/pneumonia Other: COVID positive. Risk Assessment: Do you want to hurt yourself or someone else? Unable to obtain. Onset of symptoms was March 22, 2020. 18:43 Method Of Arrival: EMS: [facility] vc 18:43 Acuity: NAYELY 2 vc Triage Assessment: 19:35 Respiratory: Reports shortness of breath labored breathing Respiratory effort is rv labored, Respiratory pattern is tachypnea Onset: The symptoms/episode began/occurred the patient has moderate shortness of breath. Historical: - Allergies: 19:16 Demerol; iw 19:16 Tramadol HCl; iw - PMHx: 19:16 Anxiety; Atrial Fib; Cerebral Atherosclerosis; CHF; chronic kidney disease; CVA; iw Depression; Diabetes - NIDDM; DYSPHAGIA; Hyperlipidemia; Hypertension; schizoaffective disorder; TIA; - Immunization history:: Adult Immunizations unknown. - Family history:: not pertinent. - Social history:: Smoking status: unknown. Screenin:19 Abuse screen: Denies threats or abuse. Denies injuries from another. Nutritional iw screening: Difficulty chewing/swallowing? Yes. Tuberculosis screening:. Fall Risk IV access (20 points). Assessment: 19:30 General: Appears ill, Behavior is quiet. Pain: Denies pain. Neuro: Level of rv Consciousness is awake, Oriented to none. Cardiovascular: Rhythm is A-V sequential pacer. Respiratory: Airway is patent Respiratory effort is labored, Breath sounds with rhonchi bilaterally. GI: Abdomen is round non-distended, Bowel sounds present X 4 quads. : Urine is cloudy. Derm: Skin is intact. 19:52 Reassessment: blood sugar increased to 129 after giving 1 amp of dextrose 50 IV. rv patient's son is at the bedside, updated on the plan of care. still hypotensive at this time. ongoing IV bolus of NS. no change in mentation from prior assessment. Vital Signs: 18:43 BP 76 / 54; Pulse 109; Resp 37; Pulse Ox 88% ; vc 19:18 BP 77 / 41; Pulse 60; Resp 37 S; Temp 96.6(C); Pulse Ox 89% on Non-rebreather mask; iw 19:30 BP 84 / 41; Pulse 66 MON; Resp 27 S; Temp 97.5; Pulse Ox 93% on 15% Non-rebreather mask;rv 19:45 BP 85 / 46; Pulse 66; Resp 37; Pulse Ox 95% on 15% Non-rebreather mask; rv 20:00 BP 86 / 31; Pulse 65 MON; Resp 35 S; Temp 97.3(C); Pulse Ox 96% on 15% Non-rebreather rv mask; 20:30 Weight 68.04 kg; rv 20:30 BP 84 / 42; Pulse 62 MON; Resp 33 S; Temp 96.9(C); Pulse Ox 93% on 15% Non-rebreather rv mask; 19:30 Paced rv 20:00 Paced rv 20:30 Paced rv [place] Coma Score: 19:54 Eye Response: to voice(3). Verbal Response: incomprehensible(2). Motor Response: rv localizes pain(5). Total: 10. ED Course: 18:34 Patient arrived in ED. vc 18:35 Zoltan Goodson MD is Attending Physician. brandyn 18:45 Initial lab(s) drawn, by me, sent to lab. First set of blood cultures drawn by me. iw Inserted saline lock: 20 gauge in right wrist, using aseptic technique. 19:01 Triage completed. vc 19:02 Mraek Dejesus, CHUY is Primary Nurse. rv 19:05 Kvng Mcadams MD is Hospitalizing Provider. brandyn 19:17 Roberson cath inserted, using sterile technique, 18 Fr., balloon inflated, to gravity iw drainage, returned cloudy urine. 19:17 Arm band placed on. iw 19:20 XRAY Chest (1 view) In Process Unspecified. EDMS 19:30 Inserted saline lock: 20 gauge in left forearm, using aseptic technique. rv 19:35 Patient has correct armband on for positive identification. Placed in gown. Bed in low rv position. Side rails up X2. teletypesetter monitor on. Pulse ox on. NIBP on. 20:43 No provider procedures requiring assistance completed. IV is patent, with fluids rv infusing freely, with good blood return, Patient admitted, IV remains in place. Administered Medications: 19:00 Drug: D50W 50 ml Route: IVP; Site: right wrist; iw 20:45 Follow up: Response: No adverse reaction; Blood sugar is elevated rv 19:13 Not Given (Duplicate Order): D50W 50 ml IVP once; (1 amp) rv 19:28 Drug: NS 0.9% 500 ml Route: IV; Rate: bolus; Site: right forearm; rv 20:30 Follow up: IV Status: Completed infusion rv 19:29 Drug: Zosyn 3.375 grams Route: IVPB; Infused Over: 60 mins; Site: right forearm; rv 20:30 Follow up: Response: No adverse reaction; IV Status: Completed infusion rv 19:29 Drug: NS 0.9% 500 ml Route: IV; Rate: bolus; Site: right forearm; rv 20:30 Follow up: IV Status: Completed infusion; IV Intake: 1000ml rv 19:30 Drug: NS 0.9% 1000 ml Route: IV; Rate: 125 ml/hr; Site: left forearm; rv 20:46 Follow up: IV Status: Infusion continued upon admission rv Point of Care Testing: Blood Glucose: 18:55 Blood Glucose: 42 mg/dL; iw Ranges: Intake: 20:30 IV: 1000ml; Total: 1000ml. rv Outcome: 19:08 Decision to Hospitalize by Provider. brandyn 20:43 Admitted to Med/surg accompanied by tech, via stretcher, room 418, with oxygen, Report rv called to EMILIA VERA 20:43 Condition: unchanged 20:43 Instructed on the need for admit. 20:46 Patient left the ED. rv Signatures: Dispatcher [employer] Zoltan Haji MD MD cha Williams, Irene RN Marek Rodarte RN RN rv Marleni Alberto RN RN vc Corrections: (The following items were deleted from the chart) 19:22 19:18 BP 77 / 41; Pulse 60bpm; Resp 44bpm; Spontaneous; Pulse Ox 89% Non-rebreather iw mask; Temp 96.6F Catheter; iw
[2020-03-22] MEDS ORDERED: PIPER/TAZO/NS 3.375gm 3.375 GM/100 ML BAG ONE (19:16)
[2020-03-22] MEDS ORDERED: NA CHLORIDE 0.9% 2,000 ML ONE (19:16)
[2020-03-22 19:31] LABS: Urine Blood 2+ (NEG); Urine Glucose NEGATIVE (NEG); Urine Protein 1+ (NEG); Urine pH 5.5 (5.0-7.0)
[2020-03-22 19:37] LABS: Protime INR 3.23
[2020-03-22 19:38] LABS: Absolute Lymphocytes (CBC) 0.6 K/uL (0.7-4.9); Basophils % 0.2 % (0-1.3); Bilirubin Direct 0.5 mg/dL (0-0.2); Bilirubin Total 0.9 mg/dL (0.2-1.0); Hematocrit 36.3 % (36.0-45.0); Lymphocytes % 10.3 % (15.3-44.8); MPV 9.1 fL (7.6-11.3); Potassium 3.2 mmol/L (3.5-5.1); RBC Red Blood Cell Count 3.88 M/uL (3.86-4.86)
[2020-03-22 19:39] LABS: Albumin 1.8 g/dL (3.4-5.0); Troponin (Emerg Dept Use Only) 0.02 ng/mL (0.0-0.045)
[2020-03-22] MEDS ORDERED: ONDANSETRON 4 MG/2 ML VIAL IV PRN (19:42)
[2020-03-22] MEDS ORDERED: MORPHINE 2 MG/ML SYR IV PRN (19:42)
[2020-03-22] MEDS ORDERED: LORazepam 2 MG/ML VIAL IV PRN (19:42)
[2020-03-22] MEDS ORDERED: ACETAMINOPHEN 500 MG TAB PO PRN (19:42)
[2020-03-22] MEDS ORDERED: NA CHLORIDE 0.9% 1,000 ML IV SCH (20:00)
[2020-03-22 20:22] LABS: Urine Bacteria LOADED /HPF (<20); Urine RBC 20-50 /HPF (NONE SEEN)
[2020-03-22 20:23] LABS: Urine Culture Reflex Order NOT NEEDED
--- NOTE | 2020-03-22 20:25 | RAD REPORT ---
EXAM DESCRIPTION: RAD - Chest Single View - 03/22/2020 7:20 pm CLINICAL HISTORY: Cough;Fever;Dyspnea COMPARISON: Portable chest June 2017 TECHNIQUE: AP portable chest image was obtained 03/22/2020 7:20 pm . FINDINGS: Lung volumes are low. Patchy parenchymal opacification present in the lower right lung fie ld and in the mid and lower left lung field. Central vasculature is prominent. Heart size is upper no rmal. Left-sided pacemaker is in place. No measurable pleural effusion and no pneumothorax. No acute bony abnormality seen. No acute aortic findings suspected. IMPRESSION: Heart, vasculature and lung markings are prominent. Patchy lung parenchymal opacificatio n present in the chest as detailed. Mild CHF/ volume overload findings are evident. Given the provided symptoms and the current clinical environment, COVID-19 pneumonia should be consid ered.
[2020-03-22 20:29] LABS: Blood Morphology Comment NOT SEEN (NOT SEEN); Platelet Estimate ADEQ; Urine White Blood Cell Casts OK
[2020-03-22 21:03] VITALS: BP 84/42; TEMP 96.9
[2020-03-22 21:58] VITALS: O2SAT 90
[2020-03-23 02:06] VITALS: BMI 25.0
--- NOTE | 2020-03-23 03:09 | P.HP ---
Certification for Inpatient Patient admitted to: Observation With expected LOS: <2 Midnights Patient will require the following post-hospital care: None Practitioner: I am a practitioner with admitting privileges, knowledge of patient current condition, hospital course, and medical plan of care. Services: Services provided to patient in accordance with Admission requirements found in Title 42 Section 412.3 of the Code of Federal Regulations Patient History Date of Service: 03/22/20 Reason for admission: Respiratory distress History of Present Illness: Patient is an 80-year-old female who is at [facility] and presented to the hospital with shortness of breath. Patient was hypoxic and having difficulty breathing. Patient had worsening mental status. Patient was sent to the hospital for further evaluation. Patient's clinical condition was very poor. She was in shock. Emergency room physician spoke with family and decision was made for comfort measures. At this time will admit patient to the hospital for palliative care. Comfort measures are in place. Allergies meperidine HCl [From Demerol] Allergy (Severe, Verified 07/05/17 05:12) Anaphylaxis tramadol Allergy (Verified 07/05/17 05:12) unknown Tramadol HCl Allergy (Uncoded 07/05/17 05:12) Unknown Home Medications: Acetaminophen [Tylenol*] 650 mg PO Q6HP PRN 07/05/17 Albuterol Sulfate [Albuterol Sulfate 0.083% Neb Soln] 1 vial IH BID PRN 07/05/17 Apixaban [Eliquis] 5 mg PO BID 07/05/17 Divalproex Sodium 4 cap PO BEDTIME 07/05/17 Docusate Sodium 100 mg PO BID 07/05/17 Furosemide [Lasix*] 20 mg PO DAILY 07/05/17 Insulin -Regular Human [Novolin -R*] See Protocol SQ ACHS 07/05/17 Melatonin [Melatonin*] 3 mg PO BEDTIME 07/05/17 Potassium Chloride 20 meq PO DAILY 07/05/17 Sertraline HCl 50 mg PO BEDTIME 07/05/17 carvediloL [Coreg*] 3.125 mg PO BID 07/05/17 Atorvastatin Calcium [Lipitor] 40 mg PO BEDTIME #30 tablet 07/07/17 Memantine HCl [Namenda*] 10 mg PO BID #60 tablet 07/07/17 Ascorbic Acid 500 mg PO BID 06/11/18 Codeine/APAP [Tylenol #3*] 1 tab PO Q12HP PRN 06/11/18 Insulin NPH Human [Novolin N (Humulin N)*] 15 units SQ BEDTIME 06/11/18 Insulin NPH Human [Novolin N (Humulin N)*] 20 units SQ DAILY 06/11/18 Methyl Salicylate/Menthol [Muscle Rub Cream] 35 gm TP Q12H PRN 06/11/18 Morphine Sulfate 10 mg SL Q1H PRN 06/11/18 Promethazine HCl 25 mg PO Q6H PRN 06/11/18 Rivastigmine [Exelon] 1 patch TD DAILY 06/11/18 lisinopriL [Prinivil*] 5 mg PO DAILY #30 tab 06/12/18 - Past Medical/Surgical History Diabetic: Yes -: CHF -: COPD -: Atrial fibrillation with chronic anti coagulation therapy -: Dysphagia -: History of strokes and TIAs -: History of UTIs -: History pacemaker placement -: Diabetes mellitus type 2 -: Schizoaffective disorder -: Chronic constipation -: Chronic renal disease -: Severe dementia -: Tracheostomy -: Cholecystectomy -: previous PEG Psychosocial/ Personal History: Patient is at [place] [facility]. She is DNR. Patient has uqt-pc-sdnrbapo DNR. She has severe dementia. Patient is bed bound. - Social History Smoking Status: Unknown if ever smoked Alcohol use: No CD- Drugs: No Caffeine use: No Review of Systems is unable to be obtained Physical Examination - Vital Signs Temperature: 96.9 F Blood Pressure: 84/42 Pulse: 62 Respirations: 33 Pulse Ox (%): 85 - Physical Exam General: Severe distress, Confused, Unresponsive HEENT: Atraumatic, PERRLA, Mucous membr. moist/pink, EOMI, Sclerae nonicteric Neck: Supple, 2+ carotid pulse no bruit, No LAD, Without JVD or thyroid abnormality Respiratory: Diminished, Expiratory wheezes Cardiovascular: Other (Tachyarrhythmia) Gastrointestinal: Hypoactive, Soft and benign Musculoskeletal: No clubbing, Swelling Integumentary: No rashes, No breakdown Neurological: Other (Patient with dementia and unresponsive. Difficult for examination. Comfort measures in place) Lymphatics: No axilla or inguinal lymphadenopathy - Studies Laboratory Data (last 24 hrs) 03/22/20 18:55: PT 37.3 H, INR 3.23 03/22/20 18:55: WBC 6.1, Hgb 11.9 L, Hct 36.3, Plt Count 282 03/22/20 18:55: Sodium 149 H, Potassium 3.2 L, BUN 29 H, Creatinine 0.88, Glucose 51 L, Magnesium 2.0, Total Bilirubin 0.9, AST 26, ALT 14, Alkaline Phosphatase 230 H Assessment & Plan - Problems (Diagnosis) (1) Respiratory failure Current Visit: Yes Status: Acute (2) COVID-19 Current Visit: Yes Status: Acute (3) Altered mental status Onset Date: 09/01/16 Current Visit: No Status: Acute (4) Atrial fibrillation Onset Date: 06/14/18 Current Visit: No Status: Acute (5) CVA (cerebral vascular accident) Onset Date: 07/05/17 Current Visit: No Status: Acute (6) Diabetes mellitus type 2, insulin dependent Onset Date: 06/14/18 Current Visit: No Status: Acute (7) Schizoaffective disorder Onset Date: 01/26/17 Current Visit: No Status: Acute Qualifiers: (8) Atrial fibrillation Onset Date: 09/01/16 Current Visit: No Status: Chronic Qualifiers: (9) Depression Onset Date: 07/05/17 Current Visit: No Status: Chronic Qualifiers: (10) Diabetes mellitus Onset Date: 03/20/15 Current Visit: No Status: Chronic Qualifiers: (11) History of CVA with residual deficit Current Visit: No Status: Chronic - Plan 1. Continue with IV antibiotics 2. COVID-19 pneumonia-standard of care for COVID-19 3. Repeat chest x-ray is symptoms are progressively worsening 4. O2 per protocol 5. Comfort measures 6. Continue with supportive care with steroids 7. O2 per protocol 8. GI and DVT prophylaxis Discharge Plan: Other (Palliative care) Plan to discharge in: 24 Hours - Advance Directives Does patient have a Living Will: No Does patient have a Durable POA for Healthcare: No - Code Status/Comfort Care Comfort Measures: Palliative Care Critical Care: No Time Spent Managing PTS Care (In Minutes): 40
--- NOTE | 2020-03-23 03:16 | P.DS ---
Discharge Date: 03/23/20 Disposition: Discharge Condition: GOOD Reason for Admission: Respiratory distress - Problems (1) Respiratory failure Current Visit: Yes Status: Acute (2) COVID-19 Current Visit: Yes Status: Acute (3) Altered mental status Onset Date: 09/01/16 Current Visit: No Status: Acute (4) Atrial fibrillation Onset Date: 06/14/18 Current Visit: No Status: Acute (5) CVA (cerebral vascular accident) Onset Date: 07/05/17 Current Visit: No Status: Acute (6) Diabetes mellitus type 2, insulin dependent Onset Date: 06/14/18 Current Visit: No Status: Acute (7) Schizoaffective disorder Onset Date: 01/26/17 Current Visit: No Status: Acute Qualifiers: (8) Atrial fibrillation Onset Date: 09/01/16 Current Visit: No Status: Chronic Qualifiers: (9) Depression Onset Date: 07/05/17 Current Visit: No Status: Chronic Qualifiers: (10) Diabetes mellitus Onset Date: 03/20/15 Current Visit: No Status: Chronic Qualifiers: (11) History of CVA with residual deficit Current Visit: No Status: Chronic Brief History of Present Illness: Patient is an 80-year-old female who is at [facility] and presented to the hospital with shortness of breath. Patient was hypoxic and having difficulty breathing. Patient had worsening mental status. Patient was sent to the hospital for further evaluation. Patient's clinical condition was very poor. She was in shock. Emergency room physician spoke with family and decision was made for comfort measures. At this time will admit patient to the hospital for palliative care. Comfort measures are in place. Hospital Course: Patient comfortably. Nurse is at bedside to assist with pronouncing patient. Patient was pronounced and time of was listed as 145. Home Medications: Acetaminophen [Tylenol*] 650 mg PO Q6HP PRN 07/05/17 Albuterol Sulfate [Albuterol Sulfate 0.083% Neb Soln] 1 vial IH BID PRN 07/05/17 Apixaban [Eliquis] 5 mg PO BID 07/05/17 Divalproex Sodium 4 cap PO BEDTIME 07/05/17 Docusate Sodium 100 mg PO BID 07/05/17 Furosemide [Lasix*] 20 mg PO DAILY 11/13/17 Insulin -Regular Human [Novolin -R*] See Protocol SQ ACHS 07/05/17 Melatonin [Melatonin*] 3 mg PO BEDTIME 07/05/17 Potassium Chloride 20 meq PO DAILY 07/05/17 Sertraline HCl 50 mg PO BEDTIME 07/05/17 carvediloL [Coreg*] 3.125 mg PO BID 07/05/17 Atorvastatin Calcium [Lipitor] 40 mg PO BEDTIME #30 tablet 07/07/17 Memantine HCl [Namenda*] 10 mg PO BID #60 tablet 07/07/17 Ascorbic Acid 500 mg PO BID 06/11/18 Codeine/APAP [Tylenol #3*] 1 tab PO Q12HP PRN 06/11/18 Insulin NPH Human [Novolin N (Humulin N)*] 15 units SQ BEDTIME 06/11/18 Insulin NPH Human [Novolin N (Humulin N)*] 20 units SQ DAILY 06/11/18 Methyl Salicylate/Menthol [Muscle Rub Cream] 35 gm TP Q12H PRN 06/11/18 Morphine Sulfate 10 mg SL Q1H PRN 06/11/18 Promethazine HCl 25 mg PO Q6H PRN 06/11/18 Rivastigmine [Exelon] 1 patch TD DAILY 06/11/18 lisinopriL [Prinivil*] 5 mg PO DAILY #30 tab 06/12/18 Patient Discharge Instructions: Patient's body will be released to the home Time spent managing pt's care (in minutes): 15
== END 2020-03-23 11:50 | disposition expired ==
LOC: ER 18:31 → ERHOLD 19:42 → 4TH 20:41
PROVIDERS: ADMIT Hospitalist; ATTEND Hospitalist
DX: U07.1 COVID-19 (principal); J96.01 Acute respiratory failure with hypoxia; J12.89 Other viral pneumonia; F03.90 Unspecified dementia, unspecified severity, without behavioral disturbance, psychotic disturbance, mood disturbance, and anxiety; I48.91 Unspecified atrial fibrillation; E11.649 Type 2 diabetes mellitus with hypoglycemia without coma; I69.991 Dysphagia following unspecified cerebrovascular disease; R13.10 Dysphagia, unspecified; J44.9 Chronic obstructive pulmonary disease, unspecified; I95.9 Hypotension, unspecified; R57.9 Shock, unspecified; I13.0 Hypertensive heart and chronic kidney disease with heart failure and stage 1 through stage 4 chronic kidney disease, or unspecified chronic kidney disease; E11.22 Type 2 diabetes mellitus with diabetic chronic kidney disease; I50.9 Heart failure, unspecified; N18.9 Chronic kidney disease, unspecified; R00.0 Tachycardia, unspecified; K59.09 Other constipation; E78.5 Hyperlipidemia, unspecified; F25.9 Schizoaffective disorder, unspecified; F32.9 Major depressive disorder, single episode, unspecified; Z66 Do not resuscitate; Z95.0 Presence of cardiac pacemaker; Z93.0 Tracheostomy status; Z79.01 Long term (current) use of anticoagulants; Z79.4 Long term (current) use of insulin; Z88.6 Allergy status to analgesic agent; Z87.440 Personal history of urinary (tract) infections; Z90.49 Acquired absence of other specified parts of digestive tract
CPT/HCPCS: 96365; 93005; 87040 ×2; 87088; 85025; 87086; 80048; 36415; 83735; 87205 ×2; 85610; 82947 ×2; 80076; 83605 ×2; 87077 ×3; 87186 ×3; 84484; 84145; 83880; 71045; 51702; 96375; 99285; J2543; J7030; G0378 ×3; 81003; 81015